=== PATIENT | female | born 1970 | race Caucasian/White ===

== ENCOUNTER 2020-07-27 00:08 | Emergency (ER) | payer MEDICARE, OTHER ==
[2020-07-27 00:20] VITALS: BP 111/63; PULSE 100; RESP 18; TEMP 97.2
--- NOTE | 2020-07-27 01:43 | XR ---
EXAM: XR Bilateral Wrists Complete, 3 or More Views CLINICAL HISTORY: Fall with pain. TECHNIQUE: Frontal, lateral and oblique views of the bilateral wrists. COMPARISON: No relevant prior studies available. FINDINGS: Bones/joints: Unremarkable. No acute fracture. No dislocation. Soft tissues: Unremarkable. No radiopaque foreign body. IMPRESSION: Negative bilateral wrist x-rays.
--- NOTE | 2020-07-27 02:02 | CT ---
EXAM: CT Head Without Intravenous Contrast CLINICAL HISTORY: Fall with pain. TECHNIQUE: Axial computed tomography images of the head/brain without intravenous contrast. CTDI is 12.9425 mGy and DLP is 382.85 mGy-cm. This CT exam was performed using one or more of the following dose reduction techniques: automated exposure control, adjustment of the mA and/or kV according to patient size, and/or use of iterative reconstruction technique. COMPARISON: None. FINDINGS: Brain: No acute findings. No acute intracranial hemorrhage, edema or abnormal mass-effect. Ventricles: No ventriculomegaly. Bones/joints: Unremarkable. No acute fracture. There appears to be a posterior fossa ventriculoperitoneal shunt. Soft tissues: Unremarkable. Sinuses: Unremarkable as visualized. No acute sinusitis. Mastoid air cells: Unremarkable as visualized. No mastoid effusion. IMPRESSION: No acute findings. EXAM: CT Cervical Spine Without Intravenous Contrast CLINICAL HISTORY: Fall with pain. TECHNIQUE: Axial computed tomography images of the cervical spine without intravenous contrast. CTDI is 11.685 mGy and DLP is 313.6 mGy-cm. This CT exam was performed using one or more of the following dose reduction techniques: automated exposure control, adjustment of the mA and/or kV according to patient size, and/or use of iterative reconstruction technique. COMPARISON: No relevant prior studies available. FINDINGS: Vertebrae: Unremarkable. No acute fracture. Discs/spinal canal/neural foramina: No acute findings. No spinal canal stenosis. Soft tissues: Tubing from a cranial peritoneal shunt seen extending along both right and left neck. 1 of these is likely nonfunctional.. IMPRESSION: No acute findings.
--- NOTE | 2020-07-27 02:05 | CT ---
EXAM: CT Maxillofacial Without Intravenous Contrast CLINICAL HISTORY: Fall with pain. TECHNIQUE: Axial computed tomography images of the face without intravenous contrast. CTDI is 12.9425 mGy and DLP is 382.85 mGy-cm. This CT exam was performed using one or more of the following dose reduction techniques: automated exposure control, adjustment of the mA and/or kV according to patient size, and/or use of iterative reconstruction technique. COMPARISON: No relevant prior studies available. FINDINGS: Bones/joints: Deformity of the right nasal bone concerning for an acute fracture. No other acute fracture is identified. Soft tissues: Unremarkable. Orbits: Unremarkable. Sinuses: Unremarkable. No air-fluid levels. IMPRESSION: Mild deformity of the right nasal bone. This is concerning for an acute fracture. Clinically correlate.
--- NOTE | 2020-07-27 02:38 | ED ---
General Adult HPI - General Chief complaint: Fall Stated complaint: Fall Time Seen by Provider: 07/27/20 00:18 Source: patient, EMS, RN notes reviewed, old records reviewed Mode of arrival: EMS - History of Present Illness Initial comments: 50-year-old female patient developmental delay to ED for fall. Patient reports that she fell forward that her face. Fall on outstretched arm. Bilateral wrist pain. No loss of consciousness. No headache. Nose pain with some deformity. No open laceration. Systemic: Pt denies fatigue, fever/chills, rash. Pt denies weakness, night sweats, weight loss. Neuro: Pt denies headache, visual disturbances, syncope or pre-syncope. HEENT: Pt denies ocular discharge or irritation, otalgia, rhinorrhea, pharyngitis or notable lymphadenopathy. Cardiopulmonary: Pt denies chest pain, SOB, heart palpitations, dyspnea on exertion. Abdominal/GI: Pt denies abdominal pain, n/v/d. : Pt denies dysuria, burning w/ urination, frequency/urgency. Denies new onset urinary or bowel incontinence. MSK: Pt denies myalgia, loss of strength or function in extremities. Neuro: Pt denies new onset weakness, paresthesias. - Related Data Allergies Allergy/AdvReac Type Severity Reaction Status Date / Time chocolate flavor Allergy Unknown Verified 07/27/20 01:08 Review of Systems ROS Statement: Those systems with pertinent positive or pertinent negative responses have been documented in the HPI. ROS Other: All systems not noted in ROS Statement are negative. Past Medical History Past Medical History: Unable to Obtain History of Any Multi-Drug Resistant Organisms: Unobtainable Past Surgical History: Unable to Obtain Past Psychological History: Unable to Obtain Smoking Status: Never smoker Past Alcohol Use History: None Reported Past Drug Use History: None Reported General Exam - General Exam Comments Initial Comments: Constitutional: NAD, AOX3, Pt has pleasant affect. HEENT: NC/AT, trachea midline, neck supple, no lymphadenopathy. Posterior pharynx non erythematous, without exudates. External ears appear normal, without discharge. Mucous membranes moist. Eyes PERRLA, EOM intact. There is no scleral icterus. No pallor noted. Cardiopulmonary: RRR, no murmurs, rubs or gallops, no JVD noted. Lungs CTAB in anterior and posterior jones. No peripheral edema. Abdominal exam: Abdomen soft and non-distended. Abdomen non-tender to palpation in all 4 quadrants. Bowel sounds active in LLQ. No hepatosplenomegaly. No ecchymosis Neuro: CN II-XII intact. No nuchal rigidity. No raccon eyes, no calabrese sign, no hemotympanum. No cervical spinal tenderness. MSK: Mild left snuffbox tenderness left-sided. Radial pulse +2. Thumb spica splint placed. Neurovascularly intact before and after splint placement. No focal area of tenderness in the right wrist. No upper tenderness. Mild deformity to nose. No septal hematoma. No open laceration. Course Vital Signs 07/27/20 00:10 Temperature 97.2 F L Pulse Rate 100 Respiratory 18 Rate Blood Pressure 111/63 O2 Sat by Pulse 100 Oximetry Procedures - Orthopedic Splinting/Casting Injury #1 Side: left Upper Extremity Immobilizer: thumb spica Medical Decision Making - Medical Decision Making 50-year-old feel patient needed for fall. Patient fell and hit her face. Patient has nasal bone fracture, no open laceration, plain films wrist are negative. Left snuffbox tenderness. Placed in thumb spica splint. Discharged outpatient ENT and orthopedic follow-up. Return precautions. Case discussed with Dr. Mcdonough. Disposition Clinical Impression: Wrist sprain, Nasal fracture Disposition: HOME SELF-CARE Condition: Stable Instructions (If sedation given, give patient instructions): Wrist Sprain (ED), Nasal Fracture (ED) Additional Instructions: Follow-up with primary care provider, orthopedic consult andENT tomorrow. Continue to wear splint. Return to ER if any worsening symptoms. Is patient prescribed a controlled substance at d/c from ED?: No Referrals: Ochoa Funes DO [Primary Care Provider] - 1-2 days Pierce Fulton MD [STAFF PHYSICIAN] - 1-2 days Ned Murphy MD [STAFF PHYSICIAN] - 1-2 days
== END 2020-07-27 03:30 | disposition home or self-care (01) ==
LOC: EEVIPCON 00:08 → EC 00:08
DX: S02.2XXA Fracture of nasal bones, initial encounter for closed fracture (principal); S63.509A Unspecified sprain of unspecified wrist, initial encounter; R62.50 Unspecified lack of expected normal physiological development in childhood; Z91.018 Allergy to other foods; W18.00XA Striking against unspecified object with subsequent fall, initial encounter; Y92.89 Other specified places as the place of occurrence of the external cause
CPT/HCPCS: 70450; 70486; 72125; 99284

== ENCOUNTER 2022-02-05 14:34 | Inpatient (IN) | payer MEDICARE, OTHER ==
--- NOTE | 2022-02-05 16:21 | XR ---
EXAMINATION TYPE: XR chest 2V DATE OF EXAM: 02/05/2022 COMPARISON: X-ray dated 01/25/2011 HISTORY: Rales and chest pain TECHNIQUE: Frontal and lateral views of the chest are obtained. FINDINGS: Grossly unremarkable lungs. No pleural effusion or pneumothorax. No cardiomegaly. No gross aggressive bone lesion. Right-sided ART EDUCATOR shunt is noted. IMPRESSION: No acute pulmonary abnormality identified.
--- NOTE | 2022-02-05 16:21 | ED ---
General Adult HPI - General Chief complaint: Extremity Injury, Lower Stated complaint: toe injury Time Seen by Provider: 02/05/22 14:58 Source: patient, EMS Mode of arrival: EMS Limitations: altered mental status - History of Present Illness Initial comments: Patient is a 51-year-old female who presents to the emergency department via EMS from her long term for right great toe swelling/bruising. Patient is a poor historian. Per nurse who called long term patient has history of intellectual disability and cerebral palsy. They state that they noticed swelling and bruising of the toe today. Patient states she stubbed her toe however does not know how or when. States her toe is painful. Upon questioning patient has wet cough. She admits to cough as well as chest pain and shortness of breath with coughing. Also admits to chills. Denies headache, runny nose, congestion, sore throat, abdominal pain, nausea, vomiting, and other concerns. - Related Data Home Medications Medication Instructions Recorded Confirmed Brivaracetam [Briviact] 50 mg PO DAILY@59902/05/22 02/05/22 Calcium Carbonate/Vitamin D3 1 tab PO DAILY@59902/05/22 02/05/22 [Calcium 600-Vit D3 5 Mcg (200 Iu)] Desmopressin Acetate 0.2 mg PO DAILY@169902/05/22 02/05/22 Divalproex ER [Depakote ER] 500 mg PO BID@599,199902/05/22 02/05/22 Docusate [Colace] 100 mg PO BID@599,169902/05/22 02/05/22 Escitalopram [Lexapro] 20 mg PO DAILY@59902/05/22 02/05/22 Lacosamide [Vimpat] 200 mg PO BID@599,19002/05/22 02/05/22 Loratadine 10 mg PO DAILY@59902/05/22 02/05/22 Ipv-Agpf-Dbyzo Acid 1 cap PO DAILY@59902/05/22 02/05/22 [-U Capsule (formulary)] Psyllium Husk [Metamucil] 0.4 gm PO DAILY@59902/05/22 02/05/22 QUEtiapine FUMARATE [SEROquel] 200 mg PO HS@199902/05/22 02/05/22 QUEtiapine [SEROquel] 100 mg PO DAILY@1600 02/05/22 02/05/22 Previous Rx's Medication Instructions Recorded HYDROcodone/APAP 7.5-325MG [[place] 1 tab PO Q4HR PRN 3 Days #18 tab 02/05/22 7.5-325] Allergies Allergy/AdvReac Type Severity Reaction Status Date / Time chocolate flavor Allergy Unknown Verified 02/05/22 17:41 Review of Systems ROS Statement: Those systems with pertinent positive or pertinent negative responses have been documented in the HPI. ROS Other: All systems not noted in ROS Statement are negative. Past Medical History Past Medical History: Seizure Disorder Additional Past Medical History / Comment(s): Called long term to verify history: Cerebral Palsy, moderate intellectual delay, urinary incontince, swelling in legs is normal for patient, club feet History of Any Multi-Drug Resistant Organisms: Unobtainable Past Surgical History: Unable to Obtain Past Psychological History: Depression Smoking Status: Never smoker Past Alcohol Use History: None Reported Past Drug Use History: None Reported General Exam Limitations: altered mental status General appearance: alert, in no apparent distress Head exam: Present: atraumatic, normocephalic, normal inspection Eye exam: Present: normal appearance, PERRL, EOMI. Absent: scleral icterus, conjunctival injection, periorbital swelling Neck exam: Present: normal inspection, full ROM Respiratory exam: Present: rales. Absent: normal lung sounds bilaterally, respiratory distress, wheezes, rhonchi, stridor, accessory muscle use Cardiovascular Exam: Present: regular rate, normal rhythm, normal heart sounds. Absent: systolic murmur, diastolic murmur, rubs, gallop, clicks GI/Abdominal exam: Present: soft, normal bowel sounds. Absent: distended, tenderness, guarding, rebound, rigid Extremities exam: Present: pedal edema (3+ bilateral ), other (swelling, erythema, ecchymosis of great right toe. tender on dorsal side. neurovascularly intact ) Neurological exam: Present: alert, oriented X3, CN II-XII intact Psychiatric exam: Present: normal affect, normal mood Skin exam: Present: warm, dry, intact, normal color. Absent: rash Course Vital Signs 02/05/22 02/05/22 02/05/22 14:36 18:07 18:17 Temperature 97.6 F Pulse Rate 83 84 80 Respiratory 18 Rate Blood Pressure 142/88 O2 Sat by Pulse 100 Oximetry Medical Decision Making - Medical Decision Making This is a 51-year-old female who presents with right great toe pain, swelling, bruising. History is difficult to obtain. The right great toe is swollen with bruising on the dorsal side. Patient reports severe pain. Neurovascularly intact. Patient has significant swelling of the bilateral legs and feet. 3+ pitting edema. Unaware of this is a new or old issue for the patient. Patient consistently has wet cough during my exam. Rales present. States she has chest pain and shortness of breath when she coughs. No previous documentation from medical history. Regular heart rate and rhythm. No murmurs gallops or rubs are appreciated. No S3 or S4. No JVD. The nurse did call the group home who state the swelling of the lower extremities is a chronic issue for patient. Apparently patient had upper respiratory infection this week and was tested for covid-19 which was negative. With little information I will obtain laboratory studies and imaging for CHF and pneumonia rule out as well as image the right great toe for injury. Laboratory studies significant for hyponatremia at 116. Negative troponin and BNP. Chest x-ray is negative for acute process. IV fluids initiated. Urine osmolality, urine sodium, and urine protein/creatinine ordered. Timed repeat CBC ordered. Right foot x-ray shows a nondisplaced transverse fracture of the proximal metaphysis of the first proximal phalanx. The toe was dannie taped patient was placed in cast boot. Patient is on Lexapro which could be an etiology to her hyponatremia. Case discussed with Jena Campbell NP. Patient will be admitted to her service with nephrology consult. Patient updated with results and is agreeable to admission. Patient admitted in stable condition. Dr. Li is my attending. - Lab Data Result diagrams: 02/05/22 16:18 02/05/22 16:18 Lab Results 02/05/22 02/05/22 02/05/22 Range/Units 16:18 16:18 16:18 WBC 6.5 (3.8-10.6) k/uL RBC 3.92 (3.80-5.40) m/uL Hgb 12.5 (11.4-16.0) gm/dL Hct 37.8 (34.0-46.0) % MCV 96.5 (80.0-100.0) fL MCH 31.8 (25.0-35.0) pg MCHC 33.0 (31.0-37.0) g/dL RDW 12.9 (11.5-15.5) % Plt Count 224 (150-450) k/uL MPV 7.5 Neutrophils % 71 % Lymphocytes % 15 % Monocytes % 11 % Eosinophils % 0 % Basophils % 0 % Neutrophils # 4.6 (1.3-7.7) k/uL Lymphocytes # 1.0 (1.0-4.8) k/uL Monocytes # 0.7 (0-1.0) k/uL Eosinophils # 0.0 (0-0.7) k/uL Basophils # 0.0 (0-0.2) k/uL Sodium 116 L* (137-145) mmol/L Potassium 4.4 (3.5-5.1) mmol/L Chloride 86 L (98-107) mmol/L Carbon Dioxide 24 (22-30) mmol/L Anion Gap 6 mmol/L BUN 11 (7-17) mg/dL Creatinine 0.50 L (0.52-1.04) mg/dL Est GFR (CKD-EPI)AfAm >90 (>60 ml/min/1.73 sqM) Est GFR (CKD-EPI)NonAf >90 (>60 ml/min/1.73 sqM) Glucose 101 H (74-99) mg/dL Calcium 8.2 L (8.4-10.2) mg/dL Total Bilirubin 0.4 (0.2-1.3) mg/dL AST 27 (14-36) U/L ALT 10 (4-34) U/L Alkaline Phosphatase 62 (38-126) U/L Troponin I (0.000-0.034) ng/mL NT-Pro-B Natriuret Pep 287 pg/mL Total Protein 6.7 (6.3-8.2) g/dL Albumin 3.5 (3.5-5.0) g/dL Coronavirus (PCR) (Not Detectd) Influenza Type A RNA (Not Detectd) Influenza Type B (PCR) (Not Detectd) 02/05/22 02/05/2202/05/22 Range/Units 16:18 16:18 16:18 WBC (3.8-10.6) k/uL RBC (3.80-5.40) m/uL Hgb (11.4-16.0) gm/dL Hct (34.0-46.0) % MCV (80.0-100.0) fL MCH (25.0-35.0) pg MCHC (31.0-37.0) g/dL RDW (11.5-15.5) % Plt Count (150-450) k/uL MPV Neutrophils % % Lymphocytes % % Monocytes % % Eosinophils % % Basophils % % Neutrophils # (1.3-7.7) k/uL Lymphocytes # (1.0-4.8) k/uL Monocytes # (0-1.0) k/uL Eosinophils # (0-0.7) k/uL Basophils # (0-0.2) k/uL Sodium (137-145) mmol/L Potassium (3.5-5.1) mmol/L Chloride (98-107) mmol/L Carbon Dioxide (22-30) mmol/L Anion Gap mmol/L BUN (7-17) mg/dL Creatinine (0.52-1.04) mg/dL Est GFR (CKD-EPI)AfAm (>60 ml/min/1.73 sqM) Est GFR (CKD-EPI)NonAf (>60 ml/min/1.73 sqM) Glucose (74-99) mg/dL Calcium (8.4-10.2) mg/dL Total Bilirubin (0.2-1.3) mg/dL AST (14-36) U/L ALT (4-34) U/L Alkaline Phosphatase (38-126) U/L Troponin I <0.012 (0.000-0.034) ng/mL NT-Pro-B Natriuret Pep pg/mL Total Protein (6.3-8.2) g/dL Albumin (3.5-5.0) g/dL Coronavirus (PCR) Not Detected (Not Detectd) Influenza Type A RNA Not Detected (Not Detectd) Influenza Type B (PCR) Not Detected (Not Detectd) Disposition Clinical Impression: Toe fracture, right, Hyponatremia Disposition: ADMITTED IP TO THIS HOSP Condition: Fair
--- NOTE | 2022-02-05 16:25 | XR ---
EXAMINATION TYPE: XR foot complete RT DATE OF EXAM: 02/05/2022 COMPARISON: NONE INDICATION: Great toe pain, bruising and swelling TECHNIQUE: 3 views of the right foot. FINDINGS: Marked hallux valgus. Diffuse osteopenia. Subtle linear lucency at the proximal metaphysis of the fir st proximal phalanx, nondisplaced or stress fracture can't be excluded, please correlate clinically. Short third and fourth metatarsal bones, likely congenital. Significant soft tissue swelling of the d orsum of the foot. No soft tissue gas. IMPRESSION: Suspected nondisplaced transverse fracture of the proximal metaphysis of the first proximal phalanx, please correlate clinically. Severe hallux valgus. Diffuse osteopenia. Other findings as described ab ove.
[2022-02-05] MEDS ORDERED: ALBUTEROL NEBULIZED 2.5 MG/3 ML INHALATION STA (16:29)
[2022-02-05 16:32] LABS: Basophils % (A) 0 %; Eosinophils % (A) 0 %; HCT 37.8 % (34.0-46.0); HGB 12.5 gm/dL (11.4-16.0); Lymphocytes % (A) 15 %; MCH 31.8 pg (25.0-35.0); MCV 96.5 fL (80.0-100.0); Mean Platelet Volume 7.5; Monocytes # (A) 0.7 k/uL (0-1.0); Monocytes % (A) 11 %; Neutrophils # (A) 4.6 k/uL (1.3-7.7); Neutrophils % (A) 71 %; Platelet Count 224 k/uL (150-450); RBC 3.92 m/uL (3.80-5.40); RDW 12.9 % (11.5-15.5); WBC 6.5 k/uL (3.8-10.6)
[2022-02-05 16:41] LABS: ALT 10 U/L (4-34); AST 27 U/L (14-36); African American GFR (CKD) >90 (>60 ml/min/1.73 sqM); Albumin 3.5 g/dL (3.5-5.0); Alkaline Phosphatase 62 U/L (38-126); Anion Gap 6 mmol/L; Blood Urea Nitrogen 11 mg/dL (7-17); Calcium 8.2 mg/dL (8.4-10.2); Carbon Dioxide 24 mmol/L (22-30); Chloride 86 mmol/L (98-107); Glucose 101 mg/dL (74-99); Non-African American GFR(CKD) >90 (>60 ml/min/1.73 sqM); Potassium 4.4 mmol/L (3.5-5.1); Total Bilirubin 0.4 mg/dL (0.2-1.3); Total Protein 6.7 g/dL (6.3-8.2)
[2022-02-05] MEDS ORDERED: HYDROcodone/APAP 10-325MG 1 EACH TAB PO ONE (16:46)
[2022-02-05 17:07] LABS: Sodium 116 mmol/L (137-145)
[2022-02-05] MEDS ORDERED: SODIUM CHLORIDE 0.9% 2,000 ML IV STA (17:08)
[2022-02-05] MEDS ORDERED: HYDROcodone/APAP 5-325MG 1 EACH TAB PO PRN (17:27)
[2022-02-05] MEDS ORDERED: NALOXONE 0.4 MG/ML 1 ML VIAL IV PRN (17:27)
[2022-02-05] MEDS: SODIUM CHLORIDE 0.9% 1,000 ML IV SCH (17:44)
[2022-02-05] MEDS ORDERED: LACOSAMIDE 50 MG TABLET PO ONE (20:00)
[2022-02-05] MEDS ORDERED: LACOSAMIDE 150 MG TABLET PO SCH (20:00)
[2022-02-05] MEDS: QUEtiapine 200 MG TAB PO SCH (20:06)
[2022-02-05] MEDS: DIVALPROEX ER 500 MG TAB.ER.24H PO SCH (20:06)
[2022-02-05 21:25] LABS: ALT 9 U/L (4-34); AST 21 U/L (14-36); African American GFR (CKD) >90 (>60 ml/min/1.73 sqM); Albumin 3.1 g/dL (3.5-5.0); Alkaline Phosphatase 56 U/L (38-126); Anion Gap 7 mmol/L; Blood Urea Nitrogen 10 mg/dL (7-17); Calcium 7.6 mg/dL (8.4-10.2); Carbon Dioxide 23 mmol/L (22-30); Chloride 89 mmol/L (98-107); Glucose 98 mg/dL (74-99); Non-African American GFR(CKD) >90 (>60 ml/min/1.73 sqM); Potassium 3.6 mmol/L (3.5-5.1); Total Bilirubin 0.4 mg/dL (0.2-1.3); Total Protein 6.2 g/dL (6.3-8.2)
[2022-02-05 21:27] LABS: Sodium 119 mmol/L (137-145)
[2022-02-06 04:12] LABS: Protein/Creatinine Ratio,Urine 1.067
[2022-02-06 04:31] LABS: Appearance,Urine Cloudy (Clear); Bacteria,Urine Few /hpf; Bilirubin,Urine Negative (Negative); Blood,Urine Small (Negative); Color,Urine Light Yellow; Glucose,Urine (UA) Negative (Negative); Ketones,Urine Negative (Negative); Leukocyte Esterase,Urine Moderate (Negative); Nitrite,Urine Negative (Negative); Protein,Urine Negative (Negative); RBC,Urine 6 /hpf (0-5); Specific Gravity,Urine 1.002 (1.001-1.035); Urobilinogen,Urine <2.0 mg/dL (<2.0); WBC,Urine 1 /hpf (0-5)
[2022-02-06] MEDS: DIVALPROEX ER 500 MG TAB.ER.24H PO SCH ×2 (06:19→19:31)
[2022-02-06] MEDS: DOCUSATE 100 MG CAP PO SCH ×2 (06:19→16:38)
[2022-02-06] MEDS: ESCITALOPRAM 20 MG TAB PO SCH (06:19)
[2022-02-06] MEDS: CALCIUM CARB-VIT D 500 MG-5 MCG TAB PO SCH (06:19)
[2022-02-06] MEDS: PRENATAL VIT-IRON-FOLIC ACID 1 EACH TABLET PO SCH (06:19)
[2022-02-06] MEDS: LORATADINE 10 MG TAB PO SCH (06:20)
[2022-02-06] MEDS: LACOSAMIDE 50 MG TABLET PO SCH ×2 (06:20→19:31)
[2022-02-06] MEDS: LACOSAMIDE 150 MG TABLET PO SCH ×2 (06:20→19:31)
[2022-02-06] MEDS: PSYLLIUM HUSK 100% 6 GM PACKET PO SCH (06:23)
[2022-02-06] MEDS: NON FORMULARY DRUG (Brivaracetam [Briviact] 50 MG Tablet) PO SCH (06:24)
[2022-02-06 08:59] LABS: African American GFR (CKD) >90 (>60 ml/min/1.73 sqM); Anion Gap 6 mmol/L; Blood Urea Nitrogen 11 mg/dL (7-17); Calcium 8.2 mg/dL (8.4-10.2); Carbon Dioxide 27 mmol/L (22-30); Chloride 97 mmol/L (98-107); Glucose 97 mg/dL (74-99); Non-African American GFR(CKD) >90 (>60 ml/min/1.73 sqM); Potassium 4.2 mmol/L (3.5-5.1); Sodium 130 mmol/L (137-145)
[2022-02-06] MEDS ORDERED: DEXTROSE 5%-0.9% NACL 1,000 ML IV SCH (09:15)
[2022-02-06] MEDS ORDERED: DEXTROSE 5% IN WATER 1,000 ML IV ONE (09:50)
--- NOTE | 2022-02-06 11:10 | P.NPCON ---
History of Present Illness - Reason for Consult hyponatremia - History of Present Illness Reason for consultation: Hyponatremia History of present illness: Patient is a 51-year-old female seen in consultation for hyponatremia. Patient's sodium level on admission was 116 at 4:16 p.m. on 02/05/2022. Repeat sodium level around 11:45 PM was 119 and this morning it is 1:30. She is receiving normal saline. Nephrology was not notified of the consultation until the patient was seen in the morning. Normal saline was immediately discontinued and she was started on D5 W at 1 50 mL an hour to reverse the correction of hyponatremia. Patient has history of cerebral palsy. Patient states she tripped and stopped her left big toe. She does admit to drinking fluids but is not able to quantify as to how much exactly. She denies history of malignancy. She does take desmopressin for enuresis/incontinence. She also takes Depakote as well as Lexapro outpatient. I don't see any thiazide diuretics and her home medication list. She has been waiting. Denies hematuria or dysuria. No chest pain or shortness of breath. No edema. Vital signs are stable. General: Awake. No acute distress. HEENT: Head exam is unremarkable. LUNGS: Breath sounds decreased. HEART: Rate and Rhythm are regular. ABDOMEN: Soft, no distention. EXTREMITITES: No edema. Past Medical History Past Medical History: Seizure Disorder Additional Past Medical History / Comment(s): Called detention to verify history: Cerebral Palsy, moderate intellectual delay, urinary incontince, swelling in legs is normal for patient, club feet History of Any Multi-Drug Resistant Organisms: Unobtainable Past Surgical History: Unable to Obtain Past Psychological History: Depression Smoking Status: Never smoker Past Alcohol Use History: None Reported Past Drug Use History: None Reported Medications and Allergies Home Medications Medication Instructions Recorded Confirmed Type Brivaracetam [Briviact] 50 mg PO DAILY@59902/05/22 02/05/22 History Calcium Carbonate/Vitamin D3 1 tab PO DAILY@59902/05/22 02/05/22 History [Calcium 600-Vit D3 5 Mcg (200 Iu)] Desmopressin Acetate 0.2 mg PO DAILY@1700 02/05/22 02/05/22 History Divalproex ER [Depakote ER] 500 mg PO BID@599,199902/05/22 02/05/22 History Docusate [Colace] 100 mg PO BID@599,1700 02/05/22 02/05/22 History Escitalopram [Lexapro] 20 mg PO DAILY@59902/05/22 02/05/22 History HYDROcodone/APAP 7.5-325MG [[place] 1 tab PO Q4HR PRN 3 Days #18 tab 02/05/22 Rx 7.5-325] Lacosamide [Vimpat] 200 mg PO BID@599,1900 02/05/22 02/05/22 History Loratadine 10 mg PO DAILY@59902/05/22 02/05/22 History Fre-Jnsg-Zivkv Acid 1 cap PO DAILY@59902/05/22 02/05/22 History [-U Capsule (formulary)] Psyllium Husk [Metamucil] 0.4 gm PO DAILY@59902/05/22 02/05/22 History QUEtiapine FUMARATE [SEROquel] 200 mg PO HS@199902/05/22 02/05/22 History QUEtiapine [SEROquel] 100 mg PO DAILY@1600 02/05/22 02/05/22 History Allergies Allergy/AdvReac Type Severity Reaction Status Date / Time chocolate flavor Allergy Unknown Verified 02/05/22 17:41 Physical Exam Vitals: Vital Signs Temp Pulse Resp BP Pulse Ox 02/06/22 10:40 72 16 120/70 99 02/06/22 07:45 97.5 F L 77 16 111/52 98 02/06/22 06:00 70 16 120/66 100 02/06/22 03:00 73 16 111/58 100 02/05/22 19:55 83 18 115/75 97 02/05/22 18:17 80 02/05/22 18:07 84 02/05/22 14:36 97.6 F 83 18 142/88 100 Intake and Output 02/05/22 02/06/22 02/06/22 22:59 06:59 14:59 Output Total 1100 Balance -1100 Output: Urine 1100 Results - Lab Results Most recent lab results Calcium 8.2 mg/dL (8.4-10.2) L 02/06/22 07:16 Urine Creatinine 15.0 mg/dL 02/06/22 03:30 Urine Total Protein 16.0 mg/dL 02/06/22 03:30 02/05/22 16:18 02/06/22 07:16 Assessment and Plan Plan: Assessment: 1. Hypovolemic hyponatremia rapidly corrected with normal saline. Sodium level was 116 at 4:15 PM on 02/05/2022 and up to 130 this morning at 7:30 AM. Urine osmolality 81. TSH normal. 2. History of cerebral palsy. 3. No proteinuria on UA however UPC 1.06 g. Further workup outpatient. Plan: D5W started this morning to reverse correction of hyponatremia. Repeat sodium level at noon. Follow-up urine sodium level. Thank you for the consultation. I will continue to follow the patient with you during her hospital stay.
[2022-02-06] MEDS: SODIUM CHLORIDE 0.9% 1,000 ML IV SCH (12:14)
[2022-02-06] MEDS ORDERED: DESMOPRESSIN ACETATE 4 MCG/ML VIAL (MDV) IV STA (13:43)
[2022-02-06] MEDS ORDERED: DEXTROSE 5% IN WATER 250 ML IV ONE (16:26)
--- NOTE | 2022-02-06 16:35 | P.HPIM ---
History of Present Illness H&P Date: 02/06/22 This is a 51 year old patient with past medical history of cerebral palsy, intellectual delay, seizure disorder, and urinary incontinence. Patient presents to the hospital with concerns for right great toe swelling and bruising. Per patient had stubbed her toe does not no one she is complaining of pain of the right great toe. Her toe was taped and foot placed in cast boot. Patient also presents with cough, pleuritic chest pain and shortness of breath with coughing. She does admit to chills. Denies nausea vomiting diarrhea. No fever noted. Home medications include Briviact, Vimpat, Lexapro, Seroquel, Depakote. She is also on Claritin, desmopressin. Vital showing 97.5, heart rate 77, blood pressure 111/52, 90% room air. Patient received IV hydration in the EC and consult was placed to nephrology for hyponatremia. Her sodium had increased from 119 up to 130 this morning which had increased to fast, and normal saline was decreased this morning. We will start patient on 3 days of oral azithromycin for the cough and sputum production. She is 99% on room air. 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 REVIEW OF SYSTEMS: CONSTITUTIONAL: No fever, no malaise, no fatigue. Reports chills HEENT: No recent visual problems or hearing problems. Denied any sore throat. CARDIOVASCULAR: No chest pain, orthopnea, PND, no palpitations, no syncope. PULMONARY: Reports some shortness of breath, productive cough GASTROINTESTINAL: No diarrhea, no nausea, no vomiting, no abdominal pain. NEUROLOGICAL: No headaches, no weakness, no numbness. HEMATOLOGICAL: Denies any bleeding or petechiae. GENITOURINARY: Denies any burning micturition, frequency, or urgency. MUSCULOSKELETAL/RHEUMATOLOGICAL: Denies swelling. Reports pain to right great toe. Painful to palpation. ENDOCRINE: Denies any polyuria or polydipsia. The rest of the 14-point review of systems is negative. PHYSICAL EXAMINATION: GENERAL: The patient is alert and oriented x3, not in any acute distress. Well developed, well nourished. HEENT: Pupils are round and equally reacting to light. EOMI. No scleral icterus. No conjunctival pallor. Normocephalic, atraumatic. No pharyngeal erythema. No thyromegaly. CARDIOVASCULAR: S1 and S2 present. No murmurs, rubs, or gallops. PULMONARY: No wheezing, there is some coarse rhonchi scattered. ABDOMEN: Soft, nontender, nondistended, normoactive bowel sounds. No palpable organomegaly. MUSCULOSKELETAL: No joint swelling or deformity. EXTREMITIES: No cyanosis, clubbing. Right great toe has some erythema, it is taped to the 2nd digit and cast boot is in place. NEUROLOGICAL: Gross neurological examination did not reveal any focal deficits. SKIN: No rashes. Assessment and Plan Assessment Hyponatremia, possible from medication effect, has improved from 119 to 130 which is an abrupt increase and IV fluids have been adjusted to D5 by nephrology team. Purulent tracheobronchitis Nondisplaced fracture right great toe has been taped and foot in cast boot History cerebral palsy Intellectual delay Seizure disorder History urinary incontinence GI Prophylaxis DVT Prophylaxis Full Code Plan Nephrology consult Follow up sodium level IV fluids adjusted to D5 by nephrology team Patient will be started on short coarse of oral azithromycin Check Procalcitonin The impression and plan of care has been dictated by Sabra Rivas, Nurse Practitioner as directed. Dr. Tanner MD I have performed a history and physical examination and medical decision making of this patient, discussed the same with the dictator, and agree with the dic tators assessment and plan as written, documented as a scribe. Based on total visit time, I have performed more than 50% of this visit. Past Medical History Past Medical History: Seizure Disorder Additional Past Medical History / Comment(s): Called [facility] to verify history: Cerebral Palsy, moderate intellectual delay, urinary incontince, swelling in legs is normal for patient, club feet History of Any Multi-Drug Resistant Organisms: Unobtainable Past Surgical History: Unable to Obtain Past Psychological History: Depression Smoking Status: Never smoker Past Alcohol Use History: None Reported Past Drug Use History: None Reported Medications and Allergies Home Medications Medication Instructions Recorded Confirmed Type Brivaracetam [Briviact] 50 mg PO DAILY@59902/05/22 02/05/22 History Calcium Carbonate/Vitamin D3 1 tab PO DAILY@59902/05/22 02/05/22 History [Calcium 600-Vit D3 5 Mcg (200 Iu)] Desmopressin Acetate 0.2 mg PO DAILY@169902/05/22 02/05/22 History Divalproex ER [Depakote ER] 500 mg PO BID@599,199902/05/22 02/05/22 History Docusate [Colace] 100 mg PO BID@599,169902/05/22 02/05/22 History Escitalopram [Lexapro] 20 mg PO DAILY@59902/05/22 02/05/22 History HYDROcodone/APAP 7.5-325MG [[place] 1 tab PO Q4HR PRN 3 Days #18 tab 02/05/22 Rx 7.5-325] Lacosamide [Vimpat] 200 mg PO BID@599,1900 02/05/22 02/05/22 History Loratadine 10 mg PO DAILY@59902/05/22 02/05/22 History Eij-Zeoj-Gjfno Acid 1 cap PO DAILY@59902/05/22 02/05/22 History [-U Capsule (formulary)] Psyllium Husk [Metamucil] 0.4 gm PO DAILY@59902/05/22 02/05/22 History QUEtiapine FUMARATE [SEROquel] 200 mg PO HS@199902/05/22 02/05/22 History QUEtiapine [SEROquel] 100 mg PO DAILY@159902/05/22 02/05/22 History Allergies Allergy/AdvReac Type Severity Reaction Status Date / Time chocolate flavor Allergy Unknown Verified 02/05/22 17:41 Physical Exam Vitals: Vital Signs Temp Pulse Resp BP Pulse Ox 02/06/22 07:45 97.5 F L 77 16 111/52 98 02/06/22 06:00 70 16 120/66 100 02/06/22 03:00 73 16 111/58 100 02/05/22 19:55 83 18 115/75 97 02/05/22 18:17 80 02/05/22 18:07 84 02/05/22 14:36 97.6 F 83 18 142/88 100 Intake and Output 02/05/22 02/06/22 02/06/22 22:59 06:59 14:59 Output Total 1100 Balance -1100 Output: Urine 1100 Results CBC & Chem 7: 02/05/22 16:18 02/06/22 15:46 Labs: Abnormal Lab Results - Last 24 Hours (Table) 02/05/22 02/05/22 02/06/22 Range/Units 16:18 Unknown 03:30 Sodium 116 L* 119 L* (137-145) mmol/L Chloride 86 L 89 L (98-107) mmol/L Creatinine 0.50 L (0.52-1.04) mg/dL Glucose 101 H (74-99) mg/dL Calcium 8.2 L 7.6 L (8.4-10.2) mg/dL Total Protein 6.2 L (6.3-8.2) g/dL Albumin 3.1 L (3.5-5.0) g/dL Urine Appearance Cloudy H (Clear) Urine Blood Small H (Negative) Ur Leukocyte Esterase Moderate H (Negative) Urine RBC 6 H (0-5) /hpf Urine Bacteria Few H (None) /hpf 02/06/22 Range/Units 07:16 Sodium 130 L (137-145) mmol/L Chloride 97 L (98-107) mmol/L Creatinine (0.52-1.04) mg/dL Glucose (74-99) mg/dL Calcium 8.2 L (8.4-10.2) mg/dL Total Protein (6.3-8.2) g/dL Albumin (3.5-5.0) g/dL Urine Appearance (Clear) Urine Blood (Negative) Ur Leukocyte Esterase (Negative) Urine RBC (0-5) /hpf Urine Bacteria (None) /hpf Assessment and Plan Time with Patient: Less than 30
[2022-02-06] MEDS ORDERED: ALBUTEROL NEBULIZED 2.5 MG/3 ML INHALATION PRN (16:37)
[2022-02-06] MEDS: QUEtiapine 100 MG TAB PO SCH (16:56)
[2022-02-06] MEDS: AZITHROMYCIN 500 MG TAB PO SCH (16:56)
[2022-02-06] MEDS: QUEtiapine 200 MG TAB PO SCH (19:31)
[2022-02-06] MEDS: DEXTROSE 5% IN WATER 1,000 ML IV SCH (20:10)
[2022-02-07] MEDS: NON FORMULARY DRUG (Brivaracetam [Briviact] 50 MG Tablet) PO SCH (05:05)
[2022-02-07] MEDS: LACOSAMIDE 50 MG TABLET PO SCH ×2 (05:33→19:20)
[2022-02-07] MEDS: PSYLLIUM HUSK 100% 6 GM PACKET PO SCH (05:34)
[2022-02-07] MEDS: LORATADINE 10 MG TAB PO SCH (05:34)
[2022-02-07] MEDS: DOCUSATE 100 MG CAP PO SCH ×2 (05:34→16:19)
[2022-02-07] MEDS: LACOSAMIDE 150 MG TABLET PO SCH ×2 (05:34→19:20)
[2022-02-07] MEDS: DIVALPROEX ER 500 MG TAB.ER.24H PO SCH ×2 (05:34→19:20)
[2022-02-07] MEDS: CALCIUM CARB-VIT D 500 MG-5 MCG TAB PO SCH (05:34)
[2022-02-07] MEDS: PRENATAL VIT-IRON-FOLIC ACID 1 EACH TABLET PO SCH (05:55)
[2022-02-07] MEDS: ESCITALOPRAM 20 MG TAB PO SCH (05:55)
[2022-02-07] MEDS: DEXTROSE 5% IN WATER 1,000 ML IV SCH (06:49)
[2022-02-07 09:21] LABS: African American GFR (CKD) >90 (>60 ml/min/1.73 sqM); Anion Gap 8 mmol/L; Blood Urea Nitrogen 14 mg/dL (7-17); Calcium 8.2 mg/dL (8.4-10.2); Carbon Dioxide 22 mmol/L (22-30); Chloride 97 mmol/L (98-107); Glucose 87 mg/dL (74-99); Magnesium 1.9 mg/dL (1.6-2.3); Non-African American GFR(CKD) >90 (>60 ml/min/1.73 sqM); Potassium 4.3 mmol/L (3.5-5.1); Sodium 127 mmol/L (137-145)
--- NOTE | 2022-02-07 10:35 | P.PN ---
Subjective Patient is seen in follow-up for hyponatremia. Sodium level rapidly corrected to normal saline and she did receive DDAVP as well as D5W infusion yesterday. Sodium level came down to 124 as of last night and is 127 this morning. Patient has no active complaints. Oral intake has been fair. No vomiting or diarrhea. Vital signs are stable. General: Awake. No acute distress. HEENT: Head exam is unremarkable. LUNGS: Breath sounds decreased. HEART: Rate and Rhythm are regular. ABDOMEN: Soft, no distention. EXTREMITITES: No edema. Objective - Vital Signs Vital signs: Vital Signs Temp 98.3 F 02/07/22 05:00 Pulse 86 02/07/22 08:34 Resp 16 02/07/22 05:00 BP 105/65 02/07/22 05:00 Pulse Ox 97 02/07/22 05:00 FiO2 Intake & Output 02/06/22 02/07/22 02/07/22 18:59 06:59 18:59 Output Total 450 Balance -450 Weight 68.1 kg Output: Urine 450 Other: Voiding Method External Catheter Diaper Incontinent External Catheter # Voids 2 1 2 # Bowel Movements 1 - Labs CBC & Chem 7: 02/05/22 16:18 02/07/22 08:09 Labs: Abnormal Lab Results - Last 24 Hours (Table) 02/06/22 02/06/22 02/06/22 Range/Units 03:30 13:11 15:46 Sodium 130 L 129 L (137-145) mmol/L Chloride (98-107) mmol/L Calcium (8.4-10.2) mg/dL Ur Random Sodium <20 L (40-220) mmol/L 02/06/22 02/06/22 02/07/22 Range/Units 18:31 21:16 01:17 Sodium 127 L 124 L 124 L (137-145) mmol/L Chloride (98-107) mmol/L Calcium (8.4-10.2) mg/dL Ur Random Sodium (40-220) mmol/L 02/07/22 Range/Units 08:09 Sodium 127 L (137-145) mmol/L Chloride 97 L (98-107) mmol/L Calcium 8.2 L (8.4-10.2) mg/dL Ur Random Sodium (40-220) mmol/L Assessment and Plan Plan: Assessment: 1. Hypovolemic hyponatremia rapidly corrected with normal saline. Also component of poor solute intake. Patient is also on Keppra and Lexapro which can induce SIADH. Status post DDAVP and D5W infusion. Sodium level 124 last night and is up to 127 this morning. Urine osmolality 81. Urine sodium less than 20. TSH normal. 2. History of cerebral palsy. 3. No proteinuria on UA however UPC 1.06 g. Further workup outpatient. Plan: Encouraged oral intake. 1500 mL fluid restriction. Repeat labs in the morning. Currently off IV fluids.
[2022-02-07] MEDS ORDERED: ACETAMINOPHEN TAB 325 MG TAB PO PRN (15:15)
--- NOTE | 2022-02-07 15:16 | P.PN ---
Subjective Progress Note Date: 02/07/22 This is a 51 year old patient with past medical history of cerebral palsy, intellectual delay, seizure disorder, and urinary incontinence. Patient presents to the hospital with concerns for right great toe swelling and bruising. Per patient had stubbed her toe does not no one she is complaining of pain of the right great toe. Her toe was taped and foot placed in cast boot. Patient also presents with cough, pleuritic chest pain and shortness of breath with coughing. She does admit to chills. Denies nausea vomiting diarrhea. No fever noted. Home medications include Briviact, Vimpat, Lexapro, Seroquel, Depakote. She is also on Claritin, desmopressin. Vital showing 97.5, heart rate 77, blood pres sure 111/52, 90% room air. Patient received IV hydration in the EC and consult was placed to nephrology for hyponatremia. Her sodium had increased from 119 up to 130 this morning which had increased to fast, and normal saline was decreased this morning. We will start patient on 3 days of oral azithromycin for the cough and sputum production. She is 99% on room air. 02/07/2022 Patient evaluated today sitting up in the chair. She does report pain to the great toe and winces when the sheet is placed back on the foot. During examination her mood is pleasant, facial expressions are relaxed and she is witnessed to be wiggling her right great toe without difficulty. She continues with dannie taping, and cast boot. She continues to complain of cough with shortness of breath, additionally she has some faint crackles in the bases. Her procalcitonin level showing 0.06. Her sodium level is 127 she continues on IV fluids and is now on a 1500 cc fluid restriction. Potassium 4.3, chloride 97, BUN 14, creatinine 0.65, magnesium today 1.9. She continues on oral azithromax, albuterol. Vitals stable today, afebrile, heart rate 72, blood pressure 112/72, 98% room air. Review of Systems Constitutional: Denied any fatigue denied any fever. Cardio vascular: denied any chest pain, palpitations Gastrointestinal: denied any nausea, vomiting, diarrhea Pulmonary: Reports some shortness of breath, reports intermittent cough Neurologic denied any new focal deficits All inpatient medications were reviewed and appropriate changes in these medications as dictated in the interval history and assessment and plan. PHYSICAL EXAMINATION: GENERAL: The patient is alert and oriented x3, not in any acute distress. Well developed, well nourished. HEENT: Pupils are round and equally reacting to light. EOMI. No scleral icterus. No conjunctival pallor. Normocephalic, atraumatic. No pharyngeal erythema. No thyromegaly. CARDIOVASCULAR: S1 and S2 present. No murmurs, rubs, or gallops. PULMONARY: No wheezing, there is some coarse rhonchi scattered. ABDOMEN: Soft, nontender, nondistended, normoactive bowel sounds. No palpable organomegaly. MUSCULOSKELETAL: No joint swelling or deformity. EXTREMITIES: No cyanosis, clubbing. Right great toe has some erythema, it is taped to the 2nd digit and cast boot is in place. NEUROLOGICAL: Gross neurological examination did not reveal any focal deficits. SKIN: No rashes. Assessment and Plan Assessment Hyponatremia hypovolemic, possible from medication effect, current potassium is now 127 nephrology is following the patient closely Purulent tracheobronchitis, procalcitonin is negative at 0.06, will complete 2 more days of oral azithromycin empirically Nondisplaced fracture right great toe has been taped and foot in cast boot History cerebral palsy Intellectual delay Seizure disorder History urinary incontinence GI Prophylaxis DVT Prophylaxis Full Code Plan Nephrology consult Conntinues off IV fluids and 1500 fluid restriction Continue on oral azithromycin Follow up AM labs Pain management Patient will require sub acute rehab on discharge prior to return to senior living The impression and plan of care has been dictated by Sabra Rivas, Nurse Practitioner as directed. Dr. Tanner MD I have performed a history and physical examination and medical decision making of this patient, discussed the same with the dictator, and agree with the dictators assessment and plan as written, documented as a scribe. Based on total visit time, I have performed more than 50% of this visit. Objective - Vital Signs Vital signs: Vital Signs Temp 97.8 F 02/07/22 11:48 Pulse 72 02/07/22 11:48 Resp 16 02/07/22 11:48 BP 112/72 02/07/22 11:48 Pulse Ox 98 02/07/22 11:48 FiO2 Intake & Output 02/06/22 02/07/22 02/07/22 18:59 06:59 18:59 Intake Total 360 Output Total 450 Balance -450 360 Weight 68.1 kg Intake: Oral 360 Output: Urine 450 Other: Voiding Method External Catheter Diaper Incontinent External Catheter # Voids 2 1 2 # Bowel Movements 1 - Labs CBC & Chem 7: 02/05/22 16:18 02/07/22 08:09 Labs: Abnormal Lab Results - Last 24 Hours (Table) 02/06/22 02/06/22 02/06/22 Range/Units 03:30 13:11 15:46 Sodium 130 L 129 L (137-145) mmol/L Chloride (98-107) mmol/L Calcium (8.4-10.2) mg/dL Ur Random Sodium <20 L (40-220) mmol/L 02/06/22 02/06/22 02/07/22 Range/Units 18:31 21:16 01:17 Sodium 127 L 124 L 124 L (137-145) mmol/L Chloride (98-107) mmol/L Calcium (8.4-10.2) mg/dL Ur Random Sodium (40-220) mmol/L 02/07/22 Range/Units 08:09 Sodium 127 L (137-145) mmol/L Chloride 97 L (98-107) mmol/L Calcium 8.2 L (8.4-10.2) mg/dL Ur Random Sodium (40-220) mmol/L Assessment and Plan Time with Patient: Less than 30
[2022-02-07] MEDS: AZITHROMYCIN 500 MG TAB PO SCH (16:19)
[2022-02-07] MEDS: QUEtiapine 100 MG TAB PO SCH (16:20)
[2022-02-07] MEDS: QUEtiapine 200 MG TAB PO SCH (19:20)
[2022-02-08] MEDS: NON FORMULARY DRUG (Brivaracetam [Briviact] 50 MG Tablet) PO SCH (04:59)
[2022-02-08] MEDS: LORATADINE 10 MG TAB PO SCH (05:04)
[2022-02-08] MEDS: LACOSAMIDE 50 MG TABLET PO SCH ×2 (05:04→17:33)
[2022-02-08] MEDS: PSYLLIUM HUSK 100% 6 GM PACKET PO SCH (05:04)
[2022-02-08] MEDS: DIVALPROEX ER 500 MG TAB.ER.24H PO SCH ×2 (05:04→20:12)
[2022-02-08] MEDS: DOCUSATE 100 MG CAP PO SCH ×2 (05:04→17:28)
[2022-02-08] MEDS: LACOSAMIDE 150 MG TABLET PO SCH ×2 (05:04→17:33)
[2022-02-08] MEDS: CALCIUM CARB-VIT D 500 MG-5 MCG TAB PO SCH (05:04)
[2022-02-08] MEDS: PRENATAL VIT-IRON-FOLIC ACID 1 EACH TABLET PO SCH (05:57)
[2022-02-08] MEDS: ESCITALOPRAM 20 MG TAB PO SCH (05:57)
[2022-02-08] MEDS: HYDROcodone/APAP 5-325MG 1 EACH TAB PO PRN ×2 (09:34→20:19)
[2022-02-08 11:19] LABS: African American GFR (CKD) 100.3 (60.0-200.0); Anion Gap 7.1 mmol/L (10.00-18.00); Blood Urea Nitrogen 15.2 mg/dL (9.0-27.0); Calcium 8.5 mg/dL (8.7-10.3); Carbon Dioxide 23.9 mmol/L (20.0-27.5); Magnesium 1.9 mg/dL (1.5-2.4); Non-African American GFR(CKD) 86.6 (60.0-200.0); Potassium 4.6 mmol/L (3.5-5.5)
--- NOTE | 2022-02-08 11:24 | P.PN ---
Subjective Patient is seen in follow-up for hyponatremia. Sodium level 132. Resting in bed. Oral intake here. No vomiting or diarrhea. Vital signs are stable. General: Awake. No acute distress. HEENT: Head exam is unremarkable. LUNGS: Breath sounds decreased. HEART: Rate and Rhythm are regular. ABDOMEN: Soft, no distention. EXTREMITITES: No edema. Objective - Vital Signs Vital signs: Vital Signs Temp 97.8 F 02/08/22 05:00 Pulse 67 02/08/22 08:00 Resp 16 02/08/22 08:00 BP 133/87 02/08/22 05:00 Pulse Ox 95 02/08/22 05:00 FiO2 Intake & Output 02/07/22 02/08/22 02/08/22 18:59 06:59 18:59 Intake Total 600 540 Balance 600 540 Weight 69 kg Intake: Oral 600 540 Other: Voiding Method Diaper Diaper Diaper Incontinent Incontinent Incontinent External Catheter # Voids 3 4 # Bowel Movements 1 1 - Labs CBC & Chem 7: 02/05/22 16:18 02/08/22 07:06 Labs: Abnormal Lab Results - Last 24 Hours (Table) 02/07/22 02/08/22 Range/Units 17:19 07:06 Sodium 128 L 132 L (137-145) mmol/L Anion Gap 7.10 L (10.00-18.00) mmol/L Calcium 8.5 L (8.7-10.3) mg/dL Assessment and Plan Plan: Assessment: 1. Hypovolemic hyponatremia rapidly corrected with normal saline. Also component of poor solute intake. Patient is also on Keppra and Lexapro which can induce SIADH. Status post DDAVP and D5W infusion. Sodium level 132 today. Urine osmolality 81. Urine sodium less than 20. TSH normal. 2. History of cerebral palsy. 3. No proteinuria on UA however UPC 1.06 g. Further workup outpatient. Plan: Encouraged oral intake. 1500 mL fluid restriction. Stable to be discharged home from nephrology standpoint. Hold off on desmopressin. Patient to maintain 40-45 oz fluid restriction per day upon discharge. Repeat BMP and magnesium level 2-3 days postdischarge. Follow-up outpatient in 1 week.
--- NOTE | 2022-02-08 13:01 | P.DS ---
Providers Date of admission: 02/05/22 18:41 Attending physician: Tee Quinn Consults: 02/05/22 17:28 Consult Physician Routine Consulting Provider: Jonas Patel Consult Reason/Comments: hyponatremia Do you want consulting provider notified?: Yes Primary care physician: [facility] Course: Final Diagnosis Hyponatremia hypovolemic, possible from medication effect and poor oral intake, improved Bronchitis, resolved, lungs are clear, cough improved Nondisplaced fracture right great toe has been taped and foot in cast boot History cerebral palsy Intellectual delay Seizure disorder History urinary incontinence Full Code Discharge Disposition Patient stable for discharge to rehab for strengthening and plan to return to [facility]. She presented to sodium level of 116 it is now 132. Nephrology recommending to hold desmopressin repeat sodium level in 2-3 days and follow up outpatient in 1 week. Otherwise, follow up orthopedic for right great toe nondisplaced fracture, pain management and bowel regimine on discharge. One more day of oral azithromycin on discharge. Patient is on lexapro, which in combination with azithromycin risk for QT prolongation, QT interval reviewed; 397. Hospital Course This is a 51 year old patient with past medical history of cerebral palsy, intellectual delay, seizure disorder, and urinary incontinence. Patient presents to the hospital with concerns for right great toe swelling and bruising. Per patient had stubbed her toe does not no one she is complaining of pain of the right great toe. Her toe was taped and foot placed in cast boot. She will be discharged on pain managment and follow up with Dr Eason outpatient. Patient also presents with cough, pleuritic chest pain and shortness of breath with coughing. She received albuterol nebulized and is on day 2 of 3 of oral azithromycin. Symptoms have resolved, there is no shortness of breath, there is no wheezing noted, and she denies cough. Denies nausea vomiting diarrhea. No fever noted. Denies dysuria, denies abdominal pain, subprapubic pain. Home medications include Briviact, Vimpat, Lexapro, Seroquel, Depakote. She is also on Claritin, desmopressin. Vital showing 97.5, heart rate 77, blood pressure 111/52, 90% room air on admission. Patient received IV hydration in the EC and consult was placed to nephrology for hyponatremia. Her sodium had increased from 119 up to 130 while in the EC and had received IV fluids with normal saline. Nephrology evaluated the patient and she was started on D5 and received desmopressin IV. Sodium then dropped into the 120s and she was placed on fluid restriction. Sodium has now improved to 132 and oral desmopressin will be placed on hold for discharge. Other diagnostics Covid / Influenza A / Influenza B negative Urine showing cloudy urine, small blood, moderate luekocyte esterase, few bacteria. Urine random sodium <20. Chest xray showing no acute pulmonary abnormality Foot xray suspected nondisplaced transverse fracture of proximal metaphysis of the first proximal phalanx. There is also severe hallux vagus, diffuse osteopenia. EKG completed showing sinus rhythm heart rate 77, QT interval 397 Procalcitonin 0.06 02/08/2022 Patient evaluated today, she is up in the chair, she has been working with PT and will discharge to subacute rehab. Hold desmopressin and follow up sodium. Vitals today 100/65, 97% room air, afebrile, heart rate 71. Sodium 132, potassium 4.6, magnesium 1.9, calcium 8.5. She denies chest pain, shortness of breath. Denies nausea, vomiting, diarrhea. Bowels are moving. She is incontinent of urine which is baseline. Mentation at baseline as well. She complains of pain to right great toe, receiving norco on bowel regimen. Lungs are clear, S1 S2 auscultated. Abdomen is soft and nontender. No peripheral edema. Follow up and discharge instructions as above. Continue fluid restriction. Please see medication reconciliation for a list of current medication. Thank you for allowing us to participate in the care of this patient. The impression and plan of care has been dictated by Sabra Rivas, Nurse Practitioner as directed. Dr. Tanner MD I have performed a history and physical examination and medical decision making of this patient, discussed the same with the dictator, and agree with the dictators assessment and plan as written, documented as a scribe. Based on total visit time, I have performed more than 50% of this visit. Patient Condition at Discharge: Stable Plan - Discharge Summary Discharge Rx Participant: No New Discharge Prescriptions: New HYDROcodone/APAP 7.5-325MG [[place] 7.5-325] 1 tab PO Q4HR PRN 3 Days #18 tab PRN Reason: Pain Albuterol Nebulized [Ventolin Nebulized] 2.5 mg INHALATION RT-QID PRN ml PRN Reason: Shortness Of Breath Or Wheezing Continue Loratadine 10 mg PO DAILY@0600 Escitalopram [Lexapro] 20 mg PO DAILY@0600 Docusate [Colace] 100 mg PO BID@0600,1700 Brivaracetam [Briviact] 50 mg PO DAILY@0600 QUEtiapine FUMARATE [SEROquel] 200 mg PO HS@2000 Xxh-Tuwb-Rlkay Acid [-U Capsule (formulary)] 1 cap PO DAILY@0600 Calcium Carbonate/Vitamin D3 [Calcium 600-Vit D3 5 Mcg (200 Iu)] 1 tab PO DAILY@0600 QUEtiapine [SEROquel] 100 mg PO DAILY@1600 Divalproex ER [Depakote ER] 500 mg PO BID@0600,2000 Psyllium Husk [Metamucil] 0.4 gm PO DAILY@0600 Lacosamide [Vimpat] 200 mg PO BID@0600,1900 #4 tab Discontinued Desmopressin Acetate 0.2 mg PO DAILY@1700 Discharge Medication List Brivaracetam [Briviact] 50 mg PO DAILY@0602/05/22 [History] Calcium Carbonate/Vitamin D3 [Calcium 600-Vit D3 5 Mcg (200 Iu)] 1 tab PO DAILY@0600 02/05/22 [History] Divalproex ER [Depakote ER] 500 mg PO BID@06,199902/05/22 [History] Docusate [Colace] 100 mg PO BID@0600,1700 02/05/22 [History] Escitalopram [Lexapro] 20 mg PO DAILY@0602/05/22 [History] HYDROcodone/APAP 7.5-325MG [[place] 7.5-325] 1 tab PO Q4HR PRN 3 Days #18 tab 02/05/22 [Rx] Loratadine 10 mg PO DAILY@0602/05/22 [History] Wyz-Lume-Wlcgn Acid [-U Capsule (formulary)] 1 cap PO DAILY@0602/05/22 [History] Psyllium Husk [Metamucil] 0.4 gm PO DAILY@0600 02/05/22 [History] QUEtiapine FUMARATE [SEROquel] 200 mg PO HS@2000 02/05/22 [History] QUEtiapine [SEROquel] 100 mg PO DAILY@1600 02/05/22 [History] Albuterol Nebulized [Ventolin Nebulized] 2.5 mg INHALATION RT-QID PRN ml 02/08/22 [Rx] Lacosamide [Vimpat] 200 mg PO BID@0600,1900 #4 tab 02/08/22 [Rx] Follow up Appointment(s)/Referral(s): Ochoa Funes DO [Primary Care Provider] - 1-2 days Aaron Kent MD [Medical Doctor] - 1-2 days Jonas Patel DO [STAFF PHYSICIAN] - 1 Week Ambulatory/Diagnostic Orders: Basic Metabolic Panel [LAB.AMB] Time Frame: 2 Days, Location: None Selected Activity/Diet/Wound Care/Special Instructions: Continue to hold desmopressin Repeat labs in 2-3 to monitor sodium level Continue with Fluid restriction 40 to 45 oz (1200 to 1350 mls) per 24 hours Follow up with Dr Patel in 1 week Follow up with orthopedics outpatient Continue with taping and boot for right great toe fracture Continue with pain management Discharge Disposition: TRANSFER TO SNF/ECF
[2022-02-08] MEDS: QUEtiapine 100 MG TAB PO SCH (17:28)
[2022-02-08] MEDS: AZITHROMYCIN 500 MG TAB PO SCH (17:28)
[2022-02-08] MEDS: QUEtiapine 200 MG TAB PO SCH (20:12)
[2022-02-09] MEDS: NON FORMULARY DRUG (Brivaracetam [Briviact] 50 MG Tablet) PO SCH (04:57)
[2022-02-09] MEDS: LACOSAMIDE 150 MG TABLET PO SCH ×2 (05:43→20:04)
[2022-02-09] MEDS: LORATADINE 10 MG TAB PO SCH (05:43)
[2022-02-09] MEDS: ESCITALOPRAM 20 MG TAB PO SCH (05:43)
[2022-02-09] MEDS: CALCIUM CARB-VIT D 500 MG-5 MCG TAB PO SCH (05:43)
[2022-02-09] MEDS: PRENATAL VIT-IRON-FOLIC ACID 1 EACH TABLET PO SCH (05:43)
[2022-02-09] MEDS: PSYLLIUM HUSK 100% 6 GM PACKET PO SCH (05:44)
[2022-02-09] MEDS: DIVALPROEX ER 500 MG TAB.ER.24H PO SCH ×2 (05:44→20:04)
[2022-02-09] MEDS: DOCUSATE 100 MG CAP PO SCH ×2 (05:44→15:32)
[2022-02-09] MEDS: LACOSAMIDE 50 MG TABLET PO SCH ×2 (05:44→20:04)
--- NOTE | 2022-02-09 11:18 | P.PN ---
Subjective Patient is seen in follow-up for hyponatremia. Sodium level 132 as of yesterday. Resting in bed. Oral intake here. No vomiting or diarrhea. Vital signs are stable. General: Awake. No acute distress. HEENT: Head exam is unremarkable. LUNGS: Breath sounds decreased. HEART: Rate and Rhythm are regular. ABDOMEN: Soft, no distention. EXTREMITITES: No edema. Objective - Vital Signs Vital signs: Vital Signs Temp 98.2 F 02/09/22 05:21 Pulse 79 02/09/22 05:21 Resp 18 02/09/22 05:21 BP 109/70 02/09/22 05:21 Pulse Ox 97 02/09/22 05:21 FiO2 Intake & Output 02/08/22 02/09/22 02/09/22 18:59 06:59 18:59 Intake Total 480 Output Total 500 Balance -20 Intake: Oral 480 Output: Urine 500 Other: Voiding Method Diaper Diaper Diaper Incontinent Incontinent Incontinent # Voids 2 0 # Bowel Movements 1 - Labs CBC & Chem 7: 02/05/22 16:18 02/08/22 07:06 Labs: Abnormal Lab Results - Last 24 Hours (Table) 02/08/22 Range/Units 07:06 Sodium 132 L (135-145) mmol/L Anion Gap 7.10 L (10.00-18.00) mmol/L Calcium 8.5 L (8.7-10.3) mg/dL Assessment and Plan Plan: Assessment: 1. Hypovolemic hyponatremia rapidly corrected with normal saline. Also compo nent of poor solute intake. Patient is also on Keppra and Lexapro which can induce SIADH. Status post DDAVP and D5W infusion. Sodium level 132 as of yesterday. Urine osmolality 81. Urine sodium less than 20. TSH normal. 2. History of cerebral palsy. 3. No proteinuria on UA however UPC 1.06 g. Further workup outpatient. Plan: Encouraged oral intake. 1500 mL fluid restriction. Stable to be discharged home from nephrology standpoint. Hold off on desmopressin. Patient to maintain 40-45 oz fluid restriction per day upon discharge. Repeat BMP and magnesium level 2-3 days postdischarge. Follow-up outpatient in 1 week.
[2022-02-09] MEDS: QUEtiapine 100 MG TAB PO SCH (15:33)
[2022-02-09] MEDS: QUEtiapine 200 MG TAB PO SCH (20:59)
--- NOTE | 2022-02-10 00:10 | P.PN ---
Subjective Progress Note Date: 02/09/22 This is a 51 year old patient with past medical history of cerebral palsy, intellectual delay, seizure disorder, and urinary incontinence. Patient presents to the hospital with concerns for right great toe swelling and bruising. Per patient had stubbed her toe does not no one she is complaining of pain of the right great toe. Her toe was taped and foot placed in cast boot. Patient also presents with cough, pleuritic chest pain and shortness of breath with coughing. She does admit to chills. Denies nausea vomiting diarrhea. No fever noted. Home medications include Briviact, Vimpat, Lexapro, Seroquel, Depakote. She is also on Claritin, desmopressin. Vital showing 97.5, heart rate 77, blood pres sure 111/52, 90% room air. Patient received IV hydration in the EC and consult was placed to nephrology for hyponatremia. Her sodium had increased from 119 up to 130 this morning which had increased to fast, and normal saline was decreased this morning. We will start patient on 3 days of oral azithromycin for the cough and sputum production. She is 99% on room air. 02/07/2022 Patient evaluated today sitting up in the chair. She does report pain to the great toe and winces when the sheet is placed back on the foot. During examination her mood is pleasant, facial expressions are relaxed and she is witnessed to be wiggling her right great toe without difficulty. She continues with dannie taping, and cast boot. She continues to complain of cough with shortness of breath, additionally she has some faint crackles in the bases. Her procalcitonin level showing 0.06. Her sodium level is 127 she continues on IV fluids and is now on a 1500 cc fluid restriction. Potassium 4.3, chloride 97, BUN 14, creatinine 0.65, magnesium today 1.9. She continues on oral azithromax, albuterol. Vitals stable today, afebrile, heart rate 72, blood pressure 112/72, 98% room air. 02/08/2022 Patient evaluated today, she is up in the chair, she has been working with PT and will discharge to subacute rehab. Hold desmopressin and follow up sodium. Vitals today 100/65, 97% room air, afebrile, heart rate 71. Sodium 132, potassium 4.6, magnesium 1.9, calcium 8.5. She denies chest pain, shortness of breath. Denies nausea, vomiting, diarrhea. Bowels are moving. She is incontinent of urine which is baseline. Mentation at baseline as well. She complains of pain to right great toe, receiving norco on bowel regimen. Lungs are clear, S1 S2 auscultated. Abdomen is soft and nontender. No peripheral edema. Follow up and discharge instructions as above. Continue fluid restriction. 02/09/2022 Patient is pending insurance auth for rehab. No acute events overnight. She is working with PT and sitting up in the chair today. Desmopression on hold and will check sodium level tomorrow. She denies pain. Remains afebrile, blood pressure 115/69. Review of Systems Constitutional: Denied any fatigue denied any fever. Cardio vascular: denied any chest pain, palpitations Gastrointestinal: denied any nausea, vomiting, diarrhea Pulmonary: Denies cough, denies shortness of breath Neurologic denied any new focal deficits All inpatient medications were reviewed and appropriate changes in these medications as dictated in the interval history and assessment and plan. PHYSICAL EXAMINATION: GENERAL: The patient is alert and oriented x3, not in any acute distress. Well developed, well nourished. HEENT: Pupils are round and equally reacting to light. EOMI. No scleral icterus. No conjunctival pallor. Normocephalic, atraumatic. No pharyngeal erythema. No thyromegaly. CARDIOVASCULAR: S1 and S2 present. No murmurs, rubs, or gallops. PULMONARY: No wheezing, there is some coarse rhonchi scattered. ABDOMEN: Soft, nontender, nondistended, normoactive bowel sounds. No palpable organomegaly. MUSCULOSKELETAL: No joint swelling or deformity. EXTREMITIES: No cyanosis, clubbing. Right great toe has some erythema, it is taped to the 2nd digit and cast boot is in place. NEUROLOGICAL: Gross neurological examination did not reveal any focal deficits. SKIN: No rashes. Assessment and Plan Assessment Hyponatremia hypovolemic, possible from medication effect, sodium has improved will hold desmopressin Bronchitis, improved, completed 3 days of oral antibiotics Nondisplaced fracture right great toe has been taped and foot in cast boot History cerebral palsy Intellectual delay Seizure disorder History urinary incontinence GI Prophylaxis DVT Prophylaxis Full Code Plan Nephrology consult Conntinues off IV fluids 1500 fluid restriction Follow up AM labs Pain management Pending insurance authorization and discharge to [facility] The impression and plan of care has been dictated by Sabra Rivas, Nurse Practitioner as directed. Dr. Tanner MD I have performed a history and physical examination and medical decision making of this patient, discussed the same with the dictator, and agree with the dictators assessment and plan as written, documented as a scribe. Based on total visit time, I have performed more than 50% of this visit. Objective - Vital Signs Vital signs: Vital Signs Temp 98.2 F 02/09/22 05:21 Pulse 79 02/09/22 05:21 Resp 18 02/09/22 05:21 BP 109/70 02/09/22 05:21 Pulse Ox 97 02/09/22 05:21 FiO2 Intake & Output 02/08/22 02/09/22 02/09/22 18:59 06:59 18:59 Intake Total 480 Output Total 500 Balance -20 Intake: Oral 480 Output: Urine 500 Other: Voiding Method Diaper Diaper Diaper Incontinent Incontinent Incontinent # Voids 2 0 # Bowel Movements 1 - Labs CBC & Chem 7: 02/05/22 16:18 02/08/22 07:06 Labs: Abnormal Lab Results - Last 24 Hours (Table) 02/08/22 Range/Units 07:06 Sodium 132 L (135-145) mmol/L Anion Gap 7.10 L (10.00-18.00) mmol/L Calcium 8.5 L (8.7-10.3) mg/dL Assessment and Plan Time with Patient: Less than 30
[2022-02-10] MEDS: PSYLLIUM HUSK 100% 6 GM PACKET PO SCH (05:53)
[2022-02-10] MEDS: NON FORMULARY DRUG (Brivaracetam [Briviact] 50 MG Tablet) PO SCH (05:53)
[2022-02-10] MEDS: LACOSAMIDE 50 MG TABLET PO SCH ×2 (05:53→20:27)
[2022-02-10] MEDS: LACOSAMIDE 150 MG TABLET PO SCH ×2 (05:53→20:27)
[2022-02-10] MEDS: LORATADINE 10 MG TAB PO SCH (05:53)
[2022-02-10] MEDS: DIVALPROEX ER 500 MG TAB.ER.24H PO SCH ×2 (05:53→20:26)
[2022-02-10] MEDS: DOCUSATE 100 MG CAP PO SCH ×2 (05:53→16:39)
[2022-02-10] MEDS: PRENATAL VIT-IRON-FOLIC ACID 1 EACH TABLET PO SCH (06:19)
[2022-02-10] MEDS: ESCITALOPRAM 20 MG TAB PO SCH (06:20)
[2022-02-10] MEDS: CALCIUM CARB-VIT D 500 MG-5 MCG TAB PO SCH (06:23)
--- NOTE | 2022-02-10 09:59 | P.PN ---
Subjective Patient is seen in follow-up for hyponatremia. Sodium level 132 dated 02/08/2022. Morning labs pending. Resting in bed. Oral intake is good. No vomiting or diarrhea. Vital signs are stable. General: Awake. No acute distress. HEENT: Head exam is unremarkable. LUNGS: Breath sounds decreased. HEART: Rate and Rhythm are regular. ABDOMEN: Soft, no distention. EXTREMITITES: No edema. Objective - Vital Signs Vital signs: Vital Signs Temp 97.5 F L 02/10/22 04:16 Pulse 84 02/10/22 04:16 Resp 18 02/10/22 04:16 BP 114/75 02/10/22 04:16 Pulse Ox 96 02/10/22 04:16 FiO2 Intake & Output 02/09/22 02/10/22 02/10/22 18:59 06:59 18:59 Intake Total 480 540 236 Output Total 850 Balance -370 540 236 Intake: Oral 480 540 236 Output: Urine 850 Other: Voiding Method Diaper Diaper Incontinent Incontinent # Voids 1 - Labs CBC & Chem 7: 02/05/22 16:18 02/08/22 07:06 Assessment and Plan Plan: Assessment: 1. Hypovolemic hyponatremia rapidly corrected with normal saline. Also component of poor solute intake. Patient is also on Keppra and Lexapro which can induce SIADH. Status post DDAVP and D5W infusion. Sodium level 132 dated 02/08/2022. Urine osmolality 81. Urine sodium less than 20. TSH normal. 2. History of cerebral palsy. 3. No proteinuria on UA however UPC 1.06 g. Further workup outpatient. Plan: Morning labs pending. Encouraged oral intake. 1500 mL fluid restriction. Stable to be discharged home from nephrology standpoint. Hold off on desmopressin. Patient to maintain 40-45 oz fluid restriction per day upon discharge. Repeat BMP and magnesium level 2-3 days postdischarge. Follow-up outpatient in 1 week.
[2022-02-10 11:46] LABS: African American GFR (CKD) >90 (>60 ml/min/1.73 sqM); Anion Gap 8 mmol/L; Blood Urea Nitrogen 25 mg/dL (7-17); Carbon Dioxide 22 mmol/L (22-30); Chloride 102 mmol/L (98-107); Glucose 86 mg/dL (74-99); Non-African American GFR(CKD) >90 (>60 ml/min/1.73 sqM); Potassium 4.2 mmol/L (3.5-5.1); Sodium 132 mmol/L (137-145)
--- NOTE | 2022-02-10 15:36 | P.PN ---
Subjective Progress Note Date: 02/10/22 This is a 51 year old patient with past medical history of cerebral palsy, intellectual delay, seizure disorder, and urinary incontinence. Patient presents to the hospital with concerns for right great toe swelling and bruising. Per patient had stubbed her toe does not no one she is complaining of pain of the right great toe. Her toe was taped and foot placed in cast boot. Patient also presents with cough, pleuritic chest pain and shortness of breath with coughing. She does admit to chills. Denies nausea vomiting diarrhea. No fever noted. Home medications include Briviact, Vimpat, Lexapro, Seroquel, Depakote. She is also on Claritin, desmopressin. Vital showing 97.5, heart rate 77, blood pres sure 111/52, 90% room air. Patient received IV hydration in the EC and consult was placed to nephrology for hyponatremia. Her sodium had increased from 119 up to 130 this morning which had increased to fast, and normal saline was decreased this morning. We will start patient on 3 days of oral azithromycin for the cough and sputum production. She is 99% on room air. 02/07/2022 Patient evaluated today sitting up in the chair. She does report pain to the great toe and winces when the sheet is placed back on the foot. During examination her mood is pleasant, facial expressions are relaxed and she is witnessed to be wiggling her right great toe without difficulty. She continues with dannie taping, and cast boot. She continues to complain of cough with shortness of breath, additionally she has some faint crackles in the bases. Her procalcitonin level showing 0.06. Her sodium level is 127 she continues on IV fluids and is now on a 1500 cc fluid restriction. Potassium 4.3, chloride 97, BUN 14, creatinine 0.65, magnesium today 1.9. She continues on oral azithromax, albuterol. Vitals stable today, afebrile, heart rate 72, blood pressure 112/72, 98% room air. 02/08/2022 Patient evaluated today, she is up in the chair, she has been working with PT and will discharge to subacute rehab. Hold desmopressin and follow up sodium. Vitals today 100/65, 97% room air, afebrile, heart rate 71. Sodium 132, potassium 4.6, magnesium 1.9, calcium 8.5. She denies chest pain, shortness of breath. Denies nausea, vomiting, diarrhea. Bowels are moving. She is incontinent of urine which is baseline. Mentation at baseline as well. She complains of pain to right great toe, receiving norco on bowel regimen. Lungs are clear, S1 S2 auscultated. Abdomen is soft and nontender. No peripheral edema. Follow up and discharge instructions as above. Continue fluid restriction. 02/09/2022 Patient is pending insurance auth for rehab. No acute events overnight. She is working with PT and sitting up in the chair today. Desmopression on hold and will check sodium level tomorrow. She denies pain. Remains afebrile, blood pressure 115/69. 02/10/2022 Patient is evaluated today sitting up in the chair. She has no new complaints today. States she has not had a BM yet, which she is on colace twice a day, abdomen is soft and nontender with positive bowel sounds. She reports pain to her right great toe and is on norco therapy for this. She will endorse pain if asked, otherwise she does not ask for pain medication but does appear to be in some discomfort during examination. Sodium today is stable at 132. Her magnesium is 1.9. Blood pressure 104/53, afebrile. Will discharge to rehab tomorrow. Review of Systems Constitutional: Denied any fatigue denied any fever. Cardio vascular: denied any chest pain, palpitations Gastrointestinal: denied any nausea, vomiting, diarrhea Pulmonary: Denies cough, denies shortness of breath Neurologic denied any new focal deficits All inpatient medications were reviewed and appropriate changes in these medications as dictated in the interval history and assessment and plan. PHYSICAL EXAMINATION: GENERAL: The patient is alert and oriented x3, not in any acute distress. Well developed, well nourished. HEENT: Pupils are round and equally reacting to light. EOMI. No scleral icterus. No conjunctival pallor. Normocephalic, atraumatic. No pharyngeal erythema. No t hyromegaly. CARDIOVASCULAR: S1 and S2 present. No murmurs, rubs, or gallops. PULMONARY: No wheezing, there is some coarse rhonchi scattered. ABDOMEN: Soft, nontender, nondistended, normoactive bowel sounds. No palpable organomegaly. MUSCULOSKELETAL: No joint swelling or deformity. EXTREMITIES: No cyanosis, clubbing. Right great toe has some erythema, it is taped to the 2nd digit and cast boot is in place. NEUROLOGICAL: Gross neurological examination did not reveal any focal deficits. SKIN: No rashes. Assessment and Plan Assessment Hyponatremia hypovolemic, possible from medication effect, sodium has improved will hold desmopressin Bronchitis, improved, completed 3 days of oral antibiotics Nondisplaced fracture right great toe has been taped and foot in cast boot History cerebral palsy Intellectual delay Seizure disorder History urinary incontinence GI Prophylaxis DVT Prophylaxis Full Code Plan Nephrology consult Conntinues off IV fluids 1500 fluid restriction Pain management Continue to hold desmopression Repeat sodium outpatient Pending insurance authorization and discharge to [facility] Plan for discharge tomorrow The impression and plan of care has been dictated by Sabra Rivas, Nurse Practitioner as directed. Dr. Tanner MD I have performed a history and physical examination and medical decision making of this patient, discussed the same with the dictator, and agree with the dictators assessment and plan as written, documented as a scribe. Based on total visit time, I have performed more than 50% of this visit. Objective - Vital Signs Vital signs: Vital Signs Temp 97.5 F L 02/10/22 04:16 Pulse 84 02/10/22 04:16 Resp 18 02/10/22 04:16 BP 114/75 02/10/22 04:16 Pulse Ox 96 02/10/22 04:16 FiO2 Intake & Output 02/09/22 02/10/22 02/10/22 18:59 06:59 18:59 Intake Total 480 540 236 Output Total 850 Balance -370 540 236 Intake: Oral 480 540 236 Output: Urine 850 Other: Voiding Method Diaper Diaper Incontinent Incontinent # Voids 1 - Labs CBC & Chem 7: 02/05/22 16:18 02/10/22 05:53 Assessment and Plan Time with Patient: Less than 30
[2022-02-10] MEDS: QUEtiapine 100 MG TAB PO SCH (16:39)
[2022-02-10] MEDS: QUEtiapine 200 MG TAB PO SCH (20:26)
[2022-02-10 21:09] VITALS: RESP 16
[2022-02-11] MEDS: NON FORMULARY DRUG (Brivaracetam [Briviact] 50 MG Tablet) PO SCH (05:13)
[2022-02-11] MEDS: DOCUSATE 100 MG CAP PO SCH (05:14)
[2022-02-11] MEDS: LACOSAMIDE 50 MG TABLET PO SCH (05:14)
[2022-02-11] MEDS: LACOSAMIDE 150 MG TABLET PO SCH (05:14)
[2022-02-11] MEDS: PRENATAL VIT-IRON-FOLIC ACID 1 EACH TABLET PO SCH (05:14)
[2022-02-11] MEDS: ESCITALOPRAM 20 MG TAB PO SCH (05:14)
[2022-02-11] MEDS: LORATADINE 10 MG TAB PO SCH (05:14)
[2022-02-11] MEDS: CALCIUM CARB-VIT D 500 MG-5 MCG TAB PO SCH (05:14)
[2022-02-11] MEDS: PSYLLIUM HUSK 100% 6 GM PACKET PO SCH (05:14)
[2022-02-11] MEDS: DIVALPROEX ER 500 MG TAB.ER.24H PO SCH (05:14)
--- NOTE | 2022-02-11 11:38 | P.DS ---
Providers Date of admission: 02/05/22 18:41 Attending physician: Tee Quinn Consults: 02/05/22 17:28 Consult Physician Routine Consulting Provider: Jonas Patel Consult Reason/Comments: hyponatremia Do you want consulting provider notified?: Yes Primary care physician: Ochoa Funes [facility] Course: Final Diagnosis Hyponatremia hypovolemic, possible from medication effect and poor oral intake, improved Bronchitis, resolved, lungs are clear, cough improved Nondisplaced fracture right great toe has been taped and foot in cast boot History cerebral palsy Intellectual delay Seizure disorder History urinary incontinence Full Code Discharge Disposition Patient stable for discharge to rehab for strengthening and plan to return to [facility]. She presented to sodium level of 116 it is now 132. Nephrology recommending to hold desmopressin repeat sodium level in 1-2 days and follow up outpatient in 1 week. Otherwise, follow up orthopedic for right great toe nondisplaced fracture, pain management and bowel regimine on discharge. One more day of oral azithromycin on discharge. Patient is on lexapro, which in combination with azithromycin risk for QT prolongation, QT interval reviewed; 397. Hospital Course This is a 51 year old patient with past medical history of cerebral palsy, intellectual delay, seizure disorder, and urinary incontinence. Patient presents to the hospital with concerns for right great toe swelling and bruising. Per patient had stubbed her toe does not no one she is complaining of pain of the right great toe. Her toe was taped and foot placed in cast boot. She will be discharged on pain managment and follow up with Dr Eason outpatient. Patient also presents with cough, pleuritic chest pain and shortness of breath with coughing. She received albuterol nebulized and is on day 2 of 3 of oral azithromycin. Symptoms have resolved, there is no shortness of breath, there is no wheezing noted, and she denies cough. Denies nausea vomiting diarrhea. No fever noted. Denies dysuria, denies abdominal pain, subprapubic pain. Home medications include Briviact, Vimpat, Lexapro, Seroquel, Depakote. She is also on Claritin, desmopressin. Vital showing 97.5, heart rate 77, blood pressure 111/52, 90% room air on admission. Patient received IV hydration in the EC and consult was placed to nephrology for hyponatremia. Her sodium had increased from 119 up to 130 while in the EC and had received IV fluids with normal saline. Nephrology evaluated the patient and she was started on D5 and received desmopressin IV. Sodium then dropped into the 120s and she was placed on fluid restriction. Sodium has now improved to 132 and oral desmopressin will be placed on hold for discharge. Other diagnostics Covid / Influenza A / Influenza B negative Urine showing cloudy urine, small blood, moderate luekocyte esterase, few bacteria. Urine random sodium <20. Chest xray showing no acute pulmonary abnormality Foot xray suspected nondisplaced transverse fracture of proximal metaphysis of the first proximal phalanx. There is also severe hallux vagus, diffuse osteopenia. EKG completed showing sinus rhythm heart rate 77, QT interval 397 Procalcitonin 0.06 02/11/2022 Patient evaluated today, she is up in the chair, she has been working with PT and will discharge to subacute rehab. Hold desmopressin and follow up sodium. Vitals today 107/65, 93% room air, afebrile, heart rate 61. Sodium 132, potassium 4.6, magnesium 1.9, calcium 8.5. She denies chest pain, shortness of breath. Denies nausea, vomiting, diarrhea. Bowels are moving. She is incontinent of urine which is baseline. Mentation at baseline as well. She complains of mild pain to right great toe which today has improved, receiving norco on bowel regimen. Lungs are clear, S1 S2 auscultated. Abdomen is soft and nontender. No peripheral edema. Follow up and discharge instructions as above. Continue fluid restriction. Please see medication reconciliation for a list of current medication. Thank you for allowing us to participate in the care of this patient. The impression and plan of care has been dictated by Sabra Rivas Nurse Practitioner as directed. Dr. Tanner MD I have performed a history and physical examination and medical decision making of this patient, discussed the same with the dictator, and agree with the dictators assessment and plan as written, documented as a scribe. Based on total visit time, I have performed more than 50% of this visit. Patient Condition at Discharge: Stable Plan - Discharge Summary Discharge Rx Participant: No New Discharge Prescriptions: New Albuterol Nebulized [Ventolin Nebulized] 2.5 mg INHALATION RT-QID PRN ml PRN Reason: Shortness Of Breath Or Wheezing Azithromycin [Zithromax] 500 mg PO DAILY 1 Days #1 tab HYDROcodone/APAP 7.5-325MG [[place] 7.5-325] 1 tab PO Q4H PRN 2 Days #8 tab PRN Reason: Pain Continue Loratadine 10 mg PO DAILY@0600 Escitalopram [Lexapro] 20 mg PO DAILY@0600 Docusate [Colace] 100 mg PO BID@0600,1700 Brivaracetam [Briviact] 50 mg PO DAILY@0600 QUEtiapine FUMARATE [SEROquel] 200 mg PO HS@1999 Reo-Gchz-Dwike Acid [-U Capsule (formulary)] 1 cap PO DAILY@0600 Calcium Carbonate/Vitamin D3 [Calcium 600-Vit D3 5 Mcg (200 Iu)] 1 tab PO DAILY@0600 QUEtiapine [SEROquel] 100 mg PO DAILY@1600 Divalproex ER [Depakote ER] 500 mg PO BID@06,1999 Psyllium Husk [Metamucil] 0.4 gm PO DAILY@06 Lacosamide [Vimpat] 200 mg PO BID@0600,1900 #4 tab Discontinued Desmopressin Acetate 0.2 mg PO DAILY@1700 Discharge Medication List Brivaracetam [Briviact] 50 mg PO DAILY@59902/05/22 [History] Calcium Carbonate/Vitamin D3 [Calcium 600-Vit D3 5 Mcg (200 Iu)] 1 tab PO DAILY@0602/05/22 [History] Divalproex ER [Depakote ER] 500 mg PO BID@06,199902/05/22 [History] Docusate [Colace] 100 mg PO BID@0600,1700 02/05/22 [History] Escitalopram [Lexapro] 20 mg PO DAILY@59902/05/22 [History] Loratadine 10 mg PO DAILY@59902/05/22 [History] Elf-Dfri-Jmgvw Acid [-U Capsule (formulary)] 1 cap PO DAILY@0602/05/22 [History] Psyllium Husk [Metamucil] 0.4 gm PO DAILY@59902/05/22 [History] QUEtiapine FUMARATE [SEROquel] 200 mg PO HS@2000 02/05/22 [History] QUEtiapine [SEROquel] 100 mg PO DAILY@1600 02/05/22 [History] Albuterol Nebulized [Ventolin Nebulized] 2.5 mg INHALATION RT-QID PRN ml 02/08/22 [Rx] Azithromycin [Zithromax] 500 mg PO DAILY 1 Days #1 tab 02/08/22 [Rx] HYDROcodone/APAP 7.5-325MG [[place] 7.5-325] 1 tab PO Q4H PRN 2 Days #8 tab 02/08/22 [Rx] Lacosamide [Vimpat] 200 mg PO BID@0600,1900 #4 tab 02/08/22 [Rx] Follow up Appointment(s)/Referral(s): Ochoa Funes DO [Primary Care Provider] - 1-2 days Jonas Patel DO [STAFF PHYSICIAN] - 1 Week Aaron Kent MD [Medical Doctor] - 1-2 days Ambulatory/Diagnostic Orders: Basic Metabolic Panel [LAB.AMB] Time Frame: 2 Days, Location: None Selected Activity/Diet/Wound Care/Special Instructions: Continue to hold desmopressin Repeat labs in 2-3 to monitor sodium level Continue with Fluid restriction 40 to 45 oz (1200 to 1350 mls) per 24 hours Follow up with Dr Patel in 1 week Dry gauze to scab on our right great toe Follow up with orthopedics outpatient Continue with taping and boot for right great toe fracture Continue with pain management Discharge Disposition: TRANSFER TO SNF/ECF
[2022-02-11 12:18] VITALS: BP 117/74; PULSE 74; TEMP 97.8
--- NOTE | 2022-02-11 12:46 | P.PN ---
Subjective Patient is seen for follow-up for hyponatremia. Sodium level today is 134. No significant complaints Patient is tolerating oral intake Objective - Vital Signs Vital signs: Vital Signs Temp 97.8 F 02/11/22 12:17 Pulse 74 02/11/22 12:17 Resp 16 02/11/22 12:17 BP 117/74 02/11/22 12:17 Pulse Ox 98 02/11/22 12:17 FiO2 Intake & Output 02/10/22 02/11/22 02/11/22 18:59 06:59 18:59 Intake Total 476 1180 Balance 476 1180 Weight 69.2 kg Intake: Oral 476 1180 Other: Voiding Method Diaper Diaper Diaper Incontinent Incontinent Incontinent # Voids 1 2 - Exam Awake, comfortable, not in any acute distress Patient appears euvolemic Lungs are clear Heart sounds are heard Abdomen is soft nontender [place] no edema noted - Labs CBC & Chem 7: 02/05/22 16:18 02/11/22 10:59 Labs: Abnormal Lab Results - Last 24 Hours (Table) 02/11/22 Range/Units 10:59 Sodium 134 L (137-145) mmol/L Assessment and Plan Assessment: 1. Hypovolemic hyponatremia on initial admission with rapid correction with saline. Currently maintained on fluid restriction. Increase protein intake has been encouraged. Serum sodium is up to 134. Patient can be discharged from nephrology standpoint 2. Cerebral palsy 3. Seizure disorder Plan: Encourage increased oral intake Patient can be discharged from nephrology standpoint. Monitor serum sodium as outpatient in 3-4 days
== END 2022-02-11 14:06 | DRG 641 ==
LOC: EC 14:34 → 3SCARD 18:41 → 5NMEDONC 02-06 09:40
PROVIDERS: ADMIT Hospitalist; ATTEND Hospitalist
DX: E87.1 Hypo-osmolality and hyponatremia (principal); G40.909 Epilepsy, unspecified, not intractable, without status epilepticus; F79 Unspecified intellectual disabilities; E86.1 Hypovolemia; F32.A Depression, unspecified; G80.9 Cerebral palsy, unspecified; J40 Bronchitis, not specified as acute or chronic; Q66.89 Other specified congenital deformities of feet; W22.03XA Walked into furniture, initial encounter; R32 Unspecified urinary incontinence; S92.414A Nondisplaced fracture of proximal phalanx of right great toe, initial encounter for closed fracture; W22.8XXA Striking against or struck by other objects, initial encounter; Z79.899 Other long term (current) drug therapy; Z20.822 Contact with and (suspected) exposure to COVID-19; Z28.310 Unvaccinated for COVID-19; Z28.21 Immunization not carried out because of patient refusal; Z91.02 Food additives allergy status
CPT/HCPCS: 36415; 71046; 80048; 80053; 81001; 82570; 83735; 83880; 83935; 84145; 84156; 84295; 84300; 84443; 84484; 85025; 87502; 87635; 93005; 94640; 96360; 99285

== ENCOUNTER 2022-06-02 14:43 | Inpatient (IN) | payer MEDICARE, OTHER ==
[2022-06-02] MEDS ORDERED: SODIUM CHLORIDE 0.9% 1,000 ML IV STA ×2 (14:51→16:51)
--- NOTE | 2022-06-02 15:01 | ED ---
Seizure HPI - General Chief Complaint: Seizure Stated Complaint: Seizure Time Seen by Provider: 06/02/22 14:48 Source: patient, EMS Mode of arrival: EMS Limitations: no limitations - History of Present Illness Initial Comments: This is a 52-year-old female with a past medical history of cerebral palsy and seizure disorder who presents to the emergency department for a possible seizure. The patient was in her [facility] and she was in bed resting comfo rtably. Someone from the [facility] walked by, and noticed that her arms were flexed and she was shaking vigorously in bed. She may have been somewhat confused after the event, however they are not positive. The patient is alert and oriented 2 at baseline. She believes that she had a seizure and states that she was confused afterwards. Also states that she feels ill but is unable to describe her symptoms. I spoke with the staff at her [facility], who states that she had not had a seizure for approximately one year before the one today. Seizures are not very common for her in general. Denies any fevers, chills, sore throat, cough, dyspnea, chest pain, palpitations, abdominal pain, nausea, vomiting, diarrhea, back pain, or headaches. MD Complaint: possible seizure Description of Episode: tonic-clonic movement Duration of Episode: 3 -: minutes(s) Witnessed: yes - by other ([facility] staff) Trauma: No Seizure History: known seizure disorder Place: home - Related Data Home Medications Medication Instructions Recorded Confirmed Brivaracetam [Briviact] 50 mg PO DAILY@59902/05/22 02/05/22 Calcium Carbonate/Vitamin D3 1 tab PO DAILY@59902/05/22 02/05/22 [Calcium 600-Vit D3 5 Mcg (200 Iu)] Divalproex ER [Depakote ER] 500 mg PO BID@06,199902/05/22 02/05/22 Docusate [Colace] 100 mg PO BID@0600,1700 02/05/22 02/05/22 Escitalopram [Lexapro] 20 mg PO DAILY@59902/05/22 02/05/22 Loratadine 10 mg PO DAILY@59902/05/22 02/05/22 Fpc-Hwgo-Fhlws Acid 1 cap PO DAILY@59902/05/22 02/05/22 [-U Capsule (formulary)] Psyllium Husk [Metamucil] 0.4 gm PO DAILY@0600 02/05/22 02/05/22 QUEtiapine FUMARATE [SEROquel] 200 mg PO HS@2000 02/05/22 02/05/22 QUEtiapine [SEROquel] 100 mg PO DAILY@1600 02/05/22 02/05/22 Previous Rx's Medication Instructions Recorded Albuterol Nebulized [Ventolin 2.5 mg INHALATION RT-QID PRN ml 02/08/22 Nebulized] Azithromycin [Zithromax] 500 mg PO DAILY 1 Days #1 tab 02/08/22 HYDROcodone/APAP 7.5-325MG [Mutual 1 tab PO Q4H PRN 2 Days #8 tab 02/08/22 7.5-325] Lacosamide [Vimpat] 200 mg PO BID@0600,1900 #4 tab 02/08/22 Allergies Allergy/AdvReac Type Severity Reaction Status Date / Time chocolate flavor Allergy Unknown Verified 02/05/22 17:41 Review of Systems ROS Statement: Those systems with pertinent positive or pertinent negative responses have been documented in the HPI. ROS Other: All systems not noted in ROS Statement are negative. Past Medical History Past Medical History: Seizure Disorder Additional Past Medical History / Comment(s): Called [facility] to verify history: Cerebral Palsy, moderate intellectual delay, urinary incontince, swelling in legs is normal for patient, club feet History of Any Multi-Drug Resistant Organisms: Unobtainable Past Surgical History: Unable to Obtain Past Anesthesia/Blood Transfusion Reactions: No Reported Reaction Past Psychological History: Depression Smoking Status: Never smoker Past Alcohol Use History: None Reported Past Drug Use History: None Reported General Exam Limitations: no limitations General appearance: alert, in no apparent distress Head exam: Present: atraumatic, normocephalic, normal inspection Respiratory exam: Present: normal lung sounds bilaterally. Absent: respiratory distress, wheezes, rales, rhonchi, stridor Cardiovascular Exam: Present: regular rate, normal rhythm, normal heart sounds. Absent: systolic murmur, diastolic murmur, rubs, gallop, clicks GI/Abdominal exam: Present: soft, normal bowel sounds. Absent: distended, tenderness, guarding, rebound, rigid Neurological exam: Present: alert Skin exam: Present: warm, dry, intact, normal color. Absent: rash Course Vital Signs 06/02/22 06/02/22 14:47 14:50 Temperature 97.9 F Pulse Rate 85 Respiratory 18 Rate Blood Pressure 137/94 O2 Sat by Pulse 98 Oximetry Medical Decision Making - Medical Decision Making This is a 52-year-old female who presents to the emergency department for a possible seizure. Patient does have hyponatremia at 121, and given that she had a seizure, it is possible this was related to the hyponatremia because seizure events are so uncommon for her. She was also admitted 4 months ago for a critical hyponatremia value. Lab work was otherwise nonactionable and her valproic acid was found to be in therapeutic range. She was given a liter bolus of normal saline in the emergency department and started on 100 mL of normal saline an hour. This appears to be a euvolemic hyponatremia. She has no history of congestive heart failure and is exhibiting no respiratory distress or signs of lower extremity edema. The patient's [facility] denies any excessive water intake. Additional laboratory studies ordered for the medicine team to follow up on, including TSH, uric acid, and cortisol. Patient will be admitted for management of hyponatremia. This case was discussed in detail with the attending ED physician. Presentation, findings, and treatment plan discussed in detail as well. - Lab Data Result diagrams: 06/02/22 15:08 06/02/22 15:08 Lab Results 06/02/22 06/02/22 06/02/22 Range/Units 15:08 15:08 15:08 WBC 5.4 (3.8-10.6) k/uL RBC 4.07 (3.80-5.40) m/uL Hgb 13.0 (11.4-16.0) gm/dL Hct 38.9 (34.0-46.0) % MCV 95.5 (80.0-100.0) fL MCH 32.0 (25.0-35.0) pg MCHC 33.5 (31.0-37.0) g/dL RDW 12.1 (11.5-15.5) % Plt Count 171 (150-450) k/uL MPV 7.5 Neutrophils % 60 % Lymphocytes % 26 % Monocytes % 10 % Eosinophils % 1 % Basophils % 0 % Neutrophils # 3.2 (1.3-7.7) k/uL Lymphocytes # 1.4 (1.0-4.8) k/uL Monocytes # 0.5 (0-1.0) k/uL Eosinophils # 0.1 (0-0.7) k/uL Basophils # 0.0 (0-0.2) k/uL Sodium 121 L (137-145) mmol/L Potassium 4.8 (3.5-5.1) mmol/L Chloride 85 L (98-107) mmol/L Carbon Dioxide 28 (22-30) mmol/L Anion Gap 8 mmol/L BUN 16 (7-17) mg/dL Creatinine 0.63 (0.52-1.04) mg/dL Est GFR (CKD-EPI)AfAm >90 (>60 ml/min/1.73 sqM) Est GFR (CKD-EPI)NonAf >90 (>60 ml/min/1.73 sqM) Glucose 88 (74-99) mg/dL Calcium 8.7 (8.4-10.2) mg/dL Magnesium 1.6 (1.6-2.3) mg/dL Total Bilirubin 0.3 (0.2-1.3) mg/dL AST 25 (14-36) U/L ALT 12 (4-34) U/L Alkaline Phosphatase 61 (38-126) U/L Total Protein 6.5 (6.3-8.2) g/dL Albumin 3.7 (3.5-5.0) g/dL Valproic Acid 79.8 ug/mL Coronavirus (PCR) Not Detected (Not Detectd) - EKG Data EKG Comments: Sinus rhythm. Normal axis. Ventricular rate 78 bpm, CT interval 168 ms, QRS duration 70 ms, QTC 388 ms. Disposition Clinical Impression: Hyponatremia, Seizure Disposition: ADMITTED IP TO THIS HOSP Referrals: Ochoa Funes DO [Primary Care Provider] - 1-2 days
[2022-06-02 15:23] LABS: Basophils % (A) 0 %; Eosinophils # (A) 0.1 k/uL (0-0.7); Eosinophils % (A) 1 %; HCT 38.9 % (34.0-46.0); Lymphocytes # (A) 1.4 k/uL (1.0-4.8); Lymphocytes % (A) 26 %; MCHC 33.5 g/dL (31.0-37.0); MCV 95.5 fL (80.0-100.0); Mean Platelet Volume 7.5; Monocytes # (A) 0.5 k/uL (0-1.0); Monocytes % (A) 10 %; Neutrophils # (A) 3.2 k/uL (1.3-7.7); Neutrophils % (A) 60 %; Platelet Count 171 k/uL (150-450); RBC 4.07 m/uL (3.80-5.40); RDW 12.1 % (11.5-15.5); WBC 5.4 k/uL (3.8-10.6)
[2022-06-02 15:33] LABS: ALT 12 U/L (4-34); AST 25 U/L (14-36); African American GFR (CKD) >90 (>60 ml/min/1.73 sqM); Albumin 3.7 g/dL (3.5-5.0); Alkaline Phosphatase 61 U/L (38-126); Anion Gap 8 mmol/L; Blood Urea Nitrogen 16 mg/dL (7-17); Calcium 8.7 mg/dL (8.4-10.2); Carbon Dioxide 28 mmol/L (22-30); Chloride 85 mmol/L (98-107); Glucose 88 mg/dL (74-99); Magnesium 1.6 mg/dL (1.6-2.3); Non-African American GFR(CKD) >90 (>60 ml/min/1.73 sqM); Potassium 4.8 mmol/L (3.5-5.1); Sodium 121 mmol/L (137-145); Total Bilirubin 0.3 mg/dL (0.2-1.3); Total Protein 6.5 g/dL (6.3-8.2)
[2022-06-02 15:38] LABS: Valproic Acid (Depakene) 79.8 ug/mL
[2022-06-02] MEDS ORDERED: KETOROLAC 15 MG/ML 1 ML VIAL IVP PRN (17:44)
[2022-06-02] MEDS ORDERED: ACETAMINOPHEN TAB 325 MG TAB PO PRN (17:44)
[2022-06-02] MEDS ORDERED: ONDANSETRON 4 MG/2 ML VIAL IVP PRN (17:44)
[2022-06-02] MEDS ORDERED: NALOXONE 0.4 MG/ML 1 ML VIAL IV PRN (17:44)
[2022-06-02 18:20] LABS: Uric Acid 2.6 mg/dL (3.7-7.4)
[2022-06-03 00:09] LABS: Appearance,Urine Clear (Clear); Bilirubin,Urine Negative (Negative); Blood,Urine Negative (Negative); Color,Urine Colorless; Glucose,Urine (UA) Negative (Negative); Ketones,Urine Negative (Negative); Leukocyte Esterase,Urine Negative (Negative); Nitrite,Urine Negative (Negative); PH, Urine 7.5 (5.0-8.0); Protein,Urine Negative (Negative); Specific Gravity,Urine 1.003 (1.001-1.035); Urobilinogen,Urine <2.0 mg/dL (<2.0)
[2022-06-03 00:23] LABS: Amphetamine Screen,Urine Not Detected (NotDetected); Barbiturate Screen,Urine Not Detected (NotDetected); Benzodiazepines Screen,Urine Not Detected (NotDetected); Cocaine Screen,Urine Not Detected (NotDetected); Methadone Screen, Urine Not Detected (NotDetected); Opiate Screen,Urine Not Detected (NotDetected); Oxycodone Screen, Urine Not Detected (NotDetected); Phencyclidine Screen,Urine Not Detected (NotDetected); Tricyclic Antidepressant,Urine Not Detected (NotDetected); Urn Cannabinoid Scrn Not Detected (NotDetected)
[2022-06-03] MEDS: NON FORMULARY DRUG (Brivaracetam [Briviact] 50 MG Tablet) PO SCH (06:08)
[2022-06-03] MEDS: PSYLLIUM HUSK 100% 6 GM PACKET PO SCH (06:16)
[2022-06-03] MEDS: TRIAMTERENE-HCTZ 37.5-25MG 1 EACH CAP PO SCH (06:16)
[2022-06-03] MEDS: DESMOPRESSIN 0.2 MG TAB PO SCH (06:16)
[2022-06-03] MEDS: DOCUSATE 100 MG CAP PO SCH ×2 (06:16→17:44)
[2022-06-03] MEDS: LORATADINE 10 MG TAB PO SCH (06:16)
[2022-06-03] MEDS: CALCIUM CARB-VIT D 500 MG-5 MCG TAB PO SCH (06:16)
[2022-06-03] MEDS: PRENATAL VIT-IRON-FOLIC ACID 1 EACH TABLET PO SCH (06:16)
[2022-06-03] MEDS: LACOSAMIDE 50 MG TABLET PO SCH ×2 (06:16→19:27)
[2022-06-03] MEDS: DIVALPROEX ER 500 MG TAB.ER.24H PO SCH ×2 (06:16→19:28)
[2022-06-03] MEDS: ESCITALOPRAM 20 MG TAB PO SCH (06:16)
[2022-06-03 07:46] LABS: Basophils % (A) 1 %; Eosinophils # (A) 0.1 k/uL (0-0.7); Eosinophils % (A) 1 %; HCT 40.3 % (34.0-46.0); Lymphocytes # (A) 1.5 k/uL (1.0-4.8); Lymphocytes % (A) 26 %; MCH 31.8 pg (25.0-35.0); MCHC 32.3 g/dL (31.0-37.0); MCV 98.4 fL (80.0-100.0); Mean Platelet Volume 7.8; Monocytes # (A) 0.6 k/uL (0-1.0); Monocytes % (A) 11 %; Neutrophils # (A) 3.5 k/uL (1.3-7.7); Neutrophils % (A) 60 %; Platelet Count 184 k/uL (150-450); RDW 12.2 % (11.5-15.5); WBC 5.9 k/uL (3.8-10.6)
[2022-06-03 07:58] LABS: African American GFR (CKD) >90 (>60 ml/min/1.73 sqM); Anion Gap 7 mmol/L; Blood Urea Nitrogen 12 mg/dL (7-17); Calcium 8.4 mg/dL (8.4-10.2); Carbon Dioxide 27 mmol/L (22-30); Chloride 96 mmol/L (98-107); Glucose 90 mg/dL (74-99); Non-African American GFR(CKD) >90 (>60 ml/min/1.73 sqM); Potassium 4.2 mmol/L (3.5-5.1); Sodium 130 mmol/L (137-145)
[2022-06-03] MEDS: FOLIC ACID 1 MG TAB PO SCH (08:55)
[2022-06-03] MEDS: FERROUS SULFATE 325 MG TAB PO SCH (08:55)
[2022-06-03] MEDS ORDERED: ALBUTEROL NEBULIZED 2.5 MG/3 ML INHALATION PRN (12:00)
--- NOTE | 2022-06-03 13:07 | CT ---
EXAMINATION TYPE: CT brain wo con CT DLP: 1155.4 mGycm, Automated exposure control for dose reduction was used. DATE OF EXAM: 06/03/2022 12:58 PM COMPARISON: 07/27/2020. CLINICAL INDICATION:Female, 52 years old with history of seizure, TECHNIQUE: Brain: Axial CT images of the brain were obtained with coronal and sagittal reformats created and rev iewed. Contrast used: None. Oral contrast used: None. FINDINGS: Brain: Extra-axial spaces: No abnormal extra-axial fluid collections. Ventricular system: Similar posterior approach ventriculostomy catheters. Tips are in stable position . No evidence for interval change in ventricular size. 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 No acute intraparenchymal hemorrhage or mass effect. The zaman-white junction is well differentiated. Cerebellum: Unremarkable. Mass effect: No evidence of midline shift. Intracranial vasculature: unremarkable Soft tissues: Normal. Calvarium/osseous structures: No depressed skull fracture. Postsurgical changes from ventriculostomy catheters. Paranasal sinuses and mastoid air cells: Mild scattered paranasal sinus disease. Visualized orbits: Orbital contents are intact. IMPRESSION: 1. No acute intracranial process. 2. Stable ventriculostomy catheters without evidence for hydrocephalus. 3. Absence of the corpus callosum.
[2022-06-03] MEDS ORDERED: QUEtiapine 100 MG TAB PO SCH (16:00)
[2022-06-03] MEDS ORDERED: QUEtiapine 200 MG TAB PO SCH (20:00)
[2022-06-03] MEDS ORDERED: DESMOPRESSIN 0.2 MG TAB PO SCH (20:00)
--- NOTE | 2022-06-04 01:18 | HP ---
HISTORY AND PHYSICAL CHIEF COMPLAINT: Seizures. HISTORY OF PRESENT ILLNESS: This 52-year-old woman, who was admitted with seizure disorder with a past medical history of seizure disorder, cerebral palsy, and multiple medical issues, living in a [facility], was found to have seizures. The patient has hyponatremia. The patient was admitted for further evaluation and treatment. Neurology evaluation in progress. Sodium was 121, currently at 130. There is no history of fever, rigors, or chills. PAST MEDICAL HISTORY: Reviewed and include seizure disorder, cerebral palsy. HOME MEDICATIONS: Again, reviewed and include Dyazide, dose and rest of the medication noted. ALLERGIES: Chocolate flavor. Family history, social history, review of systems could not be taken because of the patient's baseline mental status. PHYSICAL EXAMINATION: VITAL SIGNS: Pulse 83, blood pressure 110/64, respirations 17. HEENT: Conjunctivae normal. NECK: No JVD. CARDIOVASCULAR: S1, S2. RESPIRATIONS: Breath sounds diminished at the bases. A few scattered rhonchi. ABDOMEN: Soft, nontender. LEGS: No edema. NERVOUS SYSTEM: Moves all 4 limbs. No focal deficit. Disconjugation of eyes present. SKIN: No ulcer, rash, bleeding. JOINTS: No active deforming arthropathy. LABORATORY DATA: Reviewed. Sodium 130. ASSESSMENT: 1. Acute seizure disorder. 2. Hyponatremia. 3. History of cerebral palsy. 4. Multiple medical issues. RECOMMENDATIONS: In this 52-year-old woman, who presented with multiple medical problems, we will monitor the patient closely. Seizure precautions, otherwise CT scan, Neurology consultation. UA and UA drug screen, both are normal. Valproic acid level 17.8. Prognosis guarded. Further recommendations to follow. COVID-19 is negative. See orders for details. MMODL / IJN: [id number] /
[2022-06-04] MEDS: NON FORMULARY DRUG (Brivaracetam [Briviact] 50 MG Tablet) PO SCH (05:59)
[2022-06-04] MEDS: CALCIUM CARB-VIT D 500 MG-5 MCG TAB PO SCH (06:07)
[2022-06-04] MEDS: DESMOPRESSIN 0.2 MG TAB PO SCH (06:07)
[2022-06-04] MEDS: DOCUSATE 100 MG CAP PO SCH (06:07)
[2022-06-04] MEDS: ESCITALOPRAM 20 MG TAB PO SCH (06:07)
[2022-06-04] MEDS: LACOSAMIDE 50 MG TABLET PO SCH (06:07)
[2022-06-04] MEDS: DIVALPROEX ER 500 MG TAB.ER.24H PO SCH (06:07)
[2022-06-04] MEDS: PRENATAL VIT-IRON-FOLIC ACID 1 EACH TABLET PO SCH (06:08)
[2022-06-04] MEDS: TRIAMTERENE-HCTZ 37.5-25MG 1 EACH CAP PO SCH (06:08)
[2022-06-04] MEDS: LORATADINE 10 MG TAB PO SCH (06:08)
[2022-06-04] MEDS: PSYLLIUM HUSK 100% 6 GM PACKET PO SCH (06:08)
[2022-06-04 08:12] VITALS: TEMP 97.5
[2022-06-04 08:36] LABS: Basophils % (A) 1 %; Eosinophils % (A) 1 %; HCT 38.8 % (34.0-46.0); HGB 12.5 gm/dL (11.4-16.0); Lymphocytes # (A) 1.3 k/uL (1.0-4.8); Lymphocytes % (A) 32 %; MCHC 32.2 g/dL (31.0-37.0); MCV 99.5 fL (80.0-100.0); Mean Platelet Volume 8.5; Monocytes # (A) 0.5 k/uL (0-1.0); Monocytes % (A) 11 %; Neutrophils # (A) 2.2 k/uL (1.3-7.7); Neutrophils % (A) 53 %; Platelet Count 158 k/uL (150-450); RDW 12.2 % (11.5-15.5); WBC 4.1 k/uL (3.8-10.6)
[2022-06-04 08:50] LABS: African American GFR (CKD) >90 (>60 ml/min/1.73 sqM); Anion Gap 10 mmol/L; Blood Urea Nitrogen 11 mg/dL (7-17); Carbon Dioxide 23 mmol/L (22-30); Chloride 98 mmol/L (98-107); Glucose 100 mg/dL (74-99); Non-African American GFR(CKD) >90 (>60 ml/min/1.73 sqM); Potassium 3.5 mmol/L (3.5-5.1); Sodium 131 mmol/L (137-145)
--- NOTE | 2022-06-04 10:18 | P.CNNES ---
History of Present Illness Consult date: 06/04/22 Requesting physician: Tee Quinn Reason for Consult: Seizure History of Present Illness: Patient is a 52-year-old female came to the hospital by ambulance yesterday at 2:43 PM. EMS flow sheet not available in the chart. Patient has history of seizure disorder, cerebral palsy, also is mentally challenged. Per electronic records, patient was brought to the ER for possible seizure. The patient was in her detention and she was in her bed resting comfortably. Someone from the detention more by, and noticed that her arms are flexed and she was shaking vigorously in bed. She may have been somewhat confused after the event although they were not positive. Patient is alert and oriented [address] [facility] report at the detention, patient has not had a seizure for approximately one year before this one. Seizures are not very common for her in general. Vital signs arrival blood pressure 137/94, pulse rate 85 temperature 97.9. Blood test shows normal CBC, sodium 121, potassium 4.8, hemoglobin 16, creatinine 0.63. Hepatic panel is normal, TSH is normal. UA negative, urine drug screen negative. Depakote level therapeutic 79.8. Coronal virus PCR negative. CT head showed no acute intracranial process. Stable ventriculostomy catheters without evidence for hydrocephalus. Absence of the corpus callosum. I personally reviewed CT head, and agree with the findings. Patient at present tells me "They took me to the CT room and my brain is fine". Patient does not know if she has any history of seizure disorder. She admits to living in a detention. Patient states her dad is in [place], and regarding her mother patient states "I forgot". Patient's home medications include Lexapro 20 mg, Briviact 50 mg daily, Seroquel 200 mg at bedtime, vitamin, calcium, Seroquel 100 mg daily, Depakote 500 mg twice a day, Vimpat 200 mg twice a day, triamterene/HCTZ, folic acid 0.4 mg daily, ferrous sulfate, DDAVP. Review of Systems Constitutional: Denies chills, Denies fever Eyes: denies blurred vision, denies pain Ears, nose, mouth and throat: Denies headache, Denies sore throat Cardiovascular: Denies chest pain, Denies shortness of breath Respiratory: Denies cough Gastrointestinal: Denies abdominal pain, Denies diarrhea, Denies nausea, Denies vomiting Genitourinary: Denies dysuria, Denies hematuria Musculoskeletal: Denies myalgias Integumentary: Denies pruritus, Denies rash Neurological: Reports as per HPI Endocrine: Denies fatigue, Denies weight change Past Medical History Past Medical History: Seizure Disorder Additional Past Medical History / Comment(s): Called detention to verify history: Cerebral Palsy, moderate intellectual delay, urinary incontince, swelling in legs is normal for patient, club feet History of Any Multi-Drug Resistant Organisms: Unobtainable Past Surgical History: Unable to Obtain Past Anesthesia/Blood Transfusion Reactions: No Reported Reaction Past Psychological History: Depression Smoking Status: Never smoker Past Alcohol Use History: None Reported Past Drug Use History: None Reported Medications and Allergies Home Medications Medication Instructions Recorded Confirmed Type Brivaracetam [Briviact] 50 mg PO DAILY@59902/05/22 06/02/22 History Calcium Carbonate/Vitamin D3 1 tab PO DAILY@59902/05/22 06/02/22 History [Calcium 600-Vit D3 5 Mcg (200 Iu)] Divalproex ER [Depakote ER] 500 mg PO BID@0600,199902/05/22 06/02/22 History Docusate [Colace] 100 mg PO BID@0600,1700 02/05/22 06/02/22 History Escitalopram [Lexapro] 20 mg PO DAILY@59902/05/22 06/02/22 History Loratadine 10 mg PO DAILY@59902/05/22 06/02/22 History Auj-Tojs-Pnphn Acid 1 cap PO DAILY@59902/05/22 06/02/22 History [-U Capsule (formulary)] Psyllium Husk [Metamucil] 0.4 gm PO DAILY@59902/05/22 06/02/22 History QUEtiapine FUMARATE [SEROquel] 200 mg PO HS@199902/05/22 06/02/22 History QUEtiapine [SEROquel] 100 mg PO DAILY@1600 02/05/22 06/02/22 History Albuterol Nebulized [Ventolin 2.5 mg INHALATION RT-QID PRN ml 02/08/22 06/02/22 Rx Nebulized] Lacosamide [Vimpat] 200 mg PO BID@0600,1900 #4 tab 02/08/22 06/02/22 Rx Desmopressin [Ddavp] 0.2 mg PO DAILY@0600 06/02/22 06/02/22 History Desmopressin [Ddavp] 0.4 mg PO HS@2000 06/02/22 06/02/22 History Ferrous Sulfate [Feosol] 325 mg PO DAILY@0800 06/02/22 06/02/22 History Folic Acid 0.4 mg PO DAILY@0800 06/02/22 06/02/22 History Mupirocin 2% Oint [Bactroban 2% 1 applic TOPICAL DAILY 06/02/22 06/02/22 History Oint] Triamterene-Hctz 37.5-25Mg 1 cap PO DAILY@0600 06/02/22 06/02/22 History [Dyazide 37.5-25 Capsule] Allergies Allergy/AdvReac Type Severity Reaction Status Date / Time chocolate flavor Allergy Unknown Verified 06/02/22 19:24 Physical Examination - Vital Signs Vital Signs: Vital Signs Temp Pulse Pulse Resp BP BP Pulse Ox 06/03/22 12:18 98.5 F 72 17 112/71 98 06/03/22 08:00 98.0 F 83 17 110/65 97 06/03/22 02:00 97.7 F 78 18 114/81 100 06/02/22 23:56 18 06/02/22 23:36 97.6 F 75 16 135/88 100 06/02/22 19:00 78 18 115/72 97 06/02/22 17:09 80 16 135/84 97 06/02/22 14:50 97.9 F 06/02/22 14:47 85 18 137/94 98 Intake and Output 06/02/22 06/03/22 06/03/22 22:59 06:59 14:59 Intake Total 236 Output Total 1050 500 Balance -1050 -264 Intake: Oral 236 Output: Urine 1050 500 Other: Voiding Method Diaper Diaper External Catheter External Catheter # Voids 2 Weight 68.039 kg Patient is a middle aged female, in no acute distress. Patient is very pleasant. Patient is alert awake. She knows her date of , and she states that she is in her "40s". She admits to living in a detention. Patient states her dad is in [place], and regarding her mother patient states "I forgot". Patient could not tell the current month or the year. She does not know what city she lives in although she knows that she is in [place]. Could not tell name of the current president. Speech and language functions are normal. No obvious a phasia or dysarthria. Attention, concentration intact and fund of knowledge is limited. On cranial nerve examination, pupils are equal, round and reacting to light, visual jones were very difficult to assess with her mentation. Patient has left eye adduction in the primary gaze. Otherwise extraocular muscles appears grossly intact. Face is symmetric, tongue protrudes to the midline. Palatal elevation and sensation normal, hearing and shoulder shrug normal, facial sensation normal. On muscle strength testing, there is no pronator drift and the strength symmetric bilaterally. Her deltoid is 5-4+, biceps 5, triceps 5, engine specialist 5, hip flexion 4 bilaterally. Her ankles are very stiff and probably weak likely from cerebral palsy. Patient did not cooperate well for ankle testing. Deep tendon reflexes are symmetric biceps 1+, brachioradialis 1+, knees 3, plantars are upgoing bilaterally. Sensory to touch is equal with no neglect on double simultaneous stimulation. Cerebellar function showed no ataxia for [id number] testing. Tone is slightly increased in the lower limbs and bulk of muscles normal. Gait deferred.. On general examination, there is no carotid bruit or murmur, S1-S2 audible. Chest is clear on consultation. Abdomen is soft nontender. No organomegaly, bowel sounds present. Peripheral pulses are present. No edema. Results - Laboratory Findings CBC and BMP: 06/04/22 08:25 06/04/22 08:25 Abnormal Lab Findings: Abnormal Labs 06/02/22 06/02/22 06/03/22 15:08 15:08 07:13 Sodium 121 L 130 L Chloride 85 L 96 L Uric Acid 2.6 L Assessment and Plan Assessment: * Breakthrough seizure, likely provoked due to hyponatremia * Seizure disorder * Cerebral palsy * moderate intellectual disability * Clubfeet Plan: * Patient's seizure was likely provoked due to hyponatremia. * Treatment of hyponatremia as per IM. * Continue same dose of seizure medications including Vimpat 200 mg twice a day, Depakote 500 mg twice a day and Briviact 50 mg daily. * No other neurological workup indicated. Neurologically clear, once cleared medically. * Thank you for the consult.
[2022-06-04] MEDS: FOLIC ACID 1 MG TAB PO SCH (10:31)
[2022-06-04] MEDS: FERROUS SULFATE 325 MG TAB PO SCH (10:31)
[2022-06-04 11:32] VITALS: BP 118/82; PULSE 81; RESP 18
--- NOTE | 2022-06-05 14:16 | DS ---
DISCHARGE SUMMARY FINAL DIAGNOSES: 1. Generalized tonic-clonic seizures, breakthrough seizures, possibly secondary to hyponatremia. 2. Hyponatremia. 3. History of cerebral palsy. 4. Multiple medical issues. DISCHARGE DISPOSITION: The patient will be discharged in stable condition, guarded prognosis. HISTORY OF PRESENT ILLNESS: This 52-year-old woman with past medical history of multiple medical problems, admitted with seizures. The patient's sodium was also low. Patient was treated symptomatically. Sodium improved to 131. Neurology saw the patient. Patient was discharged in stable condition, guarded prognosis. PHYSICAL EXAMINATION: VITAL SIGNS: Stable. CARDIAC: S1 and S2. ABDOMEN: Soft. NERVOUS SYSTEM: No focal deficit. DISCHARGE MEDICATIONS: Recommend resuming home medications. See medication reconciliation sheet for list of medications. Follow up with Dr. Ochoa Funes and Dr. Al, Neurology in outpatient setting. MAHOGANY / AYANA: [id number] /
== END 2022-06-04 14:15 | disposition home health service (06) | DRG 101 ==
LOC: EC 14:43 → 4SSUR 17:45 → 3SCARD 22:39
PROVIDERS: ADMIT Internal Medicine; ATTEND Internal Medicine
DX: G40.909 Epilepsy, unspecified, not intractable, without status epilepticus (principal); E87.1 Hypo-osmolality and hyponatremia; F71 Moderate intellectual disabilities; Z20.822 Contact with and (suspected) exposure to COVID-19; G80.9 Cerebral palsy, unspecified; F32.A Depression, unspecified; Q66.89 Other specified congenital deformities of feet; Z79.899 Other long term (current) drug therapy; Z91.018 Allergy to other foods
CPT/HCPCS: 36415; 70450; 80048; 80053; 80164; 80306; 81003; 82533; 83735; 83880; 84443; 84550; 85025; 87635; 93005; 96360; 96361; 99285

== ENCOUNTER 2022-07-04 07:02 | Inpatient (IN) | payer MEDICARE, OTHER ==
[2022-07-04 08:03] LABS: Basophils % (A) 1 %; Eosinophils % (A) 1 %; HGB 13.1 gm/dL (11.4-16.0); Lymphocytes % (A) 32 %; MCH 33.8 pg (25.0-35.0); MCHC 35.5 g/dL (31.0-37.0); MCV 95.3 fL (80.0-100.0); Mean Platelet Volume 7.8; Monocytes # (A) 0.4 k/uL (0-1.0); Monocytes % (A) 12 %; Neutrophils # (A) 1.6 k/uL (1.3-7.7); Neutrophils % (A) 52 %; Platelet Count 160 k/uL (150-450); RBC 3.89 m/uL (3.80-5.40); RDW 12.2 % (11.5-15.5)
[2022-07-04 08:17] LABS: ALT 12 U/L (4-34); AST 22 U/L (14-36); African American GFR (CKD) >90 (>60 ml/min/1.73 sqM); Albumin 3.3 g/dL (3.5-5.0); Alkaline Phosphatase 54 U/L (38-126); Anion Gap 8 mmol/L; Blood Urea Nitrogen 16 mg/dL (7-17); Carbon Dioxide 27 mmol/L (22-30); Chloride 86 mmol/L (98-107); Glucose 84 mg/dL (74-99); Magnesium 1.6 mg/dL (1.6-2.3); Non-African American GFR(CKD) >90 (>60 ml/min/1.73 sqM); Potassium 4.1 mmol/L (3.5-5.1); Sodium 121 mmol/L (137-145); Total Bilirubin 0.5 mg/dL (0.2-1.3); Total Protein 6.1 g/dL (6.3-8.2)
[2022-07-04 08:22] LABS: Valproic Acid (Depakene) 75.7 ug/mL
--- NOTE | 2022-07-04 08:25 | ED ---
General Adult HPI - General Chief complaint: Seizure Stated complaint: seizure Source: patient, EMS Mode of arrival: EMS Limitations: altered mental status - History of Present Illness Initial comments: This is a 52-year-old female who has a past medical history significant for s eizunicky. Patient comes in today because she had 2 seizures. EMS states that she had a second seizure lasting 30 seconds and she was postictal for about 3 minutes. Patient is on antiseizure medications but she is somewhat developmentally delayed and does not remember what they are. Patient denies any pain currently. Patient denies headache patient denies any numbness or weakness. Patient denies any chest pain or abdominal pain patient denies nausea vomiting diarrhea. Patient denies any recent fever chills or cough. - Related Data Home Medications Medication Instructions Recorded Confirmed Brivaracetam [Briviact] 50 mg PO DAILY@59902/05/22 06/02/22 Calcium Carbonate/Vitamin D3 1 tab PO DAILY@59902/05/22 06/02/22 [Calcium 600-Vit D3 5 Mcg (200 Iu)] Divalproex ER [Depakote ER] 500 mg PO BID@0600,199902/05/22 06/02/22 Docusate [Colace] 100 mg PO BID@0600,1700 02/05/22 06/02/22 Escitalopram [Lexapro] 20 mg PO DAILY@59902/05/22 06/02/22 Loratadine 10 mg PO DAILY@0602/05/22 06/02/22 Htr-Ogll-Weurc Acid 1 cap PO DAILY@59902/05/22 06/02/22 [-U Capsule (formulary)] Psyllium Husk [Metamucil] 0.4 gm PO DAILY@0602/05/22 06/02/22 QUEtiapine FUMARATE [SEROquel] 200 mg PO HS@199902/05/22 06/02/22 QUEtiapine [SEROquel] 100 mg PO DAILY@1600 02/05/22 06/02/22 Desmopressin [Ddavp] 0.2 mg PO DAILY@0600 06/02/22 06/02/22 Desmopressin [Ddavp] 0.4 mg PO HS@199906/02/22 06/02/22 Ferrous Sulfate [Feosol] 325 mg PO DAILY@0800 06/02/22 06/02/22 Folic Acid 0.4 mg PO DAILY@0800 06/02/22 06/02/22 Mupirocin 2% Oint [Bactroban 2% 1 applic TOPICAL DAILY 06/02/22 06/02/22 Oint] Triamterene-Hctz 37.5-25Mg 1 cap PO DAILY@0600 06/02/22 06/02/22 [Dyazide 37.5-25 Capsule] Previous Rx's Medication Instructions Recorded Albuterol Nebulized [Ventolin 2.5 mg INHALATION RT-QID PRN ml 02/08/22 Nebulized] Lacosamide [Vimpat] 200 mg PO BID@0600,1900 #4 tab 02/08/22 Allergies Allergy/AdvReac Type Severity Reaction Status Date / Time chocolate flavor Allergy Unknown Verified 07/04/22 07:20 Review of Systems ROS Statement: Those systems with pertinent positive or pertinent negative responses have been documented in the HPI. ROS Other: All systems not noted in ROS Statement are negative. Past Medical History Past Medical History: Seizure Disorder Additional Past Medical History / Comment(s): [facility] to verify history: Cerebral Palsy, moderate intellectual delay, urinary incontince, swelling in legs is normal for patient, club feet History of Any Multi-Drug Resistant Organisms: Unobtainable Past Surgical History: Unable to Obtain Past Anesthesia/Blood Transfusion Reactions: No Reported Reaction Past Psychological History: Depression Smoking Status: Never smoker Past Alcohol Use History: None Reported Past Drug Use History: None Reported General Exam - General Exam Comments Initial Comments: GENERAL: Patient is well-developed and well-nourished. Patient is nontoxic and well- hydrated and is in no acute distress. ENT: Neck is soft and supple. No significant lymphadenopathy is noted. Oropharynx is clear. Moist mucous membranes. Neck has full range of motion without eliciting any pain. EYES: The sclera were anicteric and conjunctiva were pink and moist. Extraocular movements were intact and pupils were equal round and reactive to light. Eyelids were unremarkable. PULMONARY: Unlabored respirations. Good breath sounds bilaterally. No audible rales rhonchi or wheezing was noted. CARDIOVASCULAR: There is a regular rate and rhythm without any murmurs gallops or rubs. ABDOMEN: Soft and nontender with normal bowel sounds. SKIN: Skin is clear with no lesions or rashes and otherwise unremarkable. NEUROLOGIC: Patient is alert and oriented 2. Cranial nerves II through XII are grossly intact. Motor and sensory are also intact. Normal speech, volume and content. Symmetrical smile. MUSCULOSKELETAL: Normal extremities with adequate strength and full range of motion. No lower extremity swelling or edema. No calf tenderness. LYMPHATICS: No significant lymphadenopathy is noted PSYCHIATRIC: Normal psychiatric evaluation. Limitations: no limitations Course Vital Signs 07/04/22 07:15 Temperature 98.6 F Pulse Rate 98 Respiratory 20 Rate Blood Pressure 119/72 O2 Sat by Pulse 97 Oximetry Medical Decision Making - Lab Data Result diagrams: 07/04/22 07:58 07/04/22 07:58 Lab Results 07/04/22 07/04/22 Range/Units 07:58 07:58 WBC 3.0 L (3.8-10.6) k/uL RBC 3.89 (3.80-5.40) m/uL Hgb 13.1 (11.4-16.0) gm/dL Hct 37.0 (34.0-46.0) % MCV 95.3 (80.0-100.0) fL MCH 33.8 (25.0-35.0) pg MCHC 35.5 (31.0-37.0) g/dL RDW 12.2 (11.5-15.5) % Plt Count 160 (150-450) k/uL MPV 7.8 Neutrophils % 52 % Lymphocytes % 32 % Monocytes % 12 % Eosinophils % 1 % Basophils % 1 % Neutrophils # 1.6 (1.3-7.7) k/uL Lymphocytes # 1.0 (1.0-4.8) k/uL Monocytes # 0.4 (0-1.0) k/uL Eosinophils # 0.0 (0-0.7) k/uL Basophils # 0.0 (0-0.2) k/uL Sodium 121 L (137-145) mmol/L Potassium 4.1 (3.5-5.1) mmol/L Chloride 86 L (98-107) mmol/L Carbon Dioxide 27 (22-30) mmol/L Anion Gap 8 mmol/L BUN 16 (7-17) mg/dL Creatinine 0.55 (0.52-1.04) mg/dL Est GFR (CKD-EPI)AfAm >90 (>60 ml/min/1.73 sqM) Est GFR (CKD-EPI)NonAf >90 (>60 ml/min/1.73 sqM) Glucose 84 (74-99) mg/dL Calcium 8.0 L (8.4-10.2) mg/dL Magnesium 1.6 (1.6-2.3) mg/dL Total Bilirubin 0.5 (0.2-1.3) mg/dL AST 22 (14-36) U/L ALT 12 (4-34) U/L Alkaline Phosphatase 54 (38-126) U/L Total Protein 6.1 L (6.3-8.2) g/dL Albumin 3.3 L (3.5-5.0) g/dL Valproic Acid 75.7 ug/mL Disposition Clinical Impression: Generalized seizure, Hyponatremia Disposition: ADMITTED IP TO THIS [facility] Instructions (If sedation given, give patient instructions): Seizure/Epilepsy Discharge Instructions & Follow-Up Referrals: Ochoa Funes DO [Primary Care Provider] - 1-2 days Time of Disposition: 08:42
[2022-07-04] MEDS ORDERED: SODIUM CHLORIDE 0.9% 500 ML 500 ML IV ONE (08:42)
[2022-07-04] MEDS ORDERED: SODIUM CHLORIDE 0.9% 1,000 ML IV SCH (08:45)
[2022-07-04] MEDS: QUEtiapine 100 MG TAB PO SCH (16:07)
[2022-07-04] MEDS: LACOSAMIDE 50 MG TABLET PO SCH (18:29)
[2022-07-04 19:22] LABS: African American GFR (CKD) >90 (>60 ml/min/1.73 sqM); Anion Gap 9 mmol/L; Blood Urea Nitrogen 12 mg/dL (7-17); Calcium 8.1 mg/dL (8.4-10.2); Carbon Dioxide 27 mmol/L (22-30); Chloride 93 mmol/L (98-107); Glucose 80 mg/dL (74-99); Non-African American GFR(CKD) >90 (>60 ml/min/1.73 sqM); Potassium 4.2 mmol/L (3.5-5.1); Sodium 129 mmol/L (137-145)
[2022-07-04] MEDS: HEPARIN SODIUM,PORCINE/PF 5,000 UNIT/0.5 ML SYRINGE SQ SCH (22:12)
[2022-07-04] MEDS: QUEtiapine 200 MG TAB PO SCH (22:12)
[2022-07-04] MEDS: DIVALPROEX ER 500 MG TAB.ER.24H PO SCH (22:12)
[2022-07-04] MEDS: DEXTROSE 5%-0.45% NACL 1,000 ML IV SCH (22:20)
[2022-07-04] MEDS: DESMOPRESSIN 0.2 MG TAB PO SCH (22:23)
[2022-07-04 23:06] LABS: Appearance,Urine Clear (Clear); Bacteria,Urine Occasional /hpf; Bilirubin,Urine Negative (Negative); Blood,Urine Trace (Negative); Color,Urine Colorless; Glucose,Urine (UA) Negative (Negative); Ketones,Urine Negative (Negative); Leukocyte Esterase,Urine Large (Negative); Nitrite,Urine Negative (Negative); Protein,Urine Negative (Negative); RBC,Urine <1 /hpf (0-5); Specific Gravity,Urine 1.003 (1.001-1.035); Squamous Epithelial Cell,Urine 1 /hpf (0-4); Urobilinogen,Urine <2.0 mg/dL (<2.0); WBC,Urine 33 /hpf (0-5)
[2022-07-05] MEDS: LACOSAMIDE 50 MG TABLET PO SCH ×2 (06:34→21:15)
[2022-07-05] MEDS: CALCIUM CARB-VIT D 500 MG-5 MCG TAB PO SCH (06:35)
[2022-07-05] MEDS: DIVALPROEX ER 500 MG TAB.ER.24H PO SCH ×2 (06:35→21:16)
[2022-07-05] MEDS: ESCITALOPRAM 20 MG TAB PO SCH (06:35)
[2022-07-05] MEDS: NON FORMULARY DRUG (Brivaracetam [Briviact] 50 MG Tablet) PO SCH (06:37)
[2022-07-05] MEDS: DESMOPRESSIN 0.2 MG TAB PO SCH ×2 (06:56→21:54)
[2022-07-05 09:14] LABS: Basophils # (A) 0.03 X 10*3/uL (0.00-0.10); Basophils % (A) 0.8 %; Eosinophils # (A) 0.02 X 10*3/uL (0.04-0.35); Eosinophils % (A) 0.5 %; HCT 34.9 % (37.2-46.3); HGB 11.7 g/dL (12.0-15.0); Immature Grans, Automated 0.8 %; Lymphocytes # (A) 1.26 X 10*3/uL (0.90-5.00); Lymphocytes % (A) 34.5 %; MCH 32.4 pg (27.0-32.0); MCHC 33.5 g/dL (32.0-37.0); MCV 96.7 fL (80.0-97.0); Mean Platelet Volume 9.6 fL (9.5-12.2); Monocytes # (A) 0.65 X 10*3/uL (0.20-1.00); Monocytes % (A) 17.8 %; NRBC Per 100 WBC 0 /100 WBCS (0.0-0.0); Neutrophils # (A) 1.66 X 10*3/uL (1.80-7.70); Neutrophils % (A) 45.6 %; Platelet Count 150 X 10*3/uL (140-440); RBC 3.61 X 10*6/uL (4.10-5.20); WBC 3.65 X 10*3/uL (4.50-10.00)
[2022-07-05 09:19] LABS: African American GFR (CKD) 117.1 (60.0-200.0); Anion Gap 6.5 mmol/L (10.00-18.00); BUN/Creat Ratio 17.57 Ratio (12.00-20.00); Blood Urea Nitrogen 12.3 mg/dL (9.0-27.0); Calcium 8.1 mg/dL (8.7-10.3); Carbon Dioxide 27.5 mmol/L (20.0-27.5); Potassium 4.1 mmol/L (3.5-5.5)
[2022-07-05] MEDS: HEPARIN SODIUM,PORCINE/PF 5,000 UNIT/0.5 ML SYRINGE SQ SCH ×2 (09:33→21:16)
[2022-07-05] MEDS: FOLIC ACID 1 MG TAB PO SCH (09:33)
[2022-07-05] MEDS: DEXTROSE 5%-0.45% NACL 1,000 ML IV SCH (12:58)
--- NOTE | 2022-07-05 13:56 | P.HPIM ---
History of Present Illness H&P Date: 07/04/22 Chief Complaint: Seizures Patient is a 52-year-old female with a known history of seizure disorder, cerebral palsy who is currently at [facility] or brought to the hospital due to seizure episodes 2. Patient states that she had seizures 2 last night. EMS states that she had a second seizure lasting at least seconds and she was postictal for about 3 minutes. Patient is on antiplatelet medications including Depakote, Briviact and vimpat . Denied any complaints of chest pain or shortness of breath. No nausea vomiting abdominal pain or diarrhea. No cough or sputum production. No fever no chills. Patient was recently admitted to hospital due to hyponatremia and seizure episodes thought to be due to acute imbalance. She was discharged on 06/04/2022. Neurology recommended to continue antiepileptic medications.. Patient also takes hydrochlorothiazide/triamterene for blood pressure. Laboratory data showed WBC 3.0 hemoglobin 13.1 and platelets 160 sodium 121 potassium 4.1 chloride 86 bicarb is 27 BUN 16 and creatinine 0.55 Calcium 8.0 magnesium 1.6 Urinalysis showed no evidence of infection. Review of Systems Constitutional: Patient denies any fever or chills . No generalized weakness or weight loss. Abdomen: Patient denied nausea vomiting and diarrhea and abdominal pain. Cardiovascular: Patient denies any chest pain or short of breath no palpitations. Respiratory: patient denied any cough is from production. No shortness of breath Neurologic: Patient denied any numbness or tingling headache. Musculoskeletal: Patient denies any complaints of joint swelling or deformity. Skin: Negative Psychiatric: Negative Endocrine: No heat or cold intolerance. No recent weight gain. Genitourinary: No dysuria or hematuria. All other 14 point ROS negative except the above Past Medical History Past Medical History: Seizure Disorder Additional Past Medical History / Comment(s): Called [facility]iary to verify history: Cerebral Palsy, moderate intellectual delay, urinary incontince, swelling in legs is normal for patient, club feet History of Any Multi-Drug Resistant Organisms: Unobtainable Past Surgical History: Unable to Obtain Past Anesthesia/Blood Transfusion Reactions: No Reported Reaction Past Psychological History: Depression Smoking Status: Never smoker Past Alcohol Use History: None Reported Past Drug Use History: None Reported Medications and Allergies Home Medications Medication Instructions Recorded Confirmed Type Brivaracetam [Briviact] 50 mg PO DAILY@0600 02/05/22 07/04/22 History Calcium Carbonate/Vitamin D3 1 tab PO DAILY@59902/05/22 07/04/22 History [Calcium 600-Vit D3 5 Mcg (200 Iu)] Divalproex ER [Depakote ER] 500 mg PO BID@0600,199902/05/22 07/04/22 History Docusate [Colace] 100 mg PO BID@0600,1700 02/05/22 07/04/22 History Escitalopram [Lexapro] 20 mg PO DAILY@59902/05/22 07/04/22 History Loratadine 10 mg PO DAILY@59902/05/22 07/04/22 History Jnk-Flkz-Rwbgu Acid 1 cap PO DAILY@59902/05/22 07/04/22 History [-U Capsule (formulary)] Psyllium Husk [Metamucil] 0.4 gm PO DAILY@59902/05/22 07/04/22 History QUEtiapine FUMARATE [SEROquel] 200 mg PO HS@199902/05/22 07/04/22 History QUEtiapine [SEROquel] 100 mg PO DAILY@1600 02/05/22 07/04/22 History Lacosamide [Vimpat] 200 mg PO BID@0600,1900 #4 tab 02/08/22 07/04/22 Rx Desmopressin [Ddavp] 0.2 mg PO DAILY@0606/02/22 07/04/22 History Desmopressin [Ddavp] 0.4 mg PO HS@199906/02/22 07/04/22 History Folic Acid 0.4 mg PO DAILY@0806/02/22 07/04/22 History Triamterene-Hctz 37.5-25Mg 1 cap PO DAILY@59906/02/22 07/04/22 History [Dyazide 37.5-25 Capsule] Allergies Allergy/AdvReac Type Severity Reaction Status Date / Time chocolate flavor Allergy Unknown Verified 07/04/22 12:31 Physical Exam Vitals: Vital Signs Temp Pulse Resp BP Pulse Ox 07/04/22 07:15 98.6 F 98 20 119/72 97 Intake and Output 07/03/22 07/04/22 07/04/22 22:59 06:59 14:59 Other: Weight 58.967 kg PHYSICAL EXAMINATION: Patient is lying in the bed comfortably, no acute distress, awake alert and oriented.. HEENT: Normocephalic. Neck is supple. Pupils reactive. Nostrils clear. Oral cavity is moist. Neck reveals no JVD, carotid bruits, or thyromegaly. CHEST EXAMINATION: Trachea is central. Symmetrical expansion. Lung jones clear to auscultation and percussion. CARDIAC: Normal S1, S2 with no gallops. No murmurs ABDOMEN: Soft. Bowel sounds normal. No organomegaly. No abdominal bruits. Extremities: Patient does have bilateral ankle swelling.. No clubbing or cyanosis Neurologically awake, alert, oriented x2-3 with well-coordinated movements. Mentally challenged. No focal deficits noted Skin: No rash or skin lesions. Psychiatric: Coperative. Nonsuicidal Musculoskeletal: No joint swelling or deformity. Normal range of motion. Results CBC & Chem 7: 07/07/22 05:55 07/07/22 05:48 Labs: Abnormal Lab Results - Last 24 Hours (Table) 07/04/22 07/04/22 Range/Units 07:58 07:58 WBC 3.0 L (3.8-10.6) k/uL Sodium 121 L (137-145) mmol/L Chloride 86 L (98-107) mmol/L Calcium 8.0 L (8.4-10.2) mg/dL Total Protein 6.1 L (6.3-8.2) g/dL Albumin 3.3 L (3.5-5.0) g/dL Thrombosis Risk Factor Assmnt - DVT/VTE Prophylaxis DVT/VTE Prophylaxis: Pharmacologic Prophylaxis ordered Assessment and Plan Assessment: Hypoosmolar Hyponatremia likely due to hypovolemia Seizures episodes 2 Cerebral palsy and developmental delay Hypertension History of urinary incontinence Depression DVT prophylaxis heparin subcu Plan: Patient will be continued on IV hydration with normal saline and monitor sodium level in next 6 hours. Follow-up urine sodium, osmolality, serum osmolality and follow up closely. Patient will be started back on home dose of antiepileptic medications. Depakote, Briviact and vimpat . Hydrochlorothiazide will be on hold. Seizure precautions. TSH and serum cortisol level within normal limits during recent admission. Continue with home medications and follow closely. Time with Patient: Greater than 30
[2022-07-05] MEDS: MAGNESIUM SULFATE-D5W PMX 1 GM in DEXTROSE/WATER 1 100ML.BAG IVPB SCH ×2 (14:04→15:16)
[2022-07-05] MEDS: QUEtiapine 100 MG TAB PO SCH (16:20)
[2022-07-05] MEDS: QUEtiapine 200 MG TAB PO SCH (21:16)
[2022-07-06] MEDS: DEXTROSE 5%-0.45% NACL 1,000 ML IV SCH ×2 (02:35→16:26)
[2022-07-06] MEDS: NON FORMULARY DRUG (Brivaracetam [Briviact] 50 MG Tablet) PO SCH (10:03)
[2022-07-06] MEDS: DESMOPRESSIN 0.2 MG TAB PO SCH ×2 (10:03→21:04)
[2022-07-06] MEDS: CALCIUM CARB-VIT D 500 MG-5 MCG TAB PO SCH (10:03)
[2022-07-06] MEDS: DIVALPROEX ER 500 MG TAB.ER.24H PO SCH ×2 (10:04→21:06)
[2022-07-06] MEDS: ESCITALOPRAM 20 MG TAB PO SCH (10:05)
[2022-07-06] MEDS: LACOSAMIDE 50 MG TABLET PO SCH ×2 (10:06→21:03)
[2022-07-06] MEDS: HEPARIN SODIUM,PORCINE/PF 5,000 UNIT/0.5 ML SYRINGE SQ SCH ×2 (10:19→21:04)
[2022-07-06] MEDS: FOLIC ACID 1 MG TAB PO SCH (10:19)
[2022-07-06] MEDS: QUEtiapine 100 MG TAB PO SCH (16:29)
--- NOTE | 2022-07-06 16:53 | US ---
EXAMINATION TYPE: US venous doppler duplex LE DATE OF EXAM: 07/06/2022 4:24 PM COMPARISON: NONE CLINICAL HISTORY: left leg swelling. Swelling. Left leg appears more swollen. Pain in bilateral legs. Limited history from patient. SIDE PERFORMED: Bilateral TECHNIQUE: The lower extremity deep venous system is examined utilizing real time linear array sonog carlos alberto with graded compression, doppler sonography and color-flow sonography. VESSELS IMAGED: Common Femoral Vein Deep Femoral Vein Greater Saphenous Vein * Femoral Vein Popliteal Vein Small Saphenous Vein * Proximal Calf Veins (* superficial vessels) Exam is very limited due to patient body habitus, movement, and edema. Right Leg: Limited visibility of distal femoral vein, popliteal vein, and prox calf veins. *Color defect seen within distal femoral vein and popliteal vein. Possible thrombus within these segm ents. Veins do appear to compress, however. Lack of color flow in popliteal vein may be due to positi oning. Cannot rule out DVT of popliteal vein with certainty. Left Leg: Limited visibility of distal femoral vein and popliteal vein due to patient positioning and movement. Cannot rule out DVT with certainty. Possible color defect in these veins. Better color good w shown in distal femoral vein with curved probe. Lack of color flow in popliteal vein may be due to positioning. All veins do appear to compress. Prox calf veins not seen. IMPRESSION: Extremely limited study secondary to patient's body habitus, marked partially swelling and involuntar y patient motion. DVT cannot be excluded in either lower extremity.
[2022-07-06] MEDS: QUEtiapine 200 MG TAB PO SCH (21:03)
[2022-07-07] MEDS: DEXTROSE 5%-0.45% NACL 1,000 ML IV SCH ×2 (03:43→19:55)
[2022-07-07] MEDS: NON FORMULARY DRUG (Brivaracetam [Briviact] 50 MG Tablet) PO SCH (05:14)
[2022-07-07] MEDS: DIVALPROEX ER 500 MG TAB.ER.24H PO SCH ×2 (05:27→20:41)
[2022-07-07] MEDS: DESMOPRESSIN 0.2 MG TAB PO SCH ×2 (05:27→20:38)
[2022-07-07] MEDS: LACOSAMIDE 50 MG TABLET PO SCH ×2 (05:27→18:21)
[2022-07-07] MEDS: CALCIUM CARB-VIT D 500 MG-5 MCG TAB PO SCH (05:27)
[2022-07-07] MEDS: ESCITALOPRAM 20 MG TAB PO SCH (06:16)
[2022-07-07] MEDS: HEPARIN SODIUM,PORCINE/PF 5,000 UNIT/0.5 ML SYRINGE SQ SCH ×2 (08:49→20:36)
[2022-07-07] MEDS: FOLIC ACID 1 MG TAB PO SCH (08:49)
[2022-07-07 09:13] LABS: Basophils # (A) 0.03 X 10*3/uL (0.00-0.10); Basophils % (A) 0.7 %; Eosinophils # (A) 0.05 X 10*3/uL (0.04-0.35); Eosinophils % (A) 1.2 %; HCT 35.6 % (37.2-46.3); Immature Grans, Automated 0.5 %; Lymphocytes # (A) 1.68 X 10*3/uL (0.90-5.00); Lymphocytes % (A) 40.9 %; MCH 32.5 pg (27.0-32.0); MCHC 33.7 g/dL (32.0-37.0); MCV 96.5 fL (80.0-97.0); Mean Platelet Volume 10.2 fL (9.5-12.2); Monocytes # (A) 0.67 X 10*3/uL (0.20-1.00); Monocytes % (A) 16.3 %; NRBC Per 100 WBC 0 /100 WBCS (0.0-0.0); Neutrophils # (A) 1.66 X 10*3/uL (1.80-7.70); Neutrophils % (A) 40.4 %; Platelet Count 153 X 10*3/uL (140-440); RBC 3.69 X 10*6/uL (4.10-5.20); RDW 12.8 % (11.5-14.5); WBC 4.11 X 10*3/uL (4.50-10.00)
[2022-07-07 09:15] LABS: African American GFR (CKD) 125.7 (60.0-200.0); Anion Gap 6.9 mmol/L (10.00-18.00); BUN/Creat Ratio 18.09 Ratio (12.00-20.00); Blood Urea Nitrogen 10.2 mg/dL (9.0-27.0); Carbon Dioxide 23.7 mmol/L (20.0-27.5); Non-African American GFR(CKD) 108.5 (60.0-200.0); Potassium 4.3 mmol/L (3.5-5.5)
[2022-07-07] MEDS: QUEtiapine 100 MG TAB PO SCH (17:06)
[2022-07-07] MEDS: QUEtiapine 200 MG TAB PO SCH (20:37)
[2022-07-07] MEDS: SODIUM CHLORIDE 0.9% 1,000 ML IV SCH (20:39)
--- NOTE | 2022-07-07 23:55 | P.PN ---
Subjective Progress Note Date: 07/05/22 Patient is a 52-year-old female with a known history of seizure disorder, cerebral palsy who is currently at shelter or brought to the hospital due to seizure episodes 2. Patient states that she had seizures 2 last night. EMS states that she had a second seizure lasting at least seconds and she was postictal for about 3 minutes. Patient is on antiplatelet medications including Depakote, Briviact and vimpat . Denied any complaints of chest pain or shortness of breath. No nausea vomiting abdominal pain or diarrhea. No cough or sputum production. No fever no chills. Patient was recently admitted to hospital due to hyponatremia and seizure episodes thought to be due to acute imbalance. She was discharged on 06/04/2022. Neurology recommended to continue antiepileptic medications.. Patient also takes hydrochlorothiazide/triamterene for blood pressure. Laboratory data showed WBC 3.0 hemoglobin 13.1 and platelets 160 sodium 121 potassium 4.1 chloride 86 bicarb is 27 BUN 16 and creatinine 0.55 Calcium 8.0 magnesium 1.6 Urinalysis showed no evidence of infection. 07/05/2022 Patient is resting in the bed. Awake alert and mental status at baseline. No episodes of seizures overnight. Patient is being current 3 antiepileptic medications. No complaints of nausea vomiting abdominal pain or diarrhea. Having bilateral leg swelling mainly in the ankle region. Sodium level improved to 130 with IV hydration. Currently changed to D5 half- normal saline and monitor sodium level closely. Laboratory data showed WBC 3.6 hemoglobin 11.7 and platelets 150 BUN 12.3 and creatinine 0.7 Urine culture showed gram-negative bacilli. Patient is being continued ceftriaxone. Current medications reviewed. Objective - Vital Signs Vital signs: Vital Signs Temp 97.6 F 07/05/22 11:43 Pulse 71 07/05/22 11:43 Resp 14 07/05/22 11:43 BP 118/78 07/05/22 11:43 Pulse Ox 100 07/05/22 11:43 FiO2 Intake & Output 07/05/22 07/05/22 07/06/22 06:59 18:59 06:59 Output Total 400 Balance -400 Output: Urine 400 Other: Voiding Method Diaper Incontinent External Catheter # Voids 2 - Exam PHYSICAL EXAMINATION: Patient is lying in the bed comfortably, no acute distress, awake alert and oriented.. HEENT: Normocephalic. Neck is supple. Pupils reactive. Nostrils clear. Oral cavity is moist. Neck reveals no JVD, carotid bruits, or thyromegaly. CHEST EXAMINATION: Trachea is central. Symmetrical expansion. Lung jones clear to auscultation and percussion. CARDIAC: Normal S1, S2 with no gallops. No murmurs ABDOMEN: Soft. Bowel sounds normal. No organomegaly. No abdominal bruits. Extremities: Patient does have bilateral ankle swelling.. No clubbing or cyanosis Neurologically awake, alert, oriented x2-3 with well-coordinated movements. Mentally challenged. No focal deficits noted Skin: No rash or skin lesions. Psychiatric: Coperative. Nonsuicidal Musculoskeletal: No joint swelling or deformity. Normal range of motion. - Labs CBC & Chem 7: 07/07/22 05:55 07/07/22 05:48 Labs: Abnormal Lab Results - Last 24 Hours (Table) 07/04/22 07/04/22 07/04/22 Range/Units 18:03 22:12 22:12 WBC (4.50-10.00) X 10*3/uL RBC (4.10-5.20) X 10*6/uL Hgb (12.0-15.0) g/dL Hct (37.2-46.3) % MCH (27.0-32.0) pg Neutrophils # (1.80-7.70) X 10*3/uL Eosinophils # (0.04-0.35) X 10*3/uL Sodium (135-145) mmol/L Anion Gap (10.00-18.00) mmol/L Osmolality 272 L (280-301) mosm/kg Calcium (8.7-10.3) mg/dL Urine Blood Trace H (Negative) Ur Leukocyte Esterase Large H (Negative) Urine WBC 33 H (0-5) /hpf Urine Bacteria Occasional H (None) /hpf Ur Random Sodium <20 L (40-220) mmol/L 07/05/22 07/05/22 Range/Units 05:55 05:55 WBC 3.65 L (4.50-10.00) X 10*3/uL RBC 3.61 L (4.10-5.20) X 10*6/uL Hgb 11.7 L (12.0-15.0) g/dL Hct 34.9 L (37.2-46.3) % MCH 32.4 H (27.0-32.0) pg Neutrophils # 1.66 L (1.80-7.70) X 10*3/uL Eosinophils # 0.02 L (0.04-0.35) X 10*3/uL Sodium 130 L (135-145) mmol/L Anion Gap 6.50 L (10.00-18.00) mmol/L Osmolality (280-301) mosm/kg Calcium 8.1 L (8.7-10.3) mg/dL Urine Blood (Negative) Ur Leukocyte Esterase (Negative) Urine WBC (0-5) /hpf Urine Bacteria (None) /hpf Ur Random Sodium (40-220) mmol/L Microbiology - Last 24 Hours (Table) 07/04/22 22:12 Urine Culture - Preliminary Urine,Voided Assessment and Plan Assessment: Hypoosmolar Hyponatremia likely due to hypovolemia Seizures episodes 2 Cerebral palsy and developmental delay Hypertension History of urinary incontinence Depression DVT prophylaxis heparin subcu Plan: Patient was continued on normal saline changed to D5 half-normal to prevent rapid correction. Serum osmolality 272.. Patient was started back on home dose of antiepileptic medications. Depakote, Briviact and vimpat . Hydrochlorothiazide will be on hold. Seizure precautions. TSH and serum cortisol level within normal limits during recent admission. Continue with home medications and follow closely. Time with Patient: Greater than 30
--- NOTE | 2022-07-07 23:59 | P.PN ---
Subjective Progress Note Date: 07/06/22 Patient is a 52-year-old female with a known history of seizure disorder, cerebral palsy who is currently at assisted or brought to the hospital due to seizure episodes 2. Patient states that she had seizures 2 last night. EMS states that she had a second seizure lasting at least seconds and she was postictal for about 3 minutes. Patient is on antiplatelet medications including Depakote, Briviact and vimpat . Denied any complaints of chest pain or shortness of breath. No nausea vomiting abdominal pain or diarrhea. No cough or sputum production. No fever no chills. Patient was recently admitted to hospital due to hyponatremia and seizure episodes thought to be due to acute imbalance. She was discharged on 06/04/2022. Neurology recommended to continue antiepileptic medications.. Patient also takes hydrochlorothiazide/triamterene for blood pressure. Laboratory data showed WBC 3.0 hemoglobin 13.1 and platelets 160 sodium 121 potassium 4.1 chloride 86 bicarb is 27 BUN 16 and creatinine 0.55 Calcium 8.0 magnesium 1.6 Urinalysis showed no evidence of infection. 07/05/2022 Patient is resting in the bed. Awake alert and mental status at baseline. No episodes of seizures overnight. Patient is being current 3 antiepileptic medications. No complaints of nausea vomiting abdominal pain or diarrhea. Having bilateral leg swelling mainly in the ankle region. Sodium level improved to 130 with IV hydration. Currently changed to D5 half- normal saline and monitor sodium level closely. Laboratory data showed WBC 3.6 hemoglobin 11.7 and platelets 150 BUN 12.3 and creatinine 0.7 Urine culture showed gram-negative bacilli. Patient is being continued ceftriaxone. 07/06/2022 Patient is resting in bed. Awake alert and oriented. Mental status is at baseline. No further episodes of seizures. Urine culture showed gram-negative bacilli. Currently on ceftriaxone. Otherwise patient is D5 half-normal saline and monitor sodium level. Due to bilateral leg swelling left greater than right duplex scan was ordered to rule out DVT. No fever no chills. No cough or sputum production. No nausea vomiting or abdominal pain or diarrhea. Current medications reviewed. Objective - Vital Signs Vital signs: Vital Signs Temp 98 F 07/06/22 13:00 Pulse 91 07/06/22 13:00 Resp 16 07/06/22 13:00 BP 121/74 07/06/22 13:00 Pulse Ox 100 07/05/22 21:00 FiO2 Intake & Output 07/06/22 07/06/22 07/07/22 06:59 18:59 05:59 Output Total 1600 Balance -1600 Output: Urine 1600 - Exam PHYSICAL EXAMINATION: Patient is lying in the bed comfortably, no acute distress, awake alert and oriented.. HEENT: Normocephalic. Neck is supple. Pupils reactive. Nostrils clear. Oral cavity is moist. Neck reveals no JVD, carotid bruits, or thyromegaly. CHEST EXAMINATION: Trachea is central. Symmetrical expansion. Lung jones clear to auscultation and percussion. CARDIAC: Normal S1, S2 with no gallops. No murmurs ABDOMEN: Soft. Bowel sounds normal. No organomegaly. No abdominal bruits. Extremities: Patient does have bilateral ankle swelling.. No clubbing or cyanosis Neurologically awake, alert, oriented x2-3 with well-coordinated movements. Mentally challenged. No focal deficits noted Skin: No rash or skin lesions. Psychiatric: Coperative. Nonsuicidal Musculoskeletal: No joint swelling or deformity. Normal range of motion. - Labs CBC & Chem 7: 07/07/22 05:55 07/07/22 05:48 Labs: Microbiology - Last 24 Hours (Table) 07/04/22 22:12 Urine Culture - Preliminary Urine,Voided Gram Neg Bacilli Assessment and Plan Assessment: Hypoosmolar Hyponatremia likely due to hypovolemia Seizures episodes 2 Acute urinary tract infection Cerebral palsy and developmental delay Hypertension History of urinary incontinence Depression DVT prophylaxis heparin subcu Plan: Patient was continued on normal saline changed to D5 half-normal to prevent rapid correction. Serum osmolality 272.. Patient was started back on home dose of antiepileptic medications. Depakote, Briviact and vimpat . Hydrochlorothiazide will be on hold. Seizure precautions. Continue with ceftriaxone. TSH and serum cortisol level within normal limits during recent admission. Continue with home medications and follow closely. Time with Patient: Greater than 30
--- NOTE | 2022-07-08 | P.PN ---
Subjective Progress Note Date: 07/07/22 Patient is a 52-year-old female with a known history of seizure disorder, cerebral palsy who is currently at senior care or brought to the hospital due to seizure episodes 2. Patient states that she had seizures 2 last night. EMS states that she had a second seizure lasting at least seconds and she was postictal for about 3 minutes. Patient is on antiplatelet medications including Depakote, Briviact and vimpat . Denied any complaints of chest pain or shortness of breath. No nausea vomiting abdominal pain or diarrhea. No cough or sputum production. No fever no chills. Patient was recently admitted to hospital due to hyponatremia and seizure episodes thought to be due to acute imbalance. She was discharged on 06/04/2022. Neurology recommended to continue antiepileptic medications.. Patient also takes hydrochlorothiazide/triamterene for blood pressure. Laboratory data showed WBC 3.0 hemoglobin 13.1 and platelets 160 sodium 121 potassium 4.1 chloride 86 bicarb is 27 BUN 16 and creatinine 0.55 Calcium 8.0 magnesium 1.6 Urinalysis showed no evidence of infection. 07/05/2022 Patient is resting in the bed. Awake alert and mental status at baseline. No episodes of seizures overnight. Patient is being current 3 antiepileptic medications. No complaints of nausea vomiting abdominal pain or diarrhea. Having bilateral leg swelling mainly in the ankle region. Sodium level improved to 130 with IV hydration. Currently changed to D5 half- normal saline and monitor sodium level closely. Laboratory data showed WBC 3.6 hemoglobin 11.7 and platelets 150 BUN 12.3 and creatinine 0.7 Urine culture showed gram-negative bacilli. Patient is being continued ceftriaxone. 07/06/2022 Patient is resting in bed. Awake alert and oriented. Mental status is at baseline. No further episodes of seizures. Urine culture showed gram-negative bacilli. Currently on ceftriaxone. Otherwise patient is D5 half-normal saline and monitor sodium level. Due to bilateral leg swelling left greater than right duplex scan was ordered to rule out DVT. No fever no chills. No cough or sputum production. No nausea vomiting or abdominal pain or diarrhea. 07/07/2022 Patient is lying bed. Awake alert and oriented. No complaints of chest pain or shortness of breath. No nausea vomiting or abdomen pain or diarrhea. Leg swelling remains the same. Duplex scan is negative for DVT. Patient is tolerating oral diet. Encourage solid diet and increased fluids. IV fluids will be changed to normal saline. Sodium level came down to 121 again. Laboratory data showed WBC 4.1 hemoglobin 12.0 and platelets 153 BUN 10.2 and creatinine 0.6. Urine culture showed E. coli and is pansensitive. Currently on ceftriaxone. Current medications reviewed. Objective - Vital Signs Vital signs: Vital Signs Temp 97.7 F 07/07/22 11:53 Pulse 75 07/07/22 11:53 Resp 20 07/07/22 11:53 BP 118/75 07/07/22 11:53 Pulse Ox 100 07/07/22 11:53 FiO2 Intake & Output 07/06/22 07/07/22 07/07/22 19:59 06:59 18:59 Intake Total 900 Output Total Balance 900 Intake: Intake, IV Titration 900 Amount Dextrose 5%-0.45% NaCl 1, 900 000 ml @ 75 mls/hr IV . [id number] [facility] Rx#:[id number] Output: Urine Other: Voiding Method Diaper Incontinent External Catheter # Voids # Bowel Movements - Exam PHYSICAL EXAMINATION: Patient is lying in the bed comfortably, no acute distress, awake alert and oriented.. HEENT: Normocephalic. Neck is supple. Pupils reactive. Nostrils clear. Oral cavity is moist. Neck reveals no JVD, carotid bruits, or thyromegaly. CHEST EXAMINATION: Trachea is central. Symmetrical expansion. Lung jones clear to auscultation and percussion. CARDIAC: Normal S1, S2 with no gallops. No murmurs ABDOMEN: Soft. Bowel sounds normal. No organomegaly. No abdominal bruits. Extremities: Patient does have bilateral ankle swelling.. No clubbing or cyanosis Neurologically awake, alert, oriented x2-3 with well-coordinated movements. Mentally challenged. No focal deficits noted Skin: No rash or skin lesions. Psychiatric: Coperative. Nonsuicidal Musculoskeletal: No joint swelling or deformity. Normal range of motion. - Labs CBC & Chem 7: 07/07/22 05:55 07/07/22 05:48 Labs: Abnormal Lab Results - Last 24 Hours (Table) 07/07/22 07/07/22 Range/Units 05:48 05:55 WBC 4.11 L (4.50-10.00) X 10*3/uL RBC 3.69 L (4.10-5.20) X 10*6/uL Hct 35.6 L (37.2-46.3) % MCH 32.5 H (27.0-32.0) pg Neutrophils # 1.66 L (1.80-7.70) X 10*3/uL Sodium 121 L (135-145) mmol/L Chloride 90 L (96-109) mmol/L Anion Gap 6.90 L (10.00-18.00) mmol/L Calcium 8.0 L (8.7-10.3) mg/dL Microbiology - Last 24 Hours (Table) 07/04/22 22:12 Urine Culture - Final Urine,Voided Escherichia coli Assessment and Plan Assessment: Hypoosmolar Hyponatremia likely due to hypovolemia Seizures episodes 2 Acute urinary tract infection with E. coli Cerebral palsy and developmental delay Hypertension History of urinary incontinence Depression DVT prophylaxis heparin subcu Plan: Patient was continued on normal saline Serum osmolality 272.. Patient was started back on home dose of antiepileptic medications. Depakote, Briviact and vimpat . Hydrochlorothiazide will be on hold. Seizure precautions. Continue with ceftriaxone. TSH and serum cortisol level within normal limits during recent admission. Continue with home medications and follow closely. Time with Patient: Greater than 30
[2022-07-08] MEDS: LACOSAMIDE 50 MG TABLET PO SCH ×2 (06:15→19:56)
[2022-07-08] MEDS: CALCIUM CARB-VIT D 500 MG-5 MCG TAB PO SCH (06:16)
[2022-07-08] MEDS: ESCITALOPRAM 20 MG TAB PO SCH (06:16)
[2022-07-08] MEDS: DESMOPRESSIN 0.2 MG TAB PO SCH ×2 (06:16→19:56)
[2022-07-08] MEDS: DIVALPROEX ER 500 MG TAB.ER.24H PO SCH ×2 (06:16→19:56)
[2022-07-08] MEDS: NON FORMULARY DRUG (Brivaracetam [Briviact] 50 MG Tablet) PO SCH (06:22)
[2022-07-08] MEDS: FOLIC ACID 1 MG TAB PO SCH (08:16)
[2022-07-08] MEDS: HEPARIN SODIUM,PORCINE/PF 5,000 UNIT/0.5 ML SYRINGE SQ SCH ×2 (08:17→20:00)
[2022-07-08 10:56] LABS: Basophils % (A) 1 %; Eosinophils # (A) 0.1 k/uL (0-0.7); Eosinophils % (A) 1 %; HCT 36.6 % (34.0-46.0); Lymphocytes # (A) 1.2 k/uL (1.0-4.8); Lymphocytes % (A) 22 %; MCHC 32.9 g/dL (31.0-37.0); Mean Platelet Volume 8.6; Monocytes # (A) 0.6 k/uL (0-1.0); Monocytes % (A) 12 %; Neutrophils # (A) 3.2 k/uL (1.3-7.7); Neutrophils % (A) 61 %; Platelet Count 166 k/uL (150-450); RBC 3.65 m/uL (3.80-5.40); RDW 12.8 % (11.5-15.5); WBC 5.3 k/uL (3.8-10.6)
[2022-07-08 11:08] LABS: MCV 100.4 fL (80.0-100.0)
[2022-07-08 11:16] LABS: African American GFR (CKD) >90 (>60 ml/min/1.73 sqM); Anion Gap 6 mmol/L; Blood Urea Nitrogen 14 mg/dL (7-17); Calcium 7.8 mg/dL (8.4-10.2); Carbon Dioxide 22 mmol/L (22-30); Chloride 97 mmol/L (98-107); Glucose 94 mg/dL (74-99); Non-African American GFR(CKD) >90 (>60 ml/min/1.73 sqM); Potassium 4.4 mmol/L (3.5-5.1); Sodium 125 mmol/L (137-145)
--- NOTE | 2022-07-08 11:26 | P.CNNES ---
History of Present Illness Consult date: 07/08/22 Requesting physician: Freddie Zuniga Reason for Consult: seizure History of Present Illness: This is a 52-year-old woman with history of epilepsy, cerebral palsy and the relative delay who presented emergency department because seizures. Neurology is consulted for seizure. History is obtained from medical record as well as primary team. It seems the patient had 2 seizures according to the ED note and that it's noted that the that her second seizure lasted 30 seconds and was post ictal for 30 minutes. According to the primary team patient has hyponatremia as low as 121 which improved initially to 1:30 but now back to 121 but the patient the had an additional seizure while in the hospital. and currently is back to baseline. She is on her home medication of Vimpat 200 mg a tablet twice a day as well as on Depakote ER 500 mg 1 tablet twice a day. Of note patient was evaluated by Dr. Medina on 2021 for breakthrough seizure and he felt was likely provoked due to hyponatremia. He recommended to continue her home medication of Vimpat 200 mg 1 tablet twice a day as well as Depakote 500 mg twice a day as well as Briviact 50 mg daily. Laser first is no for further details. Some of the workup consisted of: During this hospital visit her initial sodium was 121 that improved to 1:30 but currently back to 121. Calcium is 8.0, magnesium is 1.6 the glucose is 84 on initial presentation and no hypoglycemia event Urine culture is positive for E. coli Valproic acid level is 75.7 which is considered therapeutic level CT of the head on 06/03is reported as no acute intracranial process. Stable ventriculostomy catheter without evidence of for hydrocephalus. Absence of the corpus callosum. I personally could not review the CT because issues with the system Review of Systems Review of system: The 12 point system was reviewed and apparent positive and negative per HPI. Past Medical History Past Medical History: Seizure Disorder Additional Past Medical History / Comment(s): Called nursing home to verify history: Cerebral Palsy, moderate intellectual delay, urinary incontince, swelling in legs is normal for patient, club feet History of Any Multi-Drug Resistant Organisms: Unobtainable Past Surgical History: Unable to Obtain Past Anesthesia/Blood Transfusion Reactions: No Reported Reaction Past Psychological History: Depression Smoking Status: Never smoker Past Alcohol Use History: None Reported Past Drug Use History: None Reported Medications and Allergies Home Medications Medication Instructions Recorded Confirmed Type Brivaracetam [Briviact] 50 mg PO DAILY@0600 02/05/22 07/04/22 History Calcium Carbonate/Vitamin D3 1 tab PO DAILY@59902/05/22 07/04/22 History [Calcium 600-Vit D3 5 Mcg (200 Iu)] Divalproex ER [Depakote ER] 500 mg PO BID@06,199902/05/22 07/04/22 History Docusate [Colace] 100 mg PO BID@0600,1700 02/05/22 07/04/22 History Escitalopram [Lexapro] 20 mg PO DAILY@59902/05/22 07/04/22 History Loratadine 10 mg PO DAILY@0602/05/22 07/04/22 History [id number]-[id number]-[id number] Acid 1 cap PO DAILY@0602/05/22 07/04/22 History [-U Capsule (formulary)] Psyllium Husk [Metamucil] 0.4 gm PO DAILY@0600 02/05/22 07/04/22 History QUEtiapine FUMARATE [SEROquel] 200 mg PO HS@199902/05/22 07/04/22 History QUEtiapine [SEROquel] 100 mg PO DAILY@1600 02/05/22 07/04/22 History Lacosamide [Vimpat] 200 mg PO BID@0600,1900 #4 tab 02/08/22 07/04/22 Rx Desmopressin [Ddavp] 0.2 mg PO DAILY@0606/02/22 07/04/22 History Desmopressin [Ddavp] 0.4 mg PO HS@199906/02/22 07/04/22 History Folic Acid 0.4 mg PO DAILY@0800 06/02/22 07/04/22 History Triamterene-Hctz 37.5-25Mg 1 cap PO DAILY@0606/02/22 07/04/22 History [Dyazide 37.5-25 Capsule] Allergies Allergy/AdvReac Type Severity Reaction Status Date / Time chocolate flavor Allergy Unknown Verified 07/04/22 12:31 Physical Examination - Vital Signs Vital Signs: Vital Signs Temp Pulse Resp BP Pulse Ox 07/08/22 04:25 97.5 F L 106 H 20 111/60 94 L 07/07/22 19:06 97.8 F 87 18 113/67 95 07/07/22 11:53 97.7 F 75 20 118/75 100 Intake and Output 07/07/22 07/08/22 07/08/22 22:59 06:59 14:59 Intake Total 900 250 Output Total 1000 Balance -100 250 Intake: Intake, IV Titration 900 Amount Dextrose 5%-0.45% NaCl 1, 900 000 ml @ 75 mls/hr IV . [id number] [facility] Rx#:[id number] Oral 250 Output: Urine 1000 Other: Voiding Method Diaper Incontinent External Catheter # Voids 2 # Bowel Movements 1 GENERAL: The patient is sitting in recliner chair and is not in acute distress. CHEST: The heart rate is regular rate rhythm. No murmurs to auscultation. LUNG: Clear to auscultation bilaterally no wheezing noted throughout. Not labored breathing. ABDOMEN/GI: Bowel sounds present in all 4 quadrants. No tenderness to palpation throughout. NEUROLOGICAL: Higher mental function: The patient is awake, alert, oriented to self and stated she was in the hospital. She stated she does not know month or year. She correctly named objects (pen and glasses). She is following simple commands. No aphasia and no neglect. Cranial nerves: The pupils are round, equal and reactive to light. Dysconjugate gaze and hard to assess EOM because of limitation. Facial sensation is normal to touch throughout. The facial strength is normal throughout. Hearing is normal bilaterally to hand rub. Tongue is midline and moved [id number] without any difficulty. No dysarthria is noted. Shoulder shrug is normal bilaterally. Motor: The strength is lifting upper and lower above gravity equally. Normal tone and bulk. Cerebellum: Normal finger to nose bilaterally. Sensation: Sensation is normal to touch throughout. Reflexes (right/left): 1+ throughout. Plantars are mute bilaterally. Results - Laboratory Findings CBC and BMP: 07/08/22 10:24 07/08/22 10:24 Abnormal Lab Findings: Abnormal Labs 07/04/22 07/04/22 07/04/22 07:58 07:58 18:03 WBC 3.0 L RBC Hgb Hct MCH Neutrophils # Eosinophils # Sodium 121 L 129 L Chloride 86 L 93 L Anion Gap Osmolality Calcium 8.0 L 8.1 L Total Protein 6.1 L Albumin 3.3 L Urine Blood Ur Leukocyte Esterase Urine WBC Urine Bacteria Ur Random Sodium 07/04/22 07/04/22 07/04/22 18:03 22:12 22:12 WBC RBC Hgb Hct MCH Neutrophils # Eosinophils # Sodium Chloride Anion Gap Osmolality 272 L Calcium Total Protein Albumin Urine Blood Trace H Ur Leukocyte Esterase Large H Urine WBC 33 H Urine Bacteria Occasional H Ur Random Sodium <20 L 07/05/22 07/05/22 07/07/22 05:55 05:55 05:48 WBC 3.65 L RBC 3.61 L Hgb 11.7 L Hct 34.9 L MCH 32.4 H Neutrophils # 1.66 L Eosinophils # 0.02 L Sodium 130 L 121 L Chloride 90 L Anion Gap 6.50 L 6.90 L Osmolality Calcium 8.1 L 8.0 L Total Protein Albumin Urine Blood Ur Leukocyte Esterase Urine WBC Urine Bacteria Ur Random Sodium 07/07/22 05:55 WBC 4.11 L RBC 3.69 L Hgb Hct 35.6 L MCH 32.5 H Neutrophils # 1.66 L Eosinophils # Sodium Chloride Anion Gap Osmolality Calcium Total Protein Albumin Urine Blood Ur Leukocyte Esterase Urine WBC Urine Bacteria Ur Random Sodium Assessment and Plan Assessment: Breakthrough seizure. Possibly provoked due to underlying acute urinary tract infection with moderate hyponatremia---currently back to baseline Epilepsy Acute urinary tract infection (urine culture E.coli) Acute on chronic hyponatremia Cerebral palsy Developed a delay Plan: Continue her home dose of Vimpat 200 mg 1 tablet twice a day as well as Depakote 500 mg twice a day. Increased her home dose of Briviact 50 mg daily to 1 tab bid. Continue seizure precautions seizure pads Recommend ambulatory EEG as outpatient or epilepsy monitoring unit as outpatient since having recurrent break-through seizures. We'll defer the rest of the medical management to primary team Recommend the patient to follow-up with her neurologist as outpatient (Dr. Lama) but if continues to have seizures and continues to be uncontrolled recommend to follow-up with epileptilogist for management of epilepsy. We'll defer the rest of medical management to primary team. Plan was discussed with the patient's primary team. Thank you for the consultation. Time with Patient: Greater than 30
[2022-07-08] MEDS: SODIUM CHLORIDE 0.9% 1,000 ML IV SCH ×2 (15:23→21:45)
[2022-07-08] MEDS: QUEtiapine 100 MG TAB PO SCH (15:23)
[2022-07-08] MEDS: NON FORMULARY DRUG (Brivaracetam [Briviact] 50 MG) PO SCH (19:53)
[2022-07-08] MEDS: QUEtiapine 200 MG TAB PO SCH (19:56)
[2022-07-09] MEDS: DESMOPRESSIN 0.2 MG TAB PO SCH (05:58)
[2022-07-09] MEDS: DIVALPROEX ER 500 MG TAB.ER.24H PO SCH (05:58)
[2022-07-09] MEDS: LACOSAMIDE 50 MG TABLET PO SCH (05:58)
[2022-07-09] MEDS: CALCIUM CARB-VIT D 500 MG-5 MCG TAB PO SCH (05:58)
[2022-07-09] MEDS: ESCITALOPRAM 20 MG TAB PO SCH (05:58)
[2022-07-09 08:53] LABS: Basophils # (A) 0.03 X 10*3/uL (0.00-0.10); Basophils % (A) 0.6 %; Eosinophils # (A) 0.04 X 10*3/uL (0.04-0.35); Eosinophils % (A) 0.9 %; HCT 31.5 % (37.2-46.3); HGB 10.3 g/dL (12.0-15.0); Immature Grans, Automated 0.6 %; Lymphocytes # (A) 1.93 X 10*3/uL (0.90-5.00); Lymphocytes % (A) 41.2 %; MCH 32.8 pg (27.0-32.0); MCHC 32.7 g/dL (32.0-37.0); MCV 100.3 fL (80.0-97.0); Mean Platelet Volume 10.3 fL (9.5-12.2); Monocytes # (A) 1.16 X 10*3/uL (0.20-1.00); Monocytes % (A) 24.7 %; NRBC Per 100 WBC 0 /100 WBCS (0.0-0.0); Platelet Count 159 X 10*3/uL (140-440); RBC 3.14 X 10*6/uL (4.10-5.20); RDW 13.7 % (11.5-14.5); WBC 4.69 X 10*3/uL (4.50-10.00)
[2022-07-09 09:26] LABS: African American GFR (CKD) 99.6 (60.0-200.0); BUN/Creat Ratio 21.5 Ratio (12.00-20.00); Blood Urea Nitrogen 17.2 mg/dL (9.0-27.0); Calcium 7.8 mg/dL (8.7-10.3); Potassium 4.9 mmol/L (3.5-5.5)
[2022-07-09] MEDS: FOLIC ACID 1 MG TAB PO SCH (10:28)
[2022-07-09] MEDS: HEPARIN SODIUM,PORCINE/PF 5,000 UNIT/0.5 ML SYRINGE SQ SCH (10:29)
[2022-07-09] MEDS: NON FORMULARY DRUG (Brivaracetam [Briviact] 50 MG) PO SCH (10:36)
[2022-07-09] MEDS: SODIUM CHLORIDE 0.9% 1,000 ML IV SCH (11:40)
[2022-07-09 12:01] VITALS: BP 109/70; PULSE 85; RESP 20; TEMP 98.1
--- NOTE | 2022-07-09 13:14 | P.PN ---
Subjective Progress Note Date: 07/09/22 The patient is seen at bedside and per nurse no further seizure. Patient stated is doing well and no new issues. It seems the patient has not been getting her Briviact since we do not carry it as formulary and patient does not have medication. Objective - Vital Signs Vital signs: Vital Signs Temp 98.1 F 07/09/22 11:59 Pulse 85 07/09/22 11:59 Resp 20 07/09/22 11:59 BP 109/70 07/09/22 11:59 Pulse Ox 97 07/09/22 11:59 FiO2 Intake & Output 07/08/22 07/09/22 07/09/22 18:59 06:59 18:59 Intake Total 900 Balance 900 Intake: Intake, IV Titration 900 Amount Sodium Chloride 0.9% 1, 900 000 ml @ 75 mls/hr IV . [id number] [facility] Rx#:[id number] Other: Voiding Method Diaper Diaper Diaper Incontinent Incontinent Incontinent External Catheter External Catheter External Catheter # Voids 3 1 - Exam GENERAL: The patient is sitting in recliner chair and is not in acute distress. NEUROLOGICAL: Higher mental function: The patient is awake, alert, oriented to self and stated she was in the hospital. She stated she does not know month or year. She correctly named objects (pen and glasses). She is following simple commands. No aphasia and no neglect. Cranial nerves: The pupils are round, equal and reactive to light. Dysconjugate gaze and hard to assess EOM because of limitation. Facial sensation is normal to touch throughout. The facial strength is normal throughout. Hearing is normal bilaterally to hand rub. Tongue is midline and moved [id number] without any difficulty. No dysarthria is noted. Shoulder shrug is normal bilaterally. Motor: The strength is lifting upper and lower above gravity equally. Normal tone and bulk. Cerebellum: Normal finger to nose bilaterally. Sensation: Sensation is normal to touch throughout. Reflexes (right/left): 1+ throughout. Plantars are mute bilaterally. Some of the workup consisted of: During this hospital visit her initial sodium was 121 that improved to 130 but currently back to 121. Currently is 131. Calcium is 8.0, magnesium is 1.6 the glucose is 84 on initial presentation and no hypoglycemia event Urine culture is positive for E. coli Valproic acid level is 75.7 which is considered therapeutic level CT of the head on 06/03is reported as no acute intracranial process. Stable ventriculostomy catheter without evidence of for hydrocephalus. Absence of the corpus callosum. I personally could not review the CT because issues with the system - Labs CBC & Chem 7: 07/09/22 05:21 07/09/22 05:21 Labs: Abnormal Lab Results - Last 24 Hours (Table) 07/09/22 07/09/22 Range/Units 05:21 05:21 RBC 3.14 L (4.10-5.20) X 10*6/uL Hgb 10.3 L (12.0-15.0) g/dL Hct 31.5 L (37.2-46.3) % MCV 100.3 H (80.0-97.0) fL MCH 32.8 H (27.0-32.0) pg Neutrophils # 1.50 L (1.80-7.70) X 10*3/uL Monocytes # 1.16 H (0.20-1.00) X 10*3/uL Sodium 131 L (135-145) mmol/L Anion Gap 5.00 L (10.00-18.00) mmol/L BUN/Creatinine Ratio 21.50 H (12.00-20.00) Ratio Calcium 7.8 L (8.7-10.3) mg/dL Assessment and Plan Assessment: Breakthrough seizure. Is provoked due to not receiving Briviact and electrolyte abnormality (moderate hyponatremia) and acute UTI---Currently back to baseline Epilepsy Acute urinary tract infection (urine culture E.coli) Acute on chronic hyponatremia Cerebral palsy Developed a delay Plan: Continue her home dose of Vimpat 200 mg 1 tablet twice a day as well as Depakote 500 mg twice a day. Increased her home dose of Briviact 50 mg daily to 1 tab bid. We do not have Briviact as formulary. Continue seizure precautions seizure pads Recommend ambulatory EEG as outpatient or epilepsy monitoring unit as outpatient since having recurrent break-through seizures. We'll defer the rest of the medical management to primary team Recommend the patient to follow-up with her neurologist as outpatient (Dr. Lama) but if continues to have seizures and continues to be uncontrolled recommend to follow-up with epileptilogist for management of epilepsy. We'll defer the rest of medical management to primary team. Plan was discussed with the patient's nurse. No additional work-up and patient is clear for discharge from neurological perspective. Time with Patient: Less than 30
[2022-07-09] MEDS: QUEtiapine 100 MG TAB PO SCH (17:03)
== END 2022-07-09 18:47 | disposition home health service (06) | DRG 100 ==
LOC: EC 07:02 → 5NMEDONC 08:45
PROVIDERS: ADMIT Hospitalist; ATTEND Hospitalist
DX: G40.909 Epilepsy, unspecified, not intractable, without status epilepticus (principal); Q04.0 Congenital malformations of corpus callosum; E87.1 Hypo-osmolality and hyponatremia; N39.0 Urinary tract infection, site not specified; G80.9 Cerebral palsy, unspecified; I10 Essential (primary) hypertension; F32.A Depression, unspecified; R62.50 Unspecified lack of expected normal physiological development in childhood; B96.20 Unspecified Escherichia coli [E. coli] as the cause of diseases classified elsewhere; E86.1 Hypovolemia; R32 Unspecified urinary incontinence; M79.89 Other specified soft tissue disorders; Z79.899 Other long term (current) drug therapy; Z91.018 Allergy to other foods; Q66.89 Other specified congenital deformities of feet; Z98.2 Presence of cerebrospinal fluid drainage device; Z28.310 Unvaccinated for COVID-19
CPT/HCPCS: 36415; 80048; 80053; 80164; 81001; 83735; 83930; 83935; 84300; 84550; 85025; 87077; 87086; 87186; 93970; 96360; 99285

== ENCOUNTER 2024-09-26 06:10 | Observation (INO) | payer MEDICARE, OTHER ==
[2024-09-26 06:18] LABS: Glucose,Whole Blood 87 mg/dL (70-110)
--- NOTE | 2024-09-26 06:34 | ED ---
Seizure HPI - General Chief Complaint: Seizure Stated Complaint: Seizure Time Seen by Provider: 09/26/24 06:32 Source: patient, EMS, RN notes reviewed, old records reviewed, Caregiver Mode of arrival: EMS Limitations: altered mental status - History of Present Illness Initial Comments: 54-year-old female with a past medical history of cerebral palsy, developmental delay and seizure disorder presenting to the ER for evaluation of a seizure. [facility] caregiver provided majority of HPI. Patient was sleeping in her bed when she called for help down the hallway. Upon entering patient's room caregiver reports she stated she fell like she was going to have a seizure. Subsequently after that patient had a 7 to 8-minute seizure consisting of facial twitching along with full body shaking. Caregiver reports patient is currently at baseline. Patient denying any current pain. Caregiver denies any recent fevers, cough, congestion. She does admit to loose stools yesterday. Patient takes lacosamide, Depakote,briviact and has not missed a dose. - Related Data Home Medications Medication Instructions Recorded Confirmed Calcium Carbonate/Vitamin D3 1 tab PO DAILY@69902/05/22 09/26/24 [Calcium 600-Vit D3 5 Mcg (200 Iu)] Divalproex ER [Depakote ER] 500 mg PO BID@699,199902/05/22 09/26/24 Docusate [Colace] 100 mg PO BID@699,199902/05/22 09/26/24 Escitalopram [Lexapro] 20 mg PO DAILY@69902/05/22 09/26/24 Loratadine 10 mg PO DAILY@69902/05/22 09/26/24 Ofr-Hdxr-Ynxmf Acid 1 cap PO DAILY@69902/05/22 09/26/24 [-U Capsule (formulary)] Psyllium Husk [Metamucil] 0.4 gm PO DAILY@69902/05/22 09/26/24 QUEtiapine FUMARATE [SEROquel] 200 mg PO HS@199902/05/22 09/26/24 Desmopressin [Ddavp] 0.2 mg PO DAILY@69906/02/22 09/26/24 Desmopressin [Ddavp] 0.4 mg PO HS@199906/02/22 09/26/24 Folic Acid 0.4 mg PO DAILY@0706/02/22 09/26/24 Brivaracetam [Briviact] 50 mg PO DAILY@69909/26/24 09/26/24 Brivaracetam [Briviact] 75 mg PO HS@199909/26/24 09/26/24 Lacosamide [Vimpat] 200 mg PO BID@699,199909/26/24 09/26/24 Metamucil 0.52gm Cap 1 cap PO DAILY@69909/26/24 09/26/24 Nystatin 100,000Unit/gm Cream 1 applic TOPICAL TID PRN 09/26/24 09/26/24 [Mycostatin Cream] Triamterene-Hctz 37.5-25Mg 1 cap PO DAILY@69909/26/24 09/26/24 [Dyazide 37.5-25 Capsule] Allergies Allergy/AdvReac Type Severity Reaction Status Date / Time chocolate flavor Allergy Unknown Verified 09/26/24 08:33 Review of Systems ROS Statement: Those systems with pertinent positive or pertinent negative responses have been documented in the HPI. ROS Other: All systems not noted in ROS Statement are negative. Past Medical History Past Medical History: Seizure Disorder Additional Past Medical History / Comment(s): Called [facility] to verify history: Cerebral Palsy, moderate intellectual delay, urinary incontince, swelling in legs is normal for patient, club feet, Dandy Walker Syndrome History of Any Multi-Drug Resistant Organisms: Unobtainable Past Surgical History: Unable to Obtain Past Anesthesia/Blood Transfusion Reactions: No Reported Reaction Past Psychological History: Depression Smoking Status: Never smoker Past Alcohol Use History: None Reported Past Drug Use History: None Reported General Exam General appearance: alert, in no apparent distress Respiratory exam: Present: normal lung sounds bilaterally. Absent: respiratory distress, wheezes, rales, rhonchi, stridor Cardiovascular Exam: Present: regular rate, normal rhythm, normal heart sounds. Absent: systolic murmur, diastolic murmur, rubs, gallop, clicks GI/Abdominal exam: Present: soft, normal bowel sounds. Absent: distended, tenderness, guarding, rebound, rigid Extremities exam: Present: normal inspection, other (Nonpitting edema bilaterally) Neurological exam: Present: alert, CN II-XII intact Skin exam: Present: warm, dry, intact, normal color. Absent: rash Course Vital Signs 09/26/24 09/26/24 06:12 08:53 Temperature 97.5 F L 97.8 F Pulse Rate 83 72 Respiratory 18 16 Rate Blood Pressure 139/82 125/85 O2 Sat by Pulse 97 97 Oximetry Medical Decision Making - Medical Decision Making Was pt. sent in by a medical professional or institution (, PA, LOSS PREVENTION AND SAFETY MANAGER, urgent care, hospital, or prison...) When possible be specific @ -Patient sent from [facility] for evaluation of seizure Did you speak to anyone other than the patient for history (EMS, parent, family, police, friend...)? What history was obtained from this source @ -Caregiver providing majority of HPI and past medical history. Did you review nursing and triage notes (agree or disagree)? Why? @ -I reviewed and agree with nursing and triage notes Were old charts reviewed (outside hosp., previous admission, EMS record, old EKG, old radiological studies, urgent care reports/EKG's, prison records)? Report findings @ -No old charts were reviewed Differential Diagnosis (chest pain, altered mental status, abdominal pain women, abdominal pain men, vaginal bleeding, weakness, fever, dyspnea, syncope, headache, dizziness, GI bleed, back pain, seizure, CVA, palpatations, mental health, musculoskeletal)? @ -Differential Seizure:Recurrent seizure disorder, febrile seizure, alcohol withdrawal, stimulants, meningitis, encephalitis, intercranial hemorrhage, intracranial tumor, stroke, eclampsia, thyrotoxicosis, hypocalcemia, hyponatremia, hypernatremia, hypomagnesemia, psychogenic, this is not meant to be an all-inclusive list. EKG interpreted by me (3pts min.). @ -As above X-rays interpreted by me (1pt min.). @ -CXR interpreted by me negative for acute cardiopulmonary process. CT interpreted by me (1pt min.). @ -None done U/S interpreted by me (1pt. min.). @ -None done What testing was considered but not performed or refused? (CT, X-rays, U/S, labs)? Why? @ -None What meds were considered but not given or refused? Why? @ -None Did you discuss the management of the patient with other professionals (professionals i.e. , PA, LOSS PREVENTION AND SAFETY MANAGER, lab, RT, psych nurse, psychologist social, it support specialist, teacher, police officer booking, case planner)? Give summary @ -Yes, case discussed with Jena RAPHAEL for admission Was smoking cessation discussed for >3mins.? @ -No Was critical care preformed (if so, how long)? @ -No Were there social determinants of health that impacted care today? How? (Homelessness, low income, unemployed, alcoholism, drug addiction, transportation, low edu. Level, literacy, decrease access to med. care, residential, rehab)? @ -[Patient resides at [facility] Was there de-escalation of care discussed even if they declined (Discuss DNR or withdrawal of care, Hospice)? DNR status @ -No What co-morbidities impacted this encounter? (DM, HTN, Smoking, COPD, CAD, Cancer, CVA, ARF, Chemo, Hep., AIDS, mental health diagnosis, sleep apnea, morbid obesity)? @ -Seizure disorder, cerebral palsy, developmentally delayed. Was patient admitted / discharged? Hospital course, mention meds given and route, prescriptions, significant lab abnormalities, going to OR and other pertinent info. @ -Admitted. 54-year-old female presented to the ER via EMS for evaluation of seizure. Upon rooming, history and physical exam completed. Vitals within acceptable limits. Patient in no signs of acute distress reporting no current pain. sagger soak at bedside stating patient is at baseline mentation. Laboratory studies showing WBC of 4.2, hemoglobin 12.6, hyponatremia 122, potassium 3.8, chloride 90. Lactic 0.9, magnesium 1.5. Urinalysis unremarkable. Viral swabs negative. Chest x-ray negative. Patient given 1 L IVF fluid bolus in the ER. Admission considered and discussed with Jena RAPHAEL for treatment of hyponatremia. Magnesium supplemented. Case discussed with ED attending, Dr. Wheeler. Undiagnosed new problem with uncertain prognosis? @ -No Drug Therapy requiring intensive monitoring for toxicity (Heparin, Nitro, Insulin, Cardizem)? @ -No Were any procedures done? @ -No Diagnosis/symptom? @ -Hyponatremia/hypomagnesemia/seizure Acute, or Chronic, or Acute on Chronic? @ -Acute Uncomplicated (without systemic symptoms) or Complicated (systemic symptoms)? @ -Complicated Side effects of treatment? @ -No Exacerbation, Progression, or Severe Exacerbation? @ -No Poses a threat to life or bodily function? How? (Chest pain, [place], [place], pneumonia, PE, COPD, DKA, ARF, appy, cholecystitis, CVA, Diverticulitis, Homicidal, Suicidal, threat to staff... and all critical care pts) @ -Yes, electrolyte abnormalities can lead to lethal cardiac arrhythmias. - Lab Data Result diagrams: 09/26/24 06:38 09/26/24 06:34 Lab Results 09/26/24 09/26/24 09/26/24 Range/Units 06:17 06:34 06:34 WBC (3.8-10.6) k/uL RBC (3.80-5.40) m/uL Hgb (11.4-16.0) gm/dL Hct (34.0-46.0) % MCV (80.0-100.0) fL MCH (25.0-35.0) pg MCHC (31.0-37.0) g/dL RDW (11.5-15.5) % Plt Count (150-450) k/uL MPV Neutrophils % % Lymphocytes % % Monocytes % % Eosinophils % % Basophils % % Neutrophils # (1.3-7.7) k/uL Lymphocytes # (1.0-4.8) k/uL Monocytes # (0-1.0) k/uL Eosinophils # (0-0.7) k/uL Basophils # (0-0.2) k/uL Sodium 122 L (137-145) mmol/L Potassium 3.8 (3.5-5.1) mmol/L Chloride 90 L (98-107) mmol/L Carbon Dioxide 25 (22-30) mmol/L Anion Gap 7 mmol/L BUN 13 (7-17) mg/dL Creatinine 0.62 (0.52-1.04) mg/dL Est GFR (CKD-EPI)AfAm >90 (>60 ml/min/1.73 sqM) Est GFR (CKD-EPI)NonAf >90 (>60 ml/min/1.73 sqM) Glucose 91 (74-99) mg/dL POC Glucose (mg/dL) 87 (70-110) mg/dL POC Glu Telephone Supervisor ID Dayna Epifanio Plasma Lactic Acid Ezra 0.9 (0.7-2.0) mmol/L Calcium 8.4 (8.4-10.2) mg/dL Magnesium 1.5 L (1.6-2.3) mg/dL Total Bilirubin 0.4 (0.2-1.3) mg/dL AST 25 (14-36) U/L ALT 13 (4-34) U/L Alkaline Phosphatase 54 (38-126) U/L Total Protein 6.2 L (6.3-8.2) g/dL Albumin 3.3 L (3.5-5.0) g/dL Urine Color Urine Appearance (Clear) Urine pH (5.0-8.0) Ur Specific Higginson (1.001-1.035) Urine Protein (Negative) Urine Glucose (UA) (Negative) Urine Ketones (Negative) Urine Blood (Negative) Urine Nitrite (Negative) Urine Bilirubin (Negative) Urine Urobilinogen (<2.0) mg/dL Ur Leukocyte Esterase (Negative) Valproic Acid 94.6 ug/mL Influenza Type A (PCR) (Not Detectd) Influenza Type B (PCR) (Not Detectd) RSV (PCR) (Not Detectd) SARS-CoV-2 (PCR) (Not Detectd) 09/26/24 09/26/24 09/26/24 Range/Units 06:34 06:38 07:11 WBC 4.2 (3.8-10.6) k/uL RBC 4.04 (3.80-5.40) m/uL Hgb 12.6 (11.4-16.0) gm/dL Hct 38.4 (34.0-46.0) % MCV 95.0 (80.0-100.0) fL MCH 31.2 (25.0-35.0) pg MCHC 32.8 (31.0-37.0) g/dL RDW 12.5 (11.5-15.5) % Plt Count 136 L (150-450) k/uL MPV 8.0 Neutrophils % 45 % Lymphocytes % 40 % Monocytes % 10 % Eosinophils % 2 % Basophils % 1 % Neutrophils # 1.9 (1.3-7.7) k/uL Lymphocytes # 1.7 (1.0-4.8) k/uL Monocytes # 0.4 (0-1.0) k/uL Eosinophils # 0.1 (0-0.7) k/uL Basophils # 0.0 (0-0.2) k/uL Sodium (137-145) mmol/L Potassium (3.5-5.1) mmol/L Chloride (98-107) mmol/L Carbon Dioxide (22-30) mmol/L Anion Gap mmol/L BUN (7-17) mg/dL Creatinine (0.52-1.04) mg/dL Est GFR (CKD-EPI)AfAm (>60 ml/min/1.73 sqM) Est GFR (CKD-EPI)NonAf (>60 ml/min/1.73 sqM) Glucose (74-99) mg/dL POC Glucose (mg/dL) (70-110) mg/dL POC Glu Telephone Supervisor ID Plasma Lactic Acid Ezra (0.7-2.0) mmol/L Calcium (8.4-10.2) mg/dL Magnesium (1.6-2.3) mg/dL Total Bilirubin (0.2-1.3) mg/dL AST (14-36) U/L ALT (4-34) U/L Alkaline Phosphatase (38-126) U/L Total Protein (6.3-8.2) g/dL Albumin (3.5-5.0) g/dL Urine Color Colorless Urine Appearance Clear (Clear) Urine pH 7.5 (5.0-8.0) Ur Specific [place]ginson 1.013 (1.001-1.035) Urine Protein Negative (Negative) Urine Glucose (UA) Negative (Negative) Urine Ketones Negative (Negative) Urine Blood Negative (Negative) Urine Nitrite Negative (Negative) Urine Bilirubin Negative (Negative) Urine Urobilinogen <2.0 (<2.0) mg/dL Ur Leukocyte Esterase Negative (Negative) Valproic Acid ug/mL Influenza Type A (PCR) Not Detected (Not Detectd) Influenza Type B (PCR) Not Detected (Not Detectd) RSV (PCR) Not Detected (Not Detectd) SARS-CoV-2 (PCR) Not Detected (Not Detectd) - EKG Data -: EKG Interpreted by Me EKG Comments: EKG taken at 6: 51 showing a sinus rhythm. No ST segment elevations or depressions. No T wave abnormalities. Ventricular rate 75, AR interval 163, QRS duration 77, QT/QTc 367/396 - Radiology Data Radiology results: report reviewed, image reviewed Disposition Clinical Impression: Hyponatremia, Seizure, Hypomagnesemia Disposition: ADMITTED IP TO THIS [facility] Condition: Stable Time of Disposition: 08:57
[2024-09-26] MEDS: SODIUM CHLORIDE 0.9% 1,000 ML IV STA ×2 (06:45→07:57)
[2024-09-26 06:53] LABS: Basophils % (A) 1 %; Eosinophils # (A) 0.1 k/uL (0-0.7); Eosinophils % (A) 2 %; HCT 38.4 % (34.0-46.0); HGB 12.6 gm/dL (11.4-16.0); Lymphocytes # (A) 1.7 k/uL (1.0-4.8); Lymphocytes % (A) 40 %; MCH 31.2 pg (25.0-35.0); MCHC 32.8 g/dL (31.0-37.0); Monocytes # (A) 0.4 k/uL (0-1.0); Monocytes % (A) 10 %; Neutrophils # (A) 1.9 k/uL (1.3-7.7); Neutrophils % (A) 45 %; Platelet Count 136 k/uL (150-450); RBC 4.04 m/uL (3.80-5.40); RDW 12.5 % (11.5-15.5); WBC 4.2 k/uL (3.8-10.6)
[2024-09-26 07:01] LABS: ALT 13 U/L (4-34); AST 25 U/L (14-36); African American GFR (CKD) >90 (>60 ml/min/1.73 sqM); Albumin 3.3 g/dL (3.5-5.0); Alkaline Phosphatase 54 U/L (38-126); Anion Gap 7 mmol/L; Blood Urea Nitrogen 13 mg/dL (7-17); Calcium 8.4 mg/dL (8.4-10.2); Carbon Dioxide 25 mmol/L (22-30); Chloride 90 mmol/L (98-107); Glucose 91 mg/dL (74-99); Magnesium 1.5 mg/dL (1.6-2.3); Non-African American GFR(CKD) >90 (>60 ml/min/1.73 sqM); Potassium 3.8 mmol/L (3.5-5.1); Sodium 122 mmol/L (137-145); Total Bilirubin 0.4 mg/dL (0.2-1.3); Total Protein 6.2 g/dL (6.3-8.2)
[2024-09-26 07:06] LABS: Valproic Acid (Depakene) 94.6 ug/mL
[2024-09-26 07:30] LABS: Appearance,Urine Clear (Clear); Bilirubin,Urine Negative (Negative); Blood,Urine Negative (Negative); Color,Urine Colorless; Glucose,Urine (UA) Negative (Negative); Ketones,Urine Negative (Negative); Leukocyte Esterase,Urine Negative (Negative); Nitrite,Urine Negative (Negative); PH, Urine 7.5 (5.0-8.0); Protein,Urine Negative (Negative); Specific Gravity,Urine 1.013 (1.001-1.035); Urobilinogen,Urine <2.0 mg/dL (<2.0)
[2024-09-26 07:33] LABS: Influenza A Not Detected (Not Detectd); Influenza B Not Detected (Not Detectd); RSV Not Detected (Not Detectd)
--- NOTE | 2024-09-26 07:41 | XR ---
Chest, 2 view. HISTORY: Seizure COMPARISON: 02/05/2022 TECHNIQUE: PA and lateral views the chest are obtained. FINDINGS: The lungs are clear and there is no consolidative or interstitial opacity. There is no pleural effusion or pneumothorax. The heart, pulmonary vasculature, mediastinum and chaka appear normal. The osseous structures are intact. IMPRESSION: No significant abnormality seen. No acute cardiopulmonary disease. [facility], Workstation: [id number] 09/26/2024 7:39 AM
[2024-09-26] MEDS ORDERED: ACETAMINOPHEN TAB 325 MG TAB PO PRN (08:00)
[2024-09-26] MEDS ORDERED: NALOXONE 0.4 MG/ML 1 ML VIAL IV PRN (08:00)
[2024-09-26] MEDS: DESMOPRESSIN 0.2 MG TAB PO SCH (09:09)
[2024-09-26] MEDS: Brivaracetam [Briviact] 50 MG Tablet PO SCH (09:14)
[2024-09-26] MEDS: DIVALPROEX ER 500 MG TAB.ER.24H PO SCH (09:14)
[2024-09-26] MEDS: MAGNESIUM OXIDE 400 MG TAB PO STA (09:15)
[2024-09-26] MEDS: LACOSAMIDE 50 MG TABLET PO SCH (09:15)
[2024-09-26 12:06] LABS: African American GFR (CKD) >90 (>60 ml/min/1.73 sqM); Anion Gap 8 mmol/L; Blood Urea Nitrogen 11 mg/dL (7-17); Calcium 8.2 mg/dL (8.4-10.2); Carbon Dioxide 27 mmol/L (22-30); Chloride 92 mmol/L (98-107); Glucose 93 mg/dL (74-99); Non-African American GFR(CKD) >90 (>60 ml/min/1.73 sqM); Potassium 3.8 mmol/L (3.5-5.1); Sodium 127 mmol/L (137-145)
--- NOTE | 2024-09-26 12:56 | P.NPCON ---
History of Present Illness - Reason for Consult Consult date: 09/26/24 hyponatremia - Chief Complaint Seizures - History of Present Illness Patient is a 54 yo female history of cerebral palsy presented with seizures. Patient was sleeping in her bed when she called for help down the hallway. Upon entering patient's room caregiver reports she stated she fell like she was going to have a seizure. Subsequently after that patient had a 7 to 8-minute seizure consisting of facial twitching along with full body shaking. Per winch operator patient has been getting a lot more water with every meal because they were concerned she was getting dehydrated. Patient doing well in ED bed no new complaints. Vitals Reviewed Patient is awake, comfortable, no acute distress. Examination of the heart S1 and S2 Examination of the lungs bilateral breath sounds are heard Abdomen is soft nontender Examination of lower extremities trace edema L>R Review of Systems Constitutional: Reports as per HPI Past Medical History Past Medical History: Seizure Disorder Additional Past Medical History / Comment(s): Called correction to verify history: Cerebral Palsy, moderate intellectual delay, urinary incontince, swelling in legs is normal for patient, club feet, Dandy Walker Syndrome History of Any Multi-Drug Resistant Organisms: Unobtainable Past Surgical History: Unable to Obtain Past Anesthesia/Blood Transfusion Reactions: No Reported Reaction Past Psychological History: Depression Smoking Status: Never smoker Past Alcohol Use History: None Reported Past Drug Use History: None Reported Medications and Allergies Home Medications Medication Instructions Recorded Confirmed Type Calcium Carbonate/Vitamin D3 1 tab PO DAILY@69902/05/22 09/26/24 History [Calcium 600-Vit D3 5 Mcg (200 Iu)] Divalproex ER [Depakote ER] 500 mg PO BID@02/05/22 09/26/24 History Docusate [Colace] 100 mg PO BID@699,199902/05/22 09/26/24 History Escitalopram [Lexapro] 20 mg PO DAILY@69902/05/22 09/26/24 History Loratadine 10 mg PO DAILY@69902/05/22 09/26/24 History Udw-Wxku-Wuxwt Acid 1 cap PO DAILY@69902/05/22 09/26/24 History [-U Capsule (formulary)] Psyllium Husk [Metamucil] 0.4 gm PO DAILY@69902/05/22 09/26/24 History QUEtiapine FUMARATE [SEROquel] 200 mg PO HS@199902/05/22 09/26/24 History Desmopressin [Ddavp] 0.2 mg PO DAILY@69906/02/22 09/26/24 History Desmopressin [Ddavp] 0.4 mg PO HS@199906/02/22 09/26/24 History Folic Acid 0.4 mg PO DAILY@69906/02/22 09/26/24 History Brivaracetam [Briviact] 50 mg PO DAILY@69909/26/24 09/26/24 History Brivaracetam [Briviact] 75 mg PO HS@199909/26/24 09/26/24 History Lacosamide [Vimpat] 200 mg PO BID@699,199909/26/24 09/26/24 History Metamucil 0.52gm Cap 1 cap PO DAILY@69909/26/24 09/26/24 History Nystatin 100,000Unit/gm Cream 1 applic TOPICAL TID PRN 09/26/24 09/26/24 History [Mycostatin Cream] Triamterene-Hctz 37.5-25Mg 1 cap PO DAILY@69909/26/24 09/26/24 History [Dyazide 37.5-25 Capsule] Allergies Allergy/AdvReac Type Severity Reaction Status Date / Time chocolate flavor Allergy Unknown Verified 09/26/24 08:33 Physical Exam Vitals: Vital Signs Temp Pulse Resp BP Pulse Ox 09/26/24 08:53 97.8 F 72 16 125/85 97 09/26/24 06:12 97.5 F L 83 18 139/82 97 Intake and Output 09/25/24 09/26/24 09/26/24 22:59 06:59 14:59 Other: Weight 65.771 kg Results - Lab Results Most recent lab results Calcium 8.4 mg/dL (8.4-10.2) 09/26/24 06:34 Magnesium 1.5 mg/dL (1.6-2.3) L 09/26/24 06:34 09/26/24 06:38 09/26/24 11:15 Assessment and Plan Assessment: 1. Acute on chronic hypvolemic hyponatremia. Presented 122, improved 127 today. Likely exacerbated by high water intake and HCTZ use. 2. Seizure disorder exacerbated by hyponatremia. 3. Cerebral palsy with developmental delay 4. Essential HTN Plan: Discontinue HCTZ indefintely as can worsen hyponatremia Check urine osmolality and urine sodium level although may not be acurate as aptient received IVF and HCTZ Discontinue IVF, sodium already corrected by 5 today Add fluid restriction Other risk factors for hyponatremia include Lexapro and Depakote causing SIADH
--- NOTE | 2024-09-26 14:17 | P.HPIM ---
History of Present Illness H&P Date: 09/26/24 History of present illness: 54-year-old female with a past medical history significant for cerebral palsy, developmental delay, history of seizure disorder who presented to ER for the evaluation of a seizure. Patient was sent from [facility], caregiver at the bedside. Patient was sleeping in her bed when she called for help down the hallway. Caregiver reported that patient looked like she was going to have a seizure. Subsequently after that patient had 7 to 8-minute seizure like activity consistent facial twitching along with full body shaking. Patient later on return to her baseline. Patient denied any fever, chills, headache, vision changes, sore throat, productive cough, chest pain, palpitations, nausea vomiting diarrhea constipation dysuria urgency frequency weakness or numbness of extremities. Patient takes lacosamide, Depakote, Briviact, per shredder picker patient did not miss any dosages. Patient afebrile, heart rate 72, respiratory rate 16, blood pressure 125/85, saturating 97% on room air. CBC unremarkable, WBCs 4.2, hemoglobin 12.6, platelet 136. BMP showed low magnesium 1.5 and sodium 122. Sodium now improved to 127. UA was negative. Valproic acid level therapeutic. Viral panel negative. Chest x-ray negative for acute process. Assessment and plan: Acute on chronic hypovolemic hyponatremia: Presented with sodium of 122, improved to 127 today. Nephrology consulted Monitor sodium closely every 6 hour Hold off IV fluids Fluid restriction Nephrology consulted and followingrecommended to DC hydrochlorothiazide Hold desmopressin Seizure disorder: Recurrent seizure episode likely secondary to low sodium Compliant with home medications Continue home medications including lacosamide, Depakote and Briviact Seizure precautions Neurology consult History of cerebral palsy Developmental delay Hypertension DVT prophylaxis Subcutaneous heparin Monitor vital signs and labs Labs and medication were reviewed. Continue same treatment. Further recommendations as per clinical course of the patient PHYSICAL EXAMINATION: GENERAL: The patient is A&O , NAD HEENT: EOMI, Sclerae anicteric, Moist Mucous membranes Neck: Supple, Non tender, No JVD PULMONARY: Equal breath souds B/L, No wheezing, No crackles. CARDIOVASCULAR: S1, S2 present. No murmurs, rubs, or gallops. ABDOMEN: Soft, nontender, nondistended, normoactive bowel sounds. No guarding or rebound tenderness. MUSCULOSKELETAL: No edema, No cyanosis. No clubbing. Normal ROM. Intact peripheral pulses. NEUROLOGICAL: CN 2-12 grossly intact. No FND REVIEW OF SYSTEMS: CONSTITUTIONAL: No fever, no malaise, no fatigue. HEENT: No recent visual problems or hearing problems. Denied any sore throat. CARDIOVASCULAR: No chest pain, orthopnea, PND, no palpitations, no syncope. PULMONARY: No shortness of breath, no cough, no hemoptysis. GASTROINTESTINAL: No diarrhea, no nausea, no vomiting, no abdominal pain. NEUROLOGICAL: No headaches, no weakness, no numbness. HEMATOLOGICAL: Denies any bleeding or petechiae. GENITOURINARY: Denies any burning micturition, frequency, or urgency. MUSCULOSKELETAL/RHEUMATOLOGICAL: Denies any joint pain, swelling, or any muscle pain. ENDOCRINE: Denies any polyuria or polydipsia. The rest of the 14-point review of systems is negative. Dictation was produced using [employer] dictation software. please excuse any grammatical, word or spelling errors. Past Medical History Past Medical History: Seizure Disorder Additional Past Medical History / Comment(s): Called halfway to verify history: Cerebral Palsy, moderate intellectual delay, urinary incontince, swelling in legs is normal for patient, club feet, Dandy Walker Syndrome History of Any Multi-Drug Resistant Organisms: Unobtainable Past Surgical History: Unable to Obtain Past Anesthesia/Blood Transfusion Reactions: No Reported Reaction Past Psychological History: Depression Smoking Status: Never smoker Past Alcohol Use History: None Reported Past Drug Use History: None Reported Medications and Allergies Home Medications Medication Instructions Recorded Confirmed Type Calcium Carbonate/Vitamin D3 1 tab PO DAILY@69902/05/22 09/26/24 History [Calcium 600-Vit D3 5 Mcg (200 Iu)] Divalproex ER [Depakote ER] 500 mg PO BID@699,199902/05/22 09/26/24 History Docusate [Colace] 100 mg PO BID@02/05/22 09/26/24 History Escitalopram [Lexapro] 20 mg PO DAILY@69902/05/22 09/26/24 History Loratadine 10 mg PO DAILY@69902/05/22 09/26/24 History Sgs-Qtti-Qwjea Acid 1 cap PO DAILY@0702/05/22 09/26/24 History [-U Capsule (formulary)] Psyllium Husk [Metamucil] 0.4 gm PO DAILY@69902/05/22 09/26/24 History QUEtiapine FUMARATE [SEROquel] 200 mg PO HS@199902/05/22 09/26/24 History Desmopressin [Ddavp] 0.2 mg PO DAILY@69906/02/22 09/26/24 History Desmopressin [Ddavp] 0.4 mg PO HS@199906/02/22 09/26/24 History Folic Acid 0.4 mg PO DAILY@69906/02/22 09/26/24 History Brivaracetam [Briviact] 50 mg PO DAILY@69909/26/24 09/26/24 History Brivaracetam [Briviact] 75 mg PO HS@199909/26/24 09/26/24 History Lacosamide [Vimpat] 200 mg PO BID@699,199909/26/24 09/26/24 History Metamucil 0.52gm Cap 1 cap PO DAILY@69909/26/24 09/26/24 History Nystatin 100,000Unit/gm Cream 1 applic TOPICAL TID PRN 09/26/24 09/26/24 History [Mycostatin Cream] Triamterene-Hctz 37.5-25Mg 1 cap PO DAILY@69909/26/24 09/26/24 History [Dyazide 37.5-25 Capsule] Allergies Allergy/AdvReac Type Severity Reaction Status Date / Time chocolate flavor Allergy Unknown Verified 09/26/24 08:33 Physical Exam Vitals: Vital Signs Temp Pulse Resp BP Pulse Ox 09/26/24 13:38 73 18 141/76 98 09/26/24 08:53 97.8 F 72 16 125/85 97 09/26/24 06:12 97.5 F L 83 18 139/82 97 Intake and Output 09/25/24 09/26/24 09/26/24 22:59 06:59 14:59 Other: Weight 65.771 kg Results CBC & Chem 7: 09/26/24 06:38 09/26/24 11:15 Labs: Abnormal Lab Results - Last 24 Hours (Table) 09/26/24 09/26/24 09/26/24 Range/Units 06:34 06:38 11:15 Plt Count 136 L (150-450) k/uL Sodium 122 L 127 L (137-145) mmol/L Chloride 90 L 92 L (98-107) mmol/L Calcium 8.2 L (8.4-10.2) mg/dL Magnesium 1.5 L (1.6-2.3) mg/dL Total Protein 6.2 L (6.3-8.2) g/dL Albumin 3.3 L (3.5-5.0) g/dL
[2024-09-26 19:04] LABS: African American GFR (CKD) >90 (>60 ml/min/1.73 sqM); Anion Gap 8 mmol/L; Blood Urea Nitrogen 11 mg/dL (7-17); Calcium 8.6 mg/dL (8.4-10.2); Carbon Dioxide 28 mmol/L (22-30); Chloride 98 mmol/L (98-107); Glucose 119 mg/dL (74-99); Non-African American GFR(CKD) >90 (>60 ml/min/1.73 sqM); Potassium 3.9 mmol/L (3.5-5.1); Sodium 134 mmol/L (137-145)
[2024-09-26] MEDS: DOCUSATE 100 MG CAP PO SCH (20:29)
[2024-09-26] MEDS: HEPARIN SODIUM,PORCINE 5,000 UNIT/ML 1 ML VIAL SQ SCH (20:30)
[2024-09-26] MEDS: BRIVARACETAM PO SCH (20:37)
[2024-09-26] MEDS: QUEtiapine 200 MG TAB PO SCH (21:29)
--- NOTE | 2024-09-26 23:44 | P.CNNES ---
History of Present Illness Consult date: 09/26/24 Requesting physician: Chapo Hare Reason for Consult: Seizure History of Present Illness: Patient is a 54-year-old left-handed female came to the hospital by ambulance this morning at 6:10 AM after patient had a breakthrough seizure. Patient is a poor historian, resides in a senior living, and caregiver from the senior living was present, who provided the history. Patient had a seizure, that lasted for more than 5 minutes, which is unusual, as her seizures don't last that long. Therefore they called the ambulance and patient was brought to the hospital. Patient does not remember the seizure. Caregiver mentions that sometimes patient knows that the seizure is coming on. Patient started staring off on one side. No convulsion was noted. No tongue bite. The grimaldo and uses briefs therefore do not know if she lost control of urine. Last seizure was about 4 months prior which was a small 1. She usually gets seizures every 4-5 months. Patient always uses walker for ablation. She is able to eat by herself, dresses herself, cleans herself although requires help with the shower. EMS flowsheet not available in the chart. Vital signs on arrival blood pressure 139/82 pulse rate 83 temperature 97.5. Blood test shows normal CBC, sodium 122, potassium 3.8, normal renal functions, normal hepatic panel. UA negative, Depakote level 94.6. Influenza, RSV and coronavirus PCR negative. EKG showed sinus rhythm. Chest x-ray showed no significant abnormality. Patient was seen by myself previously on 06/04/2022, in which patient had a breakthrough seizure also felt to be related to hyponatremia with sodium of 121 at that time. Patient then had another seizure a month later on 07/08/2022, when she was seen by Dr. Ferris and was felt to be related to urinary tract infection and moderate hyponatremia with sodium 121. Patient has history of seizure disorder, cerebral palsy, and also is mentally challenged. Review of Systems All pertinent positive and negative view of systems pension in the HPI, otherwise unremarkable. Past Medical History Past Medical History: Seizure Disorder Additional Past Medical History / Comment(s): Called senior living to verify histor y: Cerebral Palsy, moderate intellectual delay, urinary incontince, swelling in legs is normal for patient, club feet, Dandy Walker Syndrome History of Any Multi-Drug Resistant Organisms: Unobtainable Past Surgical History: Unable to Obtain Past Anesthesia/Blood Transfusion Reactions: No Reported Reaction Past Psychological History: Depression Smoking Status: Never smoker Past Alcohol Use History: None Reported Past Drug Use History: None Reported Medications and Allergies Home Medications Medication Instructions Recorded Confirmed Type Calcium Carbonate/Vitamin D3 1 tab PO DAILY@69902/05/22 09/26/24 History [Calcium 600-Vit D3 5 Mcg (200 Iu)] Divalproex ER [Depakote ER] 500 mg PO BID@699,199902/05/22 09/26/24 History Docusate [Colace] 100 mg PO BID@699,199902/05/22 09/26/24 History Escitalopram [Lexapro] 20 mg PO DAILY@69902/05/22 09/26/24 History Loratadine 10 mg PO DAILY@69902/05/22 09/26/24 History Xwx-Iggg-Hyzxw Acid 1 cap PO DAILY@69902/05/22 09/26/24 History [-U Capsule (formulary)] Psyllium Husk [Metamucil] 0.4 gm PO DAILY@69902/05/22 09/26/24 History QUEtiapine FUMARATE [SEROquel] 200 mg PO HS@199902/05/22 09/26/24 History Desmopressin [Ddavp] 0.2 mg PO DAILY@69906/02/22 09/26/24 History Desmopressin [Ddavp] 0.4 mg PO HS@199906/02/22 09/26/24 History Folic Acid 0.4 mg PO DAILY@69906/02/22 09/26/24 History Brivaracetam [Briviact] 50 mg PO DAILY@69909/26/24 09/26/24 History Brivaracetam [Briviact] 75 mg PO HS@199909/26/24 09/26/24 History Lacosamide [Vimpat] 200 mg PO BID@699,199909/26/24 09/26/24 History Metamucil 0.52gm Cap 1 cap PO DAILY@69909/26/24 09/26/24 History Nystatin 100,000Unit/gm Cream 1 applic TOPICAL TID PRN 09/26/24 09/26/24 History [Mycostatin Cream] Triamterene-Hctz 37.5-25Mg 1 cap PO DAILY@0700 09/26/24 09/26/24 History [Dyazide 37.5-25 Capsule] Allergies Allergy/AdvReac Type Severity Reaction Status Date / Time chocolate flavor Allergy Unknown Verified 09/26/24 08:33 Physical Examination - Vital Signs Vital Signs: Vital Signs Temp Pulse Resp BP Pulse Ox 09/26/24 08:53 97.8 F 72 16 125/85 97 09/26/24 06:12 97.5 F L 83 18 139/82 97 Intake and Output 09/25/24 09/26/24 09/26/24 22:59 06:59 14:59 Other: Weight 65.771 kg Patient is a middle aged female, in no acute distress. Patient is very pleasant. Patient is alert awake. She knows her date of , but could not tell the current month or the year, city or state she is in or where she lives in. She knows that she is in the hospital but does not know the name of the building. Patient can name and repeat quite well, although often requires a second attempt. No obvious aphasia. Patient has mild slurring, which is baseline. Attention, concentration intact and fund of knowledge is limited. On cranial nerve examination, pupils are equal, round and reacting to light, visual jones are full on confrontation, with no neglect on double simultaneous depression. Patient's primary gaze revealed left eye slightly adducted and upwards. Patient has bilateral lateral rectus weakness noticed. Face is symmetric, tongue protrudes to the midline. Palatal elevation and sensation normal, hearing and shoulder shrug normal, facial sensation normal. On muscle strength testing, there is mild left pronator drift about 30. Her deltoid is 5, biceps 5, triceps 5, campus recruiting internship 5, hip flexion 4+ bilaterally. Her ankles are very stiff and probably weak likely from cerebral palsy. Patient did not cooperate well for ankle testing. Deep tendon reflexes are symmetric biceps 1+, brachioradialis 1, knees 2+, absent ankles and plantars are upgoing bilaterally. Sensory to touch is equal with no neglect on double simultaneous stimulation. Cerebellar function showed no ataxia for qzagtw-gt-[id number] testing. Tone is slightly increased in the lower limbs and bulk of muscles normal. Gait deferred.. On general examination, there is no carotid bruit or murmur, S1-S2 audible. Chest is clear on consultation. Abdomen is soft nontender. No organomegaly, bowel sounds present. Patient has moderate peripheral edema, left more than right. Results - Laboratory Findings CBC and BMP: 09/26/24 06:38 09/26/24 18:10 Abnormal Lab Findings: Abnormal Labs 09/26/24 09/26/24 06:34 06:38 Plt Count 136 L Sodium 122 L Chloride 90 L Magnesium 1.5 L Total Protein 6.2 L Albumin 3.3 L Assessment and Plan Assessment: * Breakthrough seizure, likely provoked due to hyponatremia * Seizure disorder * Cerebral palsy * Developmental delay * Clubfeet Plan: * Patient's seizure was likely provoked due to hyponatremia. * Treatment of hyponatremia as per IM. * Continue same dose of seizure medications including Vimpat 200 mg twice a day, Depakote 500 mg twice a day and Briviact 50 mg in a.m. and 75 mg at bedtime. * Depakote level therapeutic 94.6. Hepatic panel normal. * Check EEG. * Seizure precautions * Dr. Andrew Ferris to resume neurology service in the morning. * Thank you for the consult.
[2024-09-27 00:23] LABS: African American GFR (CKD) >90 (>60 ml/min/1.73 sqM); Anion Gap 6 mmol/L; Blood Urea Nitrogen 15 mg/dL (7-17); Calcium 8.4 mg/dL (8.4-10.2); Carbon Dioxide 27 mmol/L (22-30); Chloride 99 mmol/L (98-107); Glucose 127 mg/dL (74-99); Non-African American GFR(CKD) 87 (>60 ml/min/1.73 sqM); Potassium 4.2 mmol/L (3.5-5.1); Sodium 132 mmol/L (137-145)
[2024-09-27] MEDS: PSYLLIUM HUSK 100% 6 GM PACKET PO SCH (06:28)
[2024-09-27] MEDS: FOLIC ACID 1 MG TAB PO SCH (06:28)
[2024-09-27] MEDS: LORATADINE 10 MG TAB PO SCH (06:28)
[2024-09-27] MEDS: ESCITALOPRAM 20 MG TAB PO SCH (06:28)
[2024-09-27] MEDS: CALCIUM CARB-VIT D 500 MG-5 MCG TAB PO SCH (06:28)
[2024-09-27] MEDS ORDERED: TRIAMTERENE-HCTZ 37.5-25MG 1 EACH CAP PO SCH (07:00)
[2024-09-27] MEDS ORDERED: PSYLLIUM HUSK 0.4 GM PO SCH (07:00)
[2024-09-27 07:37] LABS: African American GFR (CKD) >90 (>60 ml/min/1.73 sqM); Anion Gap 7 mmol/L; Blood Urea Nitrogen 13 mg/dL (7-17); Calcium 8.6 mg/dL (8.4-10.2); Carbon Dioxide 26 mmol/L (22-30); Chloride 101 mmol/L (98-107); Glucose 90 mg/dL (74-99); Non-African American GFR(CKD) >90 (>60 ml/min/1.73 sqM); Sodium 134 mmol/L (137-145)
[2024-09-27] MEDS ORDERED: ZINC OXIDE PASTE (Z-GUARD) 1 APPLIC TOPICAL PRN (10:07)
--- NOTE | 2024-09-27 10:28 | P.PN ---
Subjective Patient is seen in follow-up for hyponatremia. Sodium level 134 this morning. Currently off IV fluids. Vital signs are stable. General: No acute distress. HEENT: Head exam is unremarkable. LUNGS: No audible rhonchi or wheezes. HEART: Rate and Rhythm are regular. ABDOMEN: Abdominal exam reveals normal bowel sounds. Nontender. EXTREMITITES: No edema. Objective - Vital Signs Vital signs: Vital Signs Temp 97.7 F 09/27/24 08:15 Pulse 72 09/27/24 08:15 Resp 16 09/27/24 08:15 BP 129/73 09/27/24 08:15 Pulse Ox 100 09/27/24 08:15 FiO2 Intake & Output 09/26/24 09/27/24 09/27/24 18:59 06:59 18:59 Intake Total 130 20 Output Total 450 300 950 Balance -320 -280 -950 Weight 65.771 kg 82.5 kg Intake: IV 10 20 Invasive Line 2 10 20 Oral 120 Output: Urine 450 300 950 Other: Voiding Method Diaper Diaper External Catheter External Catheter External Catheter - Labs CBC & Chem 7: 09/26/24 06:38 09/27/24 07:09 Labs: Abnormal Lab Results - Last 24 Hours (Table) 09/26/24 09/26/24 09/26/24 Range/Units 11:15 12:56 18:10 Sodium 127 L 134 L (137-145) mmol/L Chloride 92 L (98-107) mmol/L Glucose 119 H (74-99) mg/dL Calcium 8.2 L (8.4-10.2) mg/dL Ur Random Sodium 21 L (40-220) mmol/L 09/26/24 09/27/24 Range/Units 23:21 07:09 Sodium 132 L 134 L (137-145) mmol/L Chloride (98-107) mmol/L Glucose 127 H (74-99) mg/dL Calcium (8.4-10.2) mg/dL Ur Random Sodium (40-220) mmol/L Assessment and Plan Plan: Assessment: 1. Hypovolemic hyponatremia further worsen with the use of thiazide diuretic. Also on Depakote and Lexapro which can induce SIADH. Sodium level 122 on admission September 26, 2024 at 6:34 AM and 134 this morning at 7:09 AM. Urine sodium 21. 2. Cerebral palsy. 3. Seizure disorder exacerbated by hyponatremia. 4. Benign hypertension. Plan: Start D5W at 150 cc an hour to reverse correction of hyponatremia. Repeat sodium level at 2 PM. Follow-up urine osmolality. Check TSH. Avoid thiazide diuretics.
[2024-09-27] MEDS: DEXTROSE 5% IN WATER 1,000 ML IV ONE (10:49)
--- NOTE | 2024-09-27 13:09 | P.PN ---
Subjective Progress Note Date: 09/27/24 Patient is evaluated in follow-up on the medical floor. She has no acute complaints states that she is eating well. Nephrology following for the hyponatremia. Sodium level up to 134 today. Patient will be started on D5W with close monitoring of her sodium level. She remains off of desmopressin at this time. Hydrochlorothiazide has been discontinued indefinitely. Review of Systems Constitutional: Denied any fatigue denied any fever. Cardio vascular: denied any chest pain, palpitations Gastrointestinal: denied any nausea, vomiting, diarrhea Pulmonary: Denied any shortness of breath cough Neurologic denied any new focal deficits All inpatient medications were reviewed and appropriate changes in these medications as dictated in the interval history and assessment and plan. PHYSICAL EXAMINATION: GENERAL: The patient is alert and oriented x3, not in any acute distress. Well developed, well nourished. HEENT: Pupils are round and equally reacting to light. EOMI. No scleral icterus. No conjunctival pallor. Normocephalic, atraumatic. No pharyngeal erythema. No thyromegaly. CARDIOVASCULAR: S1 and S2 present. No murmurs, rubs, or gallops. PULMONARY: Chest is clear to auscultation, no wheezing or crackles. ABDOMEN: Soft, nontender, nondistended, normoactive bowel sounds. No palpable organomegaly. MUSCULOSKELETAL: No joint swelling or deformity. EXTREMITIES: No cyanosis, clubbing, or pedal edema. NEUROLOGICAL: Gross neurological examination did not reveal any focal deficits. SKIN: No rashes. 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 Dr. Tanner MD I have performed a history and physical examination and medical decision making of this patient, discussed the same with the dictator, and agree with the dictators assessment and plan as written, documented as a scribe. Based on total visit time, I have performed more than 50% of this visit. Objective - Vital Signs Vital signs: Vital Signs Temp 97.7 F 09/27/24 08:15 Pulse 73 09/27/24 11:08 Resp 16 09/27/24 11:08 BP 157/74 09/27/24 11:08 Pulse Ox 95 09/27/24 11:08 FiO2 Intake & Output 09/26/24 09/27/24 09/27/24 18:59 06:59 18:59 Intake Total 130 20 Output Total 450 300 950 Balance -320 -280 -950 Weight 65.771 kg 82.5 kg Intake: IV 10 20 Invasive Line 2 10 20 Oral 120 Output: Urine 450 300 950 Other: Voiding Method Diaper Diaper External Catheter External Catheter External Catheter - Labs CBC & Chem 7: 09/26/24 06:38 09/27/24 07:09 Labs: Abnormal Lab Results - Last 24 Hours (Table) 09/26/24 09/26/24 09/26/24 Range/Units 11:16 12:56 12:56 Sodium (137-145) mmol/L Glucose (74-99) mg/dL Osmolality 272 L (275-295) mOsm/kg Urine Osmolality 126 L (400-1100) mOsm/kg Ur Random Sodium 21 L (40-220) mmol/L 09/26/24 09/26/24 09/27/24 Range/Units 18:10 23:21 07:09 Sodium 134 L 132 L 134 L (137-145) mmol/L Glucose 119 H 127 H (74-99) mg/dL Osmolality (275-295) mOsm/kg Urine Osmolality (400-1100) mOsm/kg Ur Random Sodium (40-220) mmol/L Assessment and Plan Time with Patient: Less than 30
[2024-09-27] MEDS: DEXTROSE 5% IN WATER 1,000 ML IV SCH (18:36)
[2024-09-28 03:47] VITALS: RESP 16
--- NOTE | 2024-09-28 04:45 | EEG ---
ELECTROENCEPHALOGRAM REPORT CLINICAL HISTORY: This is a 54-year-old woman with history of cerebral palsy, seizure, who had a breakthrough seizure. The video EEG is obtained to evaluate for seizure epileptiform activity. RELEVANT MEDICATIONS: 1. Depakote. 2. Vimpat. EEG TYPE: This is a routine 21-channel EEG with video using the 10/20 electrode placement system. DESCRIPTION: Wakefulness is obtained. During awake state, the background consists of low-to- moderate voltage of 7 to 7.5 hertz activity. There is no physiological stage 2 sleep architecture. There is left temporal slowing more than central slowing. Interictal and ictal, there is sharply contoured activity over the left temporal region. No clear epileptiform discharge, or seizure on the EEG. ACTIVATION PROCEDURE: Photic stimulation did not evoke a posterior driving response. There is no abnormality during the photic stimulation. Hyperventilation is not performed. CLINICAL INTERPRETATION: This is an abnormal routine EEG. The background slowing is suggestive of mild encephalopathy. The focal slowing over the left temporal more than central is suggestive of cerebral dysfunction in the involved region. There is sharply contoured activity over the left temporal region with increased cortical irritability in the involved region. No clear epileptiform discharge, or seizure. Clinical correlation is recommended. MMODL / IJN: [id number] / [facility]ERSav[facility]
[2024-09-28 09:06] LABS: African American GFR (CKD) >90 (>60 ml/min/1.73 sqM); Anion Gap 8 mmol/L; Blood Urea Nitrogen 16 mg/dL (7-17); Carbon Dioxide 30 mmol/L (22-30); Chloride 97 mmol/L (98-107); Glucose 74 mg/dL (74-99); Non-African American GFR(CKD) >90 (>60 ml/min/1.73 sqM); Sodium 135 mmol/L (137-145)
[2024-09-28 09:15] LABS: Potassium 4.1 mmol/L (3.5-5.1)
--- NOTE | 2024-09-28 10:19 | P.PN ---
Subjective Patient is seen in follow-up for hyponatremia. Sodium level 135 this morning. Currently off IV fluids. Vital signs are stable. General: No acute distress. HEENT: Head exam is unremarkable. LUNGS: No audible rhonchi or wheezes. HEART: Rate and Rhythm are regular. ABDOMEN: Nontender. EXTREMITITES: No edema. Objective - Vital Signs Vital signs: Vital Signs Temp 98.0 F 09/28/24 08:15 Pulse 80 09/28/24 08:15 Resp 16 09/28/24 08:15 BP 112/63 09/28/24 08:15 Pulse Ox 99 09/28/24 08:15 FiO2 Intake & Output 09/27/24 09/28/24 09/28/24 18:59 06:59 18:59 Intake Total 240 180 Output Total 1700 900 Balance -1700 -660 180 Weight 83.5 kg Intake: Oral 240 180 Output: Urine 1700 900 Other: Voiding Method External Catheter External Catheter External Catheter - Labs CBC & Chem 7: 09/26/24 06:38 09/28/24 07:35 Labs: Abnormal Lab Results - Last 24 Hours (Table) 09/26/24 09/26/24 09/27/24 Range/Units 11:16 12:56 14:10 Sodium 134 L (137-145) mmol/L Chloride (98-107) mmol/L Osmolality 272 L (275-295) mOsm/kg TSH (0.465-4.680) mIU/L Urine Osmolality 126 L (400-1100) mOsm/kg 09/27/24 09/27/24 09/28/24 Range/Units 17:10 20:12 07:35 Sodium 133 L 132 L 135 L (137-145) mmol/L Chloride 97 L (98-107) mmol/L Osmolality (275-295) mOsm/kg TSH 4.810 H (0.465-4.680) mIU/L Urine Osmolality (400-1100) mOsm/kg Assessment and Plan Plan: Assessment: 1. Hypovolemic hyponatremia further worsen with the use of thiazide diuretic. Also on Depakote and Lexapro which can induce SIADH. Sodium level 122 on [place] September 26, 2024 at 6:34 AM and 135 this morning. Urine sodium 21. Urine osmolality 126. TSH 4.8. 2. Cerebral palsy. 3. Seizure disorder exacerbated by hyponatremia. 4. Benign hypertension. Controlled. Plan: Encouraged oral intake, particularly protein. Maintain fluid restriction. Avoid thiazide diuretics. Repeat BMP and magnesium level 2 to 3 days postdischarge. Follow-up outpatient in 1 week.
[2024-09-28 11:16] LABS: T4, Free (Free Thyroxine) 1.45 ng/dL (0.78-2.19)
[2024-09-28 12:20] VITALS: BP 124/76; PULSE 87; TEMP 98.2
--- NOTE | 2024-09-28 13:02 | P.DS ---
Providers Date of admission: 09/26/24 07:46 Attending physician: Tee Quinn Consults: 09/26/24 10:05 Consult Physician Routine Consulting Provider: Jessica Cameron Consult Reason/Comments: Hyponatremia Do you want consulting provider notified?: Yes 09/26/24 10:06 Consult Physician Routine Consulting Provider: Scar Reaves Consult Reason/Comments: Seizure Do you want consulting provider notified?: Yes [facility] care [facility]: [facility] Course: Final Diagnosis Acute on chronic hyponatremia Seizure disorder exacerbated by low sodium History of cerebral palsy Developmental delay Hypertension Dandy-Walker syndrome History of PERFORMANCE IMPROVEMENT MANAGER shunt Discharge Disposition Stable for discharge back to the [facility]. Patient remain off hydrochlorothiazide and desmopressin. Recommend to repeat a BMP in 3 to 4 days. Follow-up closely with PCP. Follow-up with nephrology on discharge. Hospital Course 54-year-old female with a past medical history significant for cerebral palsy, developmental delay, history of seizure disorder who presented to ER for the evaluation of a seizure. Patient was sent from [facility], caregiver at the bedside. Patient was sleeping in her bed when she called for help down the hallway. Caregiver reported that patient looked like she was going to have a seizure. Subsequently after that patient had 7 to 8-minute seizure like activity consistent facial twitching along with full body shaking. Patient later on return to her baseline. Patient denied any fever, chills, headache, vision changes, sore throat, productive cough, chest pain, palpitations, nausea vomiting diarrhea constipation dysuria urgency frequency weakness or numbness of extremities. Patient takes lacosamide, Depakote, Briviact, per visual display manager patient did not miss any dosages. Patient afebrile, heart rate 72, respiratory rate 16, blood pressure 125/85, saturating 97% on room air. CBC unremarkable, WBCs 4.2, hemoglobin 12.6, platelet 136. BMP showed low magnesium 1.5 and sodium 122. UA was negative. Valproic acid level therapeutic. Viral panel negative. Chest x-ray negative for acute process. Patient was admitted to the hospital with a consult placed to nephrology for the hyponatremia. [place] that the seizure-like activity was exacerbated by the presence of hyponatremia. Initially treated with normal saline and then D5 water. Hydrochlorothiazide was discontinued as well as desmopressin. Patient does continue on her home seizure medications including lacosamide Depakote and Briviact. Sodium has remained stable in the last 48 hours currently running at 135. Patient was cleared for discharge. Please see medication reconciliation for a list of current medications. Thank you for allowing us to participate in the care of this patient. The impression and plan of care has been dictated by Sabra Rivas Nurse Practitioner as directed. Dr. Tanner MD I have performed a history and physical examination and medical decision making of this patient, discussed the same with the dictator, and agree with the dictators assessment and plan as written, documented as a scribe. Based on total visit time, I have performed more than 50% of this visit. Patient Condition at Discharge: Stable Plan - Discharge Summary Discharge Rx Participant: No New Discharge Prescriptions: Continue Loratadine 10 mg PO DAILY@0700 Escitalopram [Lexapro] 20 mg PO DAILY@0700 Docusate [Colace] 100 mg PO BID@699,1999 Folic Acid 0.4 mg PO DAILY@699 Nystatin 100,000Unit/gm Cream [Mycostatin Cream] 1 applic TOPICAL TID PRN PRN Reason: Skin Irritation Metamucil 0.52gm Cap 1 cap PO DAILY@0700 Brivaracetam [Briviact] 75 mg PO HS@1999 Brivaracetam [Briviact] 50 mg PO DAILY@07 Lacosamide [Vimpat] 200 mg PO BID@699,1999 QUEtiapine FUMARATE [SEROquel] 200 mg PO HS@1999 Sgn-Twlz-Nfogv Acid [-U Capsule (formulary)] 1 cap PO DAILY@0700 Calcium Carbonate/Vitamin D3 [Calcium 600-Vit D3 5 Mcg (200 Iu)] 1 tab PO DAILY@0700 Divalproex ER [Depakote ER] 500 mg PO BID@699,1999 Psyllium Husk [Metamucil] 0.4 gm PO DAILY@0700 Discontinued Desmopressin [Ddavp] 0.4 mg PO HS@1999 Desmopressin [Ddavp] 0.2 mg PO DAILY@0700 Triamterene-Hctz 37.5-25Mg [Dyazide 37.5-25 Capsule] 1 cap PO DAILY@0700 Discharge Medication List Calcium Carbonate/Vitamin D3 [Calcium 600-Vit D3 5 Mcg (200 Iu)] 1 tab PO DAILY@69902/05/22 [History] Divalproex ER [Depakote ER] 500 mg PO BID@699,199902/05/22 [History] Docusate [Colace] 100 mg PO BID@699,199902/05/22 [History] Escitalopram [Lexapro] 20 mg PO DAILY@69902/05/22 [History] Loratadine 10 mg PO DAILY@69902/05/22 [History] Ell-Zsso-Ddcpg Acid [-U Capsule (formulary)] 1 cap PO DAILY@69902/05/22 [History] Psyllium Husk [Metamucil] 0.4 gm PO DAILY@69902/05/22 [History] QUEtiapine FUMARATE [SEROquel] 200 mg PO HS@199902/05/22 [History] Folic Acid 0.4 mg PO DAILY@69906/02/22 [History] Brivaracetam [Briviact] 50 mg PO DAILY@69909/26/24 [History] Brivaracetam [Briviact] 75 mg PO HS@199909/26/24 [History] Lacosamide [Vimpat] 200 mg PO BID@699,199909/26/24 [History] Metamucil 0.52gm Cap 1 cap PO DAILY@69909/26/24 [History] Nystatin 100,000Unit/gm Cream [Mycostatin Cream] 1 applic TOPICAL TID PRN 09/26/24 [History] Follow up Appointment(s)/Referral(s): Ochoa Funes DO [Primary Care Provider] - 1-2 days Jonas Patel DO [STAFF PHYSICIAN] - 1 Week Ambulatory/Diagnostic Orders: Basic Metabolic Panel [LAB.AMB] Time Frame: 3 Days, Location: None Selected Activity/Diet/Wound Care/Special Instructions: Return to the Senior Living Hold desmopressin and triamterene/hctz on hold. Discharge Disposition: HOME SELF-CARE
--- NOTE | 2024-09-28 18:05 | P.PN ---
Subjective Progress Note Date: 09/28/24 I am seeing the patient for the first time during this hospital visit. Seems the patient has a history of seizure, cerebral palsy the mental delay and had a breakthrough seizure likely provoked due to hyponatremia per my colleague. Per the nurse patient has not had any further seizure like activity overnight or today that is reported. She feels the patient is doing well. Patient herself feels that she is doing well and denies of any complaints. Objective - Vital Signs Vital signs: Vital Signs Temp 98.2 F 09/28/24 12:12 Pulse 87 09/28/24 12:12 Resp 16 09/28/24 12:12 BP 124/76 09/28/24 12:12 Pulse Ox 95 09/28/24 12:12 FiO2 Intake & Output 09/27/24 09/28/24 09/28/24 18:59 06:59 18:59 Intake Total 240 300 Output Total 1700 900 300 Balance -1700 -660 0 Weight 83.5 kg Intake: Oral 240 300 Output: Urine 1700 900 300 Other: Voiding Method External Catheter External Catheter External Catheter - Exam General: Lying in bed and does not appear in acute distress. Neuro: The patient is awake alert oriented to self and place. She does not know the name of the hospital. Is following simple commands. No aphasia from limited language No facial weakness. No dysarthria Motor she is lifting all extremities above gravity - Labs CBC & Chem 7: 09/26/24 06:38 09/28/24 07:35 Labs: Abnormal Lab Results - Last 24 Hours (Table) 09/27/24 09/28/24 Range/Units 20:12 07:35 Sodium 132 L 135 L (137-145) mmol/L Chloride 97 L (98-107) mmol/L TSH 4.810 H (0.465-4.680) mIU/L Assessment and Plan Assessment: * Breakthrough seizure, likely provoked due to hyponatremia--current clinically patient is stable and no further seizures * Seizure disorder * Cerebral palsy * Developmental delay * [place] Plan: * Treatment of hyponatremia as per IM. * Continue same dose of seizure medications including Vimpat 200 mg twice a day, Depakote 500 mg twice a day and Briviact 50 mg in a.m. and 75 mg at bedtime. * Depakote level therapeutic 94.6. Hepatic panel normal. * Routine EEG: Is abnormal. The background slowing is suggestive of mild encephalopathy. The focal slowing over the left temporal more than the central is suggestive of cerebral dysfunction in the involved region. There are sharply contoured activity over the left temporal region which increases risk of cortical irritability in the involved region. No clear epileptiform discharge or seizure. * Seizure precautions * Commend the patient to follow-up with a neurologist as an outpatient within 2 to 3 weeks. Otherwise no additional workup Time with Patient: Less than 30
== END 2024-09-28 16:13 | disposition home or self-care (01) ==
LOC: EC 06:10 → 3SCARD 07:46
PROVIDERS: ADMIT Hospitalist; ATTEND Hospitalist
DX: E87.1 Hypo-osmolality and hyponatremia (principal); G40.909 Epilepsy, unspecified, not intractable, without status epilepticus; E83.42 Hypomagnesemia; E86.1 Hypovolemia; F32.A Depression, unspecified; G80.9 Cerebral palsy, unspecified; I10 Essential (primary) hypertension; Q03.1 Atresia of foramina of Magendie and Luschka; Q66.89 Other specified congenital deformities of feet; Z79.899 Other long term (current) drug therapy; Z98.2 Presence of cerebrospinal fluid drainage device
CPT/HCPCS: 96372 ×3; 96360; 99285; 36415; 95816; 93005; 84439; 80164; 84300; 83930; 80053; 80048 ×3; 84443; 83605; 83735 ×3; 84295; 85025; 81003; 83935; 80235; 87636; 71046; G0378 ×3; J1644 ×3; 96361; 96365; 96366; 96367; 96375; 96376